=== PATIENT | female | born 1990 | race Caucasian/White ===

== ENCOUNTER → 2020-08-29 15:30 | Outpatient (BNVA) | payer OTHER, SELFPAY | PROVIDERS: Visit Provider Advanced Practice Midwife | DX: Z30.42 Encounter for surveillance of injectable contraceptive (principal) | CPT/HCPCS: 99211 ==

== ENCOUNTER → 2020-11-15 15:06 | Outpatient (BNVA) | payer OTHER, SELFPAY | PROVIDERS: Visit Provider Advanced Practice Midwife | DX: Z30.42 Encounter for surveillance of injectable contraceptive (principal) | CPT/HCPCS: 96372; 99211; J1050 ==

== ENCOUNTER → 2021-01-31 15:11 | Outpatient (BNVA) | payer OTHER, SELFPAY | PROVIDERS: Visit Provider Advanced Practice Midwife | DX: Z30.42 Encounter for surveillance of injectable contraceptive (principal) | CPT/HCPCS: 96372; 99211; J1050 ==

== ENCOUNTER 2021-06-01 13:53 | Outpatient (REF) | payer OTHER, SELFPAY ==
[2021-06-02 09:53] LABS: CT PCR NOT DETECTED (Not Detect.); NG PCR NOT DETECTED (Not Detect.)
[2021-06-02 10:08] LABS: BV Int Neg Control Negative (Negative); BV Int Pos Control Positive (Positive)
== END 2021-06-01 13:54 | disposition home or self-care (01) ==
LOC: HO.LAB 13:53
PROVIDERS: Visit Provider Advanced Practice Midwife
DX: Z01.411 Encounter for gynecological examination (general) (routine) with abnormal findings (principal); R10.2 Pelvic and perineal pain; Z20.2 Contact with and (suspected) exposure to infections with a predominantly sexual mode of transmission
CPT/HCPCS: 81003; 81025; 87086; 87480; 87491; 87510; 87591; 87660; 88142; 96372

== ENCOUNTER 2021-07-24 10:49 | Outpatient (REF) | payer OTHER, SELFPAY ==
[2021-07-24 13:02] LABS: Appearance Urine CLEAR; Color Urine YELLOW; Glucose Urine UA NEG (NEG); Leukocyte Esterase Urine NEG (NEG); Nitrite Urine NEG (NEG); UACC Culture Trigger NO; Urine Blood TRACE (NEG); Urine Ketones 5 MG/DL (NEG); Urine Protein NEG (NEG-TRACE)
[2021-07-24 13:14] LABS: WBC Urine 0-2 /HPF (0-4)
[2021-07-24 13:15] LABS: Squamous Epithelial Cell Urine 1+ /LPF
== END 2021-07-24 10:50 | disposition home or self-care (01) ==
LOC: HO.LAB 10:49
PROVIDERS: Visit Provider Advanced Practice Midwife
DX: R30.0 Dysuria (principal)
CPT/HCPCS: 81001; 81003

== ENCOUNTER 2021-10-23 13:52 | Emergency (ER) | payer OTHER, SELFPAY ==
[2021-10-23 15:07] VITALS: BP 144/95; PULSE 105; RESP 18; TEMP 37.1; O2SAT 100
[2021-10-23 15:45] VITALS: BP 120/68; PULSE 63; RESP 18; TEMP 36.8; O2SAT 100; BMI 29.0
== END 2021-10-23 16:55 | disposition left against medical advice (07) ==
PROVIDERS: Emergency Provider Emergency Medicine
DX: R31.9 Hematuria, unspecified (principal)
CPT/HCPCS: 99283

== ENCOUNTER 2021-10-30 15:22 | Outpatient (REF) | payer OTHER, SELFPAY ==
--- NOTE | ~2021-10-30 | XR_ITS ---
EXAMINATION: XR LUMBAR SPINE XR SACRUM COCCYX CLINICAL INFORMATION: Nausea COMPARISON: None TECHNIQUE: 4 views of the lumbar spine and 3 views of the sacrum and coccyx FINDINGS: 5 nonrib-bearing lumbar-type vertebral bodies. No acute visible fracture or dislocation. Mild levocurvature at the thoracolumbar junction. Vertebral body heights and disc spaces are maintained. Posterior elements are intact. Paraspinal soft tissues are unremarkable. Mild degenerative changes of the left sacroiliac joint. Joint spaces and alignment are otherwise maintained. Pelvic loops are noted. Visualized bowel gas is unremarkable. XR/XR sacrum coccyx min 2V IMPRESSION: 1. No acute visible fracture or dislocation. 2. Mild levocurvature at the thoracolumbar junction. 3. Mild degenerative changes of the left sacroiliac joint.
--- NOTE | ~2021-10-30 | XR_ITS ---
EXAMINATION: XR LUMBAR SPINE XR SACRUM COCCYX CLINICAL INFORMATION: Nausea COMPARISON: None TECHNIQUE: 4 views of the lumbar spine and 3 views of the sacrum and coccyx FINDINGS: 5 nonrib-bearing lumbar-type vertebral bodies. No acute visible fracture or dislocation. Mild levocurvature at the thoracolumbar junction. Vertebral body heights and disc spaces are maintained. Posterior elements are intact. Paraspinal soft tissues are unremarkable. Mild degenerative changes of the left sacroiliac joint. Joint spaces and alignment are otherwise maintained. Pelvic loops are noted. Visualized bowel gas is unremarkable. XR/XR lumbar spine 2-3V IMPRESSION: 1. No acute visible fracture or dislocation. 2. Mild levocurvature at the thoracolumbar junction. 3. Mild degenerative changes of the left sacroiliac joint.
== END 2021-10-30 15:23 | disposition home or self-care (01) ==
LOC: HO.XRAY 15:22
PROVIDERS: Visit Provider Nurse Practitioner
DX: Z01.818 Encounter for other preprocedural examination (principal); R11.0 Nausea; K59.04 Chronic idiopathic constipation; M53.3 Sacrococcygeal disorders, not elsewhere classified
CPT/HCPCS: 72100; 72220; 99202

== ENCOUNTER 2021-11-03 12:43 | Outpatient (REF) | payer OTHER, SELFPAY ==
[2021-11-03 13:04] LABS: MANUAL DIFF FLAG NO
[2021-11-03 13:18] LABS: Basophils Percent Auto 0.5 % (0-2); Eosinophils Absolute Auto 0.1 X10*3/uL (0.0-0.4); Eosinophils Percent Auto 2.6 % (0-4); Hematocrit 42.1 % (37.0-47.0); Hemoglobin 13.9 g/dl (12.0-16.0); Lymphocytes Absolute Auto 2.1 X10*3/uL (1.2-4.9); Mean Corpuscular Hemoglobin 28.5 pg (27.0-33.0); Mean Corpuscular Volume 86.3 fL (80.0-98.0); Mean Platelet Volume 8.6 fL (9.4-12.3); Monocytes Absolute Auto 0.4 X10*3/uL (0.1-1.2); Monocytes Percent Auto 6.6 % (2-11); Neutrophils Absolute Auto 2.8 x10*3/uL (2.0-8.3); Neutrophils Percent Auto 51.3 % (45-73); Platelet Count 335 X10*3/uL (160-400); Red Blood Count 4.88 X10*6/uL (4.20-5.50); Red Cell Distribution Width 13.2 % (11.0-16.0); White Blood Count 5.5 X10*3/uL (4.8-10.8)
[2021-11-03 13:39] LABS: Alanine Aminotransferase 13 U/L (0-31); Albumin Level 4.5 g/dL (3.5-5.0); Alkaline Phosphatase 57 U/L (39-117); Anion Gap 10 (12-20); Aspartate Amino Transferase 14 U/L (5-31); Bilirubin Total 0.5 mg/dL (0.0-1.0); Blood Urea Nitrogen 14 mg/dL (9-16); Calcium 9.9 mg/dL (8.4-10.2); Carbon Dioxide 26 mmol/L (22-29); Chloride 108 mmol/L (96-108); Estimated Glomerular Filt Rate > 60; Glucose Random 90 mg/dL (60-115); Potassium 4.4 mmol/L (3.3-5.1); Sodium 140 mmol/L (135-145); Total Protein 8.2 g/dL (6.5-8.0)
[2021-11-03 13:58] LABS: TSH reflex Free T4 0.56 uIU/mL (0.32-4.0)
== END 2021-11-03 12:44 | disposition home or self-care (01) ==
LOC: HO.LAB 12:43
PROVIDERS: Visit Provider Nurse Practitioner
DX: K59.04 Chronic idiopathic constipation (principal); M53.3 Sacrococcygeal disorders, not elsewhere classified; R11.0 Nausea
CPT/HCPCS: 36415; 80053; 84443; 85025

== ENCOUNTER 2021-11-17 11:09 | Outpatient (REF) | payer OTHER, SELFPAY | END 2021-11-17 11:10 | disposition home or self-care (01) | LOC: HO.LAB 11:09 | DX: R31.9 Hematuria, unspecified (principal) | CPT/HCPCS: 99202 ==

== ENCOUNTER → 2021-11-28 15:28 | Outpatient (BNVA) | payer OTHER, SELFPAY | PROVIDERS: Visit Provider Nurse Practitioner | DX: M53.3 Sacrococcygeal disorders, not elsewhere classified (principal) | CPT/HCPCS: 99212 ==

== ENCOUNTER 2021-12-07 15:57 | Outpatient (REF) | payer OTHER, SELFPAY ==
--- NOTE | ~2021-12-07 | US_ITS ---
EXAMINATION: US RETROPERITONEAL LIMITED (RENAL ONLY) CLINICAL INFORMATION: Hematuria, unspecified. COMPARISON: CT abdomen and pelvis 05/03/2019. TECHNIQUE: Real-time imaging of the kidneys. FINDINGS: RIGHT KIDNEY: 11.0 x 4.7 x 5.7 cm (SAG x AP x TRV). The kidney is normal in size, contour, and echogenicity. Renal cortical thickness is normal. There is a 3.2 x 2.3 x 3.4 cm area in the central mid pole isoechoic with the renal cortex. This probably represents a hypertrophied or prominent column of David. No mass is evident on noncontrast enhanced CT April 2019 in this region. No renal calculi or hydronephrosis. LEFT KIDNEY: 10.9 x 5.0 x 5.6 cm (SAG x AP x TRV). The kidney is normal in size, contour, and echogenicity. Renal cortical thickness is normal. No calculi or focal parenchymal lesions. No hydronephrosis. US/US renal BI IMPRESSION: Probable hypertrophied or prominent column of David in the right kidney. Otherwise unremarkable exam.
== END 2021-12-07 15:58 | disposition home or self-care (01) ==
LOC: HO.US 15:57
DX: R31.9 Hematuria, unspecified (principal)
CPT/HCPCS: 76775

== ENCOUNTER 2022-02-22 14:00 | Outpatient (RCR) | payer OTHER, SELFPAY ==
--- NOTE | 2022-01-19 16:30 | MHC.PT.EP ---
[facility] [place] Office [place] Office [place] Office [address] Lobo Lerner [address] [phone] F: [phone] F: [phone] F: [phone] F: [phone] Physical Therapy Plan of Care Date of Evaluation: Date of Surgery: NA Diagnosis: Pelvic and perineal pain Assessment: Fransisca is a a 31 year old female who is referred to PT for pelvic and perineal pain . Pt reports of having low back pain which travels down to her perineum with sit to stand, and bending over. Her symptoms started 6 months after giving . She also reported of having SAUD. On PT examination she presented with low tone of PFM, lower perineal body, decreased pelvic floor muscle strength, possible grade 2 cystocole and grade 1 rectocele and TTP over several spots in the superficial and deep layers of pelvic floor. Due to these impairments she has difficulty performing ADLS which require her to bend over, and perform sit to stand. She would benefit from skilled PT to address the aforementioned impairments and improve tolerance to functional activities. Frequency and Duration: The patient will be seen 1/week for 12 weeks Short Term Goals: 1. Pt will have 50% decrease in pain in sitting and demonstrate good use of lumbar roll while sitting in 2 weeks 2. Pt will demonstrate WNL pelvic floor excursion and ability to contract, relax and bear down in 4 weeks. 3. Pt will demonstrate an increase in pelvic floor muscle strength by 1 grade which will prevent leakage with coughing and sneezing in 6 weeks. Husker Operator Goals: 1. Pt will be able to perform sit to stand and bend over to picker operator objects without pain in 8 weeks. 2. Pt will demonstrate ability to activate PFM in various functional positions like squatting, kneeling, sit to housing quality standard inspector 10 weeks. 3. Pt will be independent with HEP for symptom management and maintenance following d/c in 12 weeks. Treatment Plan: Modalities to reduce pain, spasms and effusion. Manual therapy to restore motion and function. Therapeutic exercise to improve strength and flexibility. Neuromuscular re-education for posture and balance. Therapeutic activities to return to functional activities of daily living. Electronically signed by: Please sign and return to therapist. Thank you for your referral.
--- NOTE | 2022-03-01 11:36 | MHC.PT.DC ---
[facility] [place] Office [place] Office [place] Office [address] Lobo Lerner 140 [facility] [phone] F: [phone] F: [phone] F: [phone] F: [phone] Physical Therapy Discharge Report Diagnosis: Pelvic and perineal pain Date of Surgery: NA Date of Evaluation: 01/19/22 Date of Discharge: 03/01/22 Treatments to Date: 3 Cancellations to Date: 3 No Shows to Date: 0 Discharge Status: Patient Elected to Stop Discharge Summary: Fransisca d/c herself from PT as she had personal issues which was making it difficult for her to attend PT. She stated she will return to therapy when she has the ability to attend the session. Electronically signed by: Kimberlyn Baxter PT DPT Please sign and return to therapist. Thank you for your referral.
== END 2022-03-01 11:37 | disposition home or self-care (01) ==
LOC: HO.PT 14:00
DX: R10.2 Pelvic and perineal pain (principal)
CPT/HCPCS: 97110; 97112; 97140; 97161

== ENCOUNTER 2023-01-28 12:51 | Emergency (ER) | payer BC, SELFPAY ==
--- NOTE | ~2023-01-28 | US_ITS ---
EXAMINATION: US OBSTETRICAL ULTRASOUND CLINICAL INFORMATION: 8 weeks . Bleeding. COMPARISON: None available.. LMP: 11/02/2022. Gestational age by maternal dates is 12 weeks 3 days. Estimated date of delivery by maternal dates is 08/09/2023. TECHNIQUE: Ultrasound of the maternal pelvis is performed using transabdominal transducer. M-mode Doppler is also performed. FINDINGS: There is a single intrauterine gestational sac with visible yolk sac, embryo/fetus, and cardiac activity. A subchorionic hemorrhage is identified. This measures 5.9 x 3.9 x 5.3 cm.. HR: 161 beats per minute. CRL (crown rump length): 4.44 cm (11 weeks 2 days +/- 4 days). BEATRIZ (estimated date of delivery): 08/17/2023 +/- 4 days. MATERNAL ADNEXA: The right maternal ovary measures 2.3 x 1.2 and 1.9 cm. The left maternal ovary measures 2.2 x 2.2 x 2.3 cm. 2 cm corpus luteum. There is no significant maternal adnexal mass. No maternal pelvic ascites. US/US OB <= 14 weeks fetus IMPRESSION: 1. Single intrauterine gestation with ultrasound gestational age of 11 weeks 2 days +/- 4 days. 2. Estimated date of delivery is 08/17/2023 +/- 4 days. 3. Subchorionic hemorrhage present.
[2023-01-28 13:07] VITALS: BP 143/77; PULSE 95; RESP 19; TEMP 36.6; O2SAT 98; BMI 25.0
--- NOTE | 2023-01-28 13:08 | ED.PREGNANCY ---
HPI - General Chief complaint: General Medical <JIMENA Narvaez - Last Filed: 01/28/23 13:10> Stated complaint: quest of miscarriage <JIMENA Narvaez - Last Filed: 01/28/23 13:10> Time Seen by Provider: 01/28/23 16:31 <JIMENA Narvaez - Last Filed: 01/28/23 13:10> Source: patient <Darell Simmons MD - Last Filed: 01/28/23 17:29> Mode of arrival: ambulatory <Darell Simmons MD - Last Filed: 01/28/23 17:29> Limitations: no limitations <Darell Simmons MD - Last Filed: 01/28/23 17:29> History of Present Illness HPI Narrative: 32 yo female currently 13 weeks , LMP 11/02/22 who presents to the ER for evaluation of brown vaginal discharge/wiping bright-red blood after urination that started 2 hours ago. She reports mild sprits of cramping but no severe pain. Scheduled to see her OBGYN for this and 3 days. 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 <Darell Simmons MD - Last Filed: 01/28/23 17:29> Related Data Home medications: Previous Rx's Medication Instructions Recorded medroxyprogesterone 150 mg/mL 150 mg IM [id number] #1 mL 05/09/22 intramuscular suspension (Depo-Provera) doxylamine succinate 25 mg tablet 25 mg PO BEDTIME may take 1/2 tab 01/28/23 (Unisom (doxylamine)) at bedtime 30 days #30 tabs pyridoxine (vitamin B6) 25 mg 25 mg PO TID 30 days #90 tabs 01/28/23 tablet <JIMENA Narvaez - Last Filed: 01/28/23 13:10> Allergies/Adverse reactions: Allergies Allergy/AdvReac Type Severity Reaction Status Date / Time No Known Allergies Allergy Verified 01/28/23 13:06 [No Known Allergies*] <JIMENA Narvaez - Last Filed: 01/28/23 13:10> Review of Systems Review of Systems: All other systems are reviewed and are negative Constitutional: Reports as per HPI and Reports no additional constitutional complaints Eyes: Reports as per HPI and Reports no additional eye complaints Reports system reviewed and no additional complaints, except as documented Cardiovascular: Reports as per HPI and Reports no additional cardiovascular complaints Respiratory: Reports as per HPI and Reports no additional respiratory complaints Gastrointestinal: Reports as per HPI and Reports no additional gastrointestinal complaints Genitourinary: Reports no additional female genitourinary complaints Musculoskeletal: Reports no additional musculoskeletal complaints Skin/Breast: Reports system reviewed and no additional complaints, except as docu Psychiatric: Reports no additional psychiatric complaints Endocrine: Reports no additional endocrine complaints Hematologic/Lymphatic: Reports no additional hematologic/lymphatic complaints Allergic/Immunologic: Reports no additional allergic/immunologic complaints Reports system reviewed and no additional complaints, except as documented and Reports Abnormal speech present <Darell Simmons MD - Last Filed: 01/28/23 17:29> [facility] Past Medical History Medical History: Medical History Coccygeal pain Hematuria <JIMENA Narvaez - Last Filed: 01/28/23 13:10> Social History Social History: Social History Alcohol intake: never Patient Tobacco Use Status: Never used Tobacco Advance Directives: No Advance Directives Information Provided: No Sexual orientation: Straight/Heterosexual Gender identity: Female <JIMENA Narvaez - Last Filed: 01/28/23 13:10> Physical Exam Vital Signs: Vital Signs: Last Vital Signs Temp 98 F 01/28/23 13:07 Pulse 95 01/28/23 13:07 Resp 01/28/23 13:07 BP 143/77 H 01/28/23 13:07 Pulse Ox 98 01/28/23 13:07 BMI result Body Mass Index 25.0 <JIMENA Narvaez - Last Filed: 01/28/23 13:10> Vital Signs: Last Vital Signs Temp 98 F 01/28/23 13:07 Pulse 95 01/28/23 13:07 Resp 19 01/28/23 13:07 BP 143/77 H 01/28/23 13:07 Pulse Ox 98 01/28/23 13:07 BMI result Body Mass Index 25.0 Vital signs have been reviewed as appeared to be correct. Blood pressure normal. Heart rate normal. Respiration rate normal. Temperature normal. Oxygen saturation normal. <Darell Simmons MD - Last Filed: 01/28/23 17:29> Appearance: Alert. Oriented X3. No acute distress. Head: Normal external exam. Normocephalic. Atraumatic. No Sorensen signs noted. No raccoon eyes noted Eyes: PERRLA. EOMI. Conjunctiva and sclera normal. Eyelids normal. ENT: TM's Normal. Pharynx normal. Uvula midline. Moist mucous membranes. No trismus noted. No drooling noted. No muffled voice noted. Neck: Normal inspection. Neck supple. FROM. No adenopathy. Thyroid Normal. No meningeal signs. No neck mass noted. CVS: Normal heart rate and rhythm. Heart sound normal. No murmurs noted. Pulses normal throughout. Respiratory: No respiratory distress. Painless inspiration. Breath sounds normal. No wheezes/rales/rhonchi noted. Chest nontender. No accessory muscle usage noted or decreased air movement noted. Abdomen: Soft and nontender. Bowel sounds normal in all 4 quadrants. No distention noted. No organomegaly noted. No visible injury noted. Pelvic exam: No acute active bleeding, no blood clots, os is closed, scant blood in the cervical vault. Back: No CVA tenderness. Full range of motion noted. Skin: Skin warm and dry. Normal skin color. Normal skin turgor. No rashes/lesions/lacerations noted. Extremities: No lower extremity edema. Extremities exhibit normal range of motion. Extremities nontender. Neuro: Oriented X 3. Cranial nerve exam: II-XII are grossly intact No motor deficit. No sensory deficit. Reflexes normal. <Darell Simmons MD - Last Filed: 01/28/23 17:29> Course Course Course Narrative: RME - 32 yo female currently 13 weeks , LMP 11/02/22 who presents to the ER for evaluation of brown vaginal discharge that started 2 hours ago. She reports mild sprits of cramping but no severe pain. Has not seen her OB yet for this . Not taking a due to persistent nausea and vomiting. Plan: labs and pelvic U/S. <JIMENA Narvaez - Last Filed: 01/28/23 13:10> Threatened : Bedrest, refrain from strenuous activity and sexual intercourse, patient otherwise was instructed to follow up with her scheduled 1st appointment for this in 2 days with Ob. Otherwise stable H&H, vital signs. Patient is B Rh positive <Darell Simmons MD - Last Filed: 01/28/23 17:29> Medical Decision Making Differential Diagnosis Differential Diagnoses: The differential diagnosis associated with the presentation includes (Threatened , complete , hemodynamic instability, severe anemia, ABO Rh type) <Darell Simmons MD - Last Filed: 01/28/23 17:29> Lab Data MDM Lab Attestation statement: I reviewed the patient's lab results. <Darell Simmons MD - Last Filed: 01/28/23 17:29> Result Diagrams: 01/28/23 15:30 01/28/23 15:30 <JIMENA Narvaez - Last Filed: 01/28/23 13:10> Labs: Lab Results 01/28/23 01/28/23 01/28/23 Range/Units 15:30 15:30 15:30 WBC 6.6 (4.8-10.8) X10*3/uL RBC 4.54 (4.20-5.50) X10*6/uL Hgb 12.9 (12.0-16.0) g/dl Hct 38.7 (37.0-47.0) % MCV 85.2 (80.0-98.0) fL MCH 28.4 (27.0-33.0) pg MCHC 33.3 (31.0-35.0) g/dl RDW 13.1 (11.0-16.0) % Plt Count 312 (160-400) X10*3/uL MPV 8.5 L (9.4-12.3) fL Immature Gran % (Auto) 0.3 (0.0-0.4) % Neut % (Auto) 60.2 (45-73) % Lymph % (Auto) 31.2 (20-40) % [place] % (Auto) 6.6 (2-11) % Eos % (Auto) 1.2 (0-4) % Baso % (Auto) 0.5 (0-2) % Lymph # (Auto) 2.1 (1.2-4.9) X10*3/uL [place] # (Auto) 0.4 (0.1-1.2) X10*3/uL Eos # (Auto) 0.1 (0.0-0.4) X10*3/uL Baso # (Auto) 0.0 (0.0-0.2) X10*3/uL Abs Immat Gran (auto) 0.02 (0.00-0.03) X10*3/uL Absolute Neuts (auto) 4.0 (2.0-8.3) x10*3/uL Absolute Nucleated RBC 0.000 (0.0-0.012) X10*3/uL Nucleated RBC % (auto) 0.0 (0.0-0.2) /100WBC Sodium 137 (135-145) mmol/L Potassium 3.7 (3.3-5.1) mmol/L Chloride 105 (96-108) mmol/L Carbon Dioxide 25 (22-29) mmol/L Anion Gap 11 L (12-20) BUN 8 L (9-16) mg/dL Creatinine 0.63 (0.5-1.4) mg/dL Estim Creat Clear Calc 122.2 Estimated GFR > 60 Random Glucose 84 (60-115) mg/dL Calcium 9.5 (8.4-10.2) mg/dL Magnesium 2.0 (1.6-2.6) mg/dL Total Bilirubin 0.5 (0.0-1.0) mg/dL Direct Bilirubin 0.2 (0.0-0.5) mg/dL AST 11 (5-31) U/L ALT 7 (0-31) U/L Alkaline Phosphatase 42 (39-117) U/L Total Protein 7.4 (6.5-8.0) g/dL Albumin 4.2 (3.5-5.0) g/dL Beta HCG, Quant 41133 mIU/mL Urine Color Urine Appearance Urine pH (5.0-9.0) Ur Specific [place] (1.005-1.025) Urine Protein (Neg-Trace) mg/dL Urine Glucose (UA) (Negative) mg/dL Urine Ketones (Negative) mg/dL Urine Blood (Negative) Urine Nitrite (Negative) Ur Leukocyte Esterase (Negative) Urine RBC (0-2) /HPF Urine WBC (0-5) /HPF Ur Squamous Epith Cells (0-2) /HPF Urine Bacteria (None Seen) Hyaline Casts (0-2) /LPF Blood Type B Positive 01/28/23 Range/Units 15:30 WBC (4.8-10.8) X10*3/uL RBC (4.20-5.50) X10*6/uL Hgb (12.0-16.0) g/dl Hct (37.0-47.0) % MCV (80.0-98.0) fL MCH (27.0-33.0) pg MCHC (31.0-35.0) g/dl RDW (11.0-16.0) % Plt Count (160-400) X10*3/uL MPV (9.4-12.3) fL Immature Gran % (Auto) (0.0-0.4) % Neut % (Auto) (45-73) % Lymph % (Auto) (20-40) % [place] % (Auto) (2-11) % Eos % (Auto) (0-4) % Baso % (Auto) (0-2) % Lymph # (Auto) (1.2-4.9) X10*3/uL [place] # (Auto) (0.1-1.2) X10*3/uL Eos # (Auto) (0.0-0.4) X10*3/uL Baso # (Auto) (0.0-0.2) X10*3/uL Abs Immat Gran (auto) (0.00-0.03) X10*3/uL Absolute Neuts (auto) (2.0-8.3) x10*3/uL Absolute Nucleated RBC (0.0-0.012) X10*3/uL Nucleated RBC % (auto) (0.0-0.2) /100WBC Sodium (135-145) mmol/L Potassium (3.3-5.1) mmol/L Chloride (96-108) mmol/L Carbon Dioxide (22-29) mmol/L Anion Gap (12-20) BUN (9-16) mg/dL Creatinine (0.5-1.4) mg/dL Estim Creat Clear Calc Estimated GFR Random Glucose (60-115) mg/dL Calcium (8.4-10.2) mg/dL Magnesium (1.6-2.6) mg/dL Total Bilirubin (0.0-1.0) mg/dL Direct Bilirubin (0.0-0.5) mg/dL AST (5-31) U/L ALT (0-31) U/L Alkaline Phosphatase (39-117) U/L Total Protein (6.5-8.0) g/dL Albumin (3.5-5.0) g/dL Beta HCG, Quant mIU/mL Urine Color Yellow Urine Appearance Clear Urine pH 8.0 (5.0-9.0) Ur Specific [place] 1.010 (1.005-1.025) Urine Protein Negative (Neg-Trace) mg/dL Urine Glucose (UA) Negative (Negative) mg/dL Urine Ketones Negative (Negative) mg/dL Urine Blood Small (1+) H (Negative) Urine Nitrite Negative (Negative) Ur Leukocyte Esterase Negative (Negative) Urine RBC 6-10 H (0-2) /HPF Urine WBC 0-5 (0-5) /HPF Ur Squamous Epith Cells 0-2 (0-2) /HPF Urine Bacteria None Seen (None Seen) Hyaline Casts 0-2 (0-2) /LPF Blood Type <JIMENA Narvaez - Last Filed: 01/28/23 13:10> Lab Results 01/28/23 01/28/23 01/28/23 Range/Units 15:30 15:30 15:30 WBC 6.6 (4.8-10.8) X10*3/uL RBC 4.54 (4.20-5.50) X10*6/uL Hgb 12.9 (12.0-16.0) g/dl Hct 38.7 (37.0-47.0) % MCV 85.2 (80.0-98.0) fL MCH 28.4 (27.0-33.0) pg MCHC 33.3 (31.0-35.0) g/dl RDW 13.1 (11.0-16.0) % Plt Count 312 (160-400) X10*3/uL MPV 8.5 L (9.4-12.3) fL Immature Gran % (Auto) 0.3 (0.0-0.4) % Neut % (Auto) 60.2 (45-73) % Lymph % (Auto) 31.2 (20-40) % [place] % (Auto) 6.6 (2-11) % Eos % (Auto) 1.2 (0-4) % Baso % (Auto) 0.5 (0-2) % Lymph # (Auto) 2.1 (1.2-4.9) X10*3/uL [place] # (Auto) 0.4 (0.1-1.2) X10*3/uL Eos # (Auto) 0.1 (0.0-0.4) X10*3/uL Baso # (Auto) 0.0 (0.0-0.2) X10*3/uL Abs Immat Gran (auto) 0.02 (0.00-0.03) X10*3/uL Absolute Neuts (auto) 4.0 (2.0-8.3) x10*3/uL Absolute Nucleated RBC 0.000 (0.0-0.012) X10*3/uL Nucleated RBC % (auto) 0.0 (0.0-0.2) /100WBC Sodium 137 (135-145) mmol/L Potassium 3.7 (3.3-5.1) mmol/L Chloride 105 (96-108) mmol/L Carbon Dioxide 25 (22-29) mmol/L Anion Gap 11 L (12-20) BUN 8 L (9-16) mg/dL Creatinine 0.63 (0.5-1.4) mg/dL Estim Creat Clear Calc 122.2 Estimated GFR > 60 Random Glucose 84 (60-115) mg/dL Calcium 9.5 (8.4-10.2) mg/dL Magnesium 2.0 (1.6-2.6) mg/dL Total Bilirubin 0.5 (0.0-1.0) mg/dL Direct Bilirubin 0.2 (0.0-0.5) mg/dL AST 11 (5-31) U/L ALT 7 (0-31) U/L Alkaline Phosphatase 42 (39-117) U/L Total Protein 7.4 (6.5-8.0) g/dL Albumin 4.2 (3.5-5.0) g/dL Beta HCG, Quant 47716 mIU/mL Urine Color Urine Appearance Urine pH (5.0-9.0) Ur Specific [place] (1.005-1.025) Urine Protein (Neg-Trace) mg/dL Urine Glucose (UA) (Negative) mg/dL Urine Ketones (Negative) mg/dL Urine Blood (Negative) Urine Nitrite (Negative) Ur Leukocyte Esterase (Negative) Urine RBC (0-2) /HPF Urine WBC (0-5) /HPF Ur Squamous Epith Cells (0-2) /HPF Urine Bacteria (None Seen) Hyaline Casts (0-2) /LPF Blood Type B Positive 01/28/23 Range/Units 15:30 WBC (4.8-10.8) X10*3/uL RBC (4.20-5.50) X10*6/uL Hgb (12.0-16.0) g/dl Hct (37.0-47.0) % MCV (80.0-98.0) fL MCH (27.0-33.0) pg MCHC (31.0-35.0) g/dl RDW (11.0-16.0) % Plt Count (160-400) X10*3/uL MPV (9.4-12.3) fL Immature Gran % (Auto) (0.0-0.4) % Neut % (Auto) (45-73) % Lymph % (Auto) (20-40) % [place] % (Auto) (2-11) % Eos % (Auto) (0-4) % Baso % (Auto) (0-2) % Lymph # (Auto) (1.2-4.9) X10*3/uL [place] # (Auto) (0.1-1.2) X10*3/uL Eos # (Auto) (0.0-0.4) X10*3/uL Baso # (Auto) (0.0-0.2) X10*3/uL Abs Immat Gran (auto) (0.00-0.03) X10*3/uL Absolute Neuts (auto) (2.0-8.3) x10*3/uL Absolute Nucleated RBC (0.0-0.012) X10*3/uL Nucleated RBC % (auto) (0.0-0.2) /100WBC Sodium (135-145) mmol/L Potassium (3.3-5.1) mmol/L Chloride (96-108) mmol/L Carbon Dioxide (22-29) mmol/L Anion Gap (12-20) BUN (9-16) mg/dL Creatinine (0.5-1.4) mg/dL Estim Creat Clear Calc Estimated GFR Random Glucose (60-115) mg/dL Calcium (8.4-10.2) mg/dL Magnesium (1.6-2.6) mg/dL Total Bilirubin (0.0-1.0) mg/dL Direct Bilirubin (0.0-0.5) mg/dL AST (5-31) U/L ALT (0-31) U/L Alkaline Phosphatase (39-117) U/L Total Protein (6.5-8.0) g/dL Albumin (3.5-5.0) g/dL Beta HCG, Quant mIU/mL Urine Color Yellow Urine Appearance Clear Urine pH 8.0 (5.0-9.0) Ur Specific [place] 1.010 (1.005-1.025) Urine Protein Negative (Neg-Trace) mg/dL Urine Glucose (UA) Negative (Negative) mg/dL Urine Ketones Negative (Negative) mg/dL Urine Blood Small (1+) H (Negative) Urine Nitrite Negative (Negative) Ur Leukocyte Esterase Negative (Negative) Urine RBC 6-10 H (0-2) /HPF Urine WBC 0-5 (0-5) /HPF Ur Squamous Epith Cells 0-2 (0-2) /HPF Urine Bacteria None Seen (None Seen) Hyaline Casts 0-2 (0-2) /LPF Blood Type <Darell Simmons MD - Last Filed: 01/28/23 17:29> Independent Interpretation I performed an independent interpretation of an: Ultrasound (1. Single intrauterine gestation with ultrasound gestational age of 11 weeks 2 days +/- 4 days. 2. Estimated date of delivery is 08/17/2023 +/- 4 days. 3. Subchorionic hemorrhage present.) <Darell Simmons MD - Last Filed: 01/28/23 17:29> Radiology Impression Discussion of test interpretation with radiology: I have reviewed the radiologist's reading. <Darell Simmons MD - Last Filed: 01/28/23 17:29> Discharge Plan Discharge Clinical Impression: , threatened <JIMENA Narvaez - Last Filed: 01/28/23 13:10> Patient Disposition: Home, Self-Care <JIMENA Narvaez - Last Filed: 01/28/23 13:10> Instructions: Threatened Miscarriage (ED) <JIMENA Narvaez - Last Filed: 01/28/23 13:10> Additional Instructions: Bedrest, refrain from standing for long time, lifting, bending, pushing, or sexual intercourse. Seek medical attention for severe cramps/pain or significant vaginal bleeding. Keep your appointment with med and 2 days as scheduled. <JIMENA Narvaez - Last Filed: 01/28/23 13:10> Prescriptions: No Action pyridoxine (vitamin B6) 25 mg tablet 25 mg PO TID 30 Days Qty: 90 1RF Unisom (doxylamine) 25 mg tablet 25 mg PO BEDTIME 30 Days Qty: 30 0RF medroxyprogesterone [Depo-Provera] 150 mg/mL suspension 150 mg IM [id number] Qty: 1 3RF <JIMENA Narvaez - Last Filed: 01/28/23 13:10>
[2023-01-28 15:39] LABS: MANUAL DIFF FLAG NO
[2023-01-28 15:41] LABS: Basophils Percent Auto 0.5 % (0-2); Eosinophils Absolute Auto 0.1 X10*3/uL (0.0-0.4); Eosinophils Percent Auto 1.2 % (0-4); Hematocrit 38.7 % (37.0-47.0); Hemoglobin 12.9 g/dl (12.0-16.0); Imm Gran Abs Auto 0.02 X10*3/uL (0.00-0.03); Imm Gran Pct Auto 0.3 % (0.0-0.4); Lymphocytes Absolute Auto 2.1 X10*3/uL (1.2-4.9); Lymphocytes Percent Auto 31.2 % (20-40); Mean Corpuscular HGB Conc 33.3 g/dl (31.0-35.0); Mean Corpuscular Hemoglobin 28.4 pg (27.0-33.0); Mean Corpuscular Volume 85.2 fL (80.0-98.0); Mean Platelet Volume 8.5 fL (9.4-12.3); Monocytes Absolute Auto 0.4 X10*3/uL (0.1-1.2); Monocytes Percent Auto 6.6 % (2-11); Neutrophils Percent Auto 60.2 % (45-73); Platelet Count 312 X10*3/uL (160-400); Red Blood Count 4.54 X10*6/uL (4.20-5.50); Red Cell Distribution Width 13.1 % (11.0-16.0); White Blood Count 6.6 X10*3/uL (4.8-10.8)
[2023-01-28 15:46] LABS: Appearance Urine Clear; Color Urine Yellow; Glucose Urine UA Negative (Negative); Leukocyte Esterase Urine Negative (Negative); Nitrite Urine Negative (Negative); UMIC TRIGGER UACC YES; Urine Blood Small (1+) (Negative); Urine Ketones Negative (Negative); Urine Protein Negative (Neg-Trace)
[2023-01-28 15:51] LABS: Bacteria Urine None Seen (None Seen); Hyaline Casts Urine 0-2 /LPF (0-2); Squamous Epithelial Cell Urine 0-2 /HPF (0-2); WBC Urine 0-5 /HPF (0-5)
[2023-01-28 16:01] LABS: Alanine Aminotransferase 7 U/L (0-31); Albumin Level 4.2 g/dL (3.5-5.0); Alkaline Phosphatase 42 U/L (39-117); Anion Gap 11 (12-20); Aspartate Amino Transferase 11 U/L (5-31); Bilirubin Direct 0.2 mg/dL (0.0-0.5); Bilirubin Total 0.5 mg/dL (0.0-1.0); Blood Urea Nitrogen 8 mg/dL (9-16); Calcium 9.5 mg/dL (8.4-10.2); Carbon Dioxide 25 mmol/L (22-29); Chloride 105 mmol/L (96-108); Creatinine Clr Calc Pharmacy 122.2; Estimated Glomerular Filt Rate > 60; Glucose Random 84 mg/dL (60-115); HCG Quantitative 14189 mIU/mL; Potassium 3.7 mmol/L (3.3-5.1); Sodium 137 mmol/L (135-145); Total Protein 7.4 g/dL (6.5-8.0)
[2023-01-28 17:38] VITALS: BP 104/66; PULSE 74; RESP 16; TEMP 37.2; O2SAT 98
== END 2023-01-28 17:56 | disposition home or self-care (01) ==
PROVIDERS: Physician Assistant; Emergency Provider Emergency Medicine
DX: O20.0 Threatened abortion (principal); Z79.899 Other long term (current) drug therapy; Z3A.13 13 weeks gestation of pregnancy
CPT/HCPCS: 36415; 76801; 80048; 80076; 81001; 83735; 84702; 85025; 86900; 86901; 99284

== ENCOUNTER 2023-01-30 09:08 | Outpatient (REF) | payer BC, SELFPAY ==
[2023-01-30 14:03] LABS: CT PCR NOT DETECTED (Not Detect.); NG PCR NOT DETECTED (Not Detect.)
[2023-01-31 10:03] LABS: BV Int Neg Control Negative (Negative); BV Int Pos Control Positive (Positive)
== END 2023-01-30 09:09 | disposition home or self-care (01) ==
LOC: HO.LNP 09:08
PROVIDERS: Visit Provider Advanced Practice Midwife
DX: O20.0 Threatened abortion (principal); Z20.2 Contact with and (suspected) exposure to infections with a predominantly sexual mode of transmission; R31.9 Hematuria, unspecified
CPT/HCPCS: 0353U; 87086; 87480; 87510; 87660

== ENCOUNTER 2023-02-15 12:34 | Outpatient (REF) | payer BC, SELFPAY ==
[2023-02-15 16:24] LABS: Amphetamine Screen Urine Not Detected (Not Detect); Barbiturates, Urine Not Detected (Not Detect); Benzodiazepines Screen Urine Not Detected (Not Detect); Cannabinoid Screen Urine POSITIVE (Not Detect); Cocaine Screen Urine Not Detected (Not Detect); Fentanyl, urine Not Detected (Not Detect); Opiate Screen Urine Not Detected (Not Detect); Phencyclidine Screen Urine Not Detected (Not Detect)
[2023-02-15 16:26] LABS: Hemoglobin 12.2 g/dl (12.0-16.0); Mean Corpuscular Hemoglobin 28.7 pg (27.0-33.0); Mean Corpuscular Volume 87.1 fL (80.0-98.0); Mean Platelet Volume 8.8 fL (9.4-12.3); Platelet Count 319 X10*3/uL (160-400); Red Blood Count 4.25 X10*6/uL (4.20-5.50); Red Cell Distribution Width 13.3 % (11.0-16.0); White Blood Count 6.4 X10*3/uL (4.8-10.8)
[2023-02-18 04:04] LABS: Syphilis Screen Nonreactive (Nonreactive)
[2023-02-18 04:10] LABS: HBsAGNum1 0.35 S/CO (0.00-0.99); HIV AB/AG Nonreactive (Nonreactive); HIV Num 1 0.07 S/CO (0.00-0.99); Hepatitis B Surface Antigen Negative (Negative); ~HepC Num1 0.22 S/CO (0.00-0.79); ~Hepatitis C Antibody Nonreactive (Nonreactive)
[2023-02-19 18:18] LABS: Rubella IgG Antibody 3.98 Index
[2023-02-27 11:39] LABS: CF Ethnicity NG; Cystic Fibrosis POSITIVE (NEGATIVE)
== END 2023-02-15 12:35 | disposition home or self-care (01) ==
LOC: HO.LAB 12:34
PROVIDERS: PCP Advanced Practice Midwife; Visit Provider Advanced Practice Midwife
DX: Z34.82 Encounter for supervision of other normal pregnancy, second trimester (principal)
CPT/HCPCS: 80307; 81220; 85027; 86762; 86780; 86787; 86803; 86850; 86900; 87086; 87340; 87389

== ENCOUNTER 2023-02-15 13:13 | Outpatient (REF) | payer BC, SELFPAY ==
--- NOTE | ~2023-02-15 | US_ITS ---
EXAMINATION: Limited OB ultrasound CLINICAL INFORMATION: Previous exam 01/28/2023 COMPARISON: None. TECHNIQUE: Transabdominal OB ultrasound FINDINGS: There is a single viable intrauterine . heart rate is 156 bpm. Yolk sac not seen. There is a subchorionic fluid collection suggestive of subchorionic hemorrhage measuring 6 x 0.9 x 4.4 cm. This measured 5.9 x 3.9 x 5.3 cm on previous exam and is slightly decreased in size. The maternal ovaries are normal. The right maternal ovary measures 2.8 x 1.3 x 2.8 cm. The left maternal ovary measures 2.3 x 1.7 x 2.3 cm. There is a 1.8 x 1.4 x 1.7 cm left corpus luteum. There is no fluid in the pelvis. US/US OB limited IMPRESSION: Single viable intrauterine . Interval decrease in subchorionic hemorrhage from 01/28/2023.
== END 2023-02-15 13:14 | disposition home or self-care (01) ==
LOC: HO.US 13:13
PROVIDERS: Visit Provider Advanced Practice Midwife
DX: O46.8X1 Other antepartum hemorrhage, first trimester (principal); O41.8X10 Other specified disorders of amniotic fluid and membranes, first trimester, not applicable or unspecified; Z3A.13 13 weeks gestation of pregnancy
CPT/HCPCS: 76815; 99212

== ENCOUNTER 2024-04-02 13:52 | Outpatient (AMB) | payer BC, SELFPAY ==
--- NOTE | 2024-04-02 14:42 | MHC.OFFVIS ---
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 She had to be induced for that delivery. She has been nursing and more recently pumping milk but she has not been giving it to her baby since it has been hurting her because she is afraid she could have breast cancer or something and does not want to if baby anything so she is pumping and dumping. The pain feels deep and feels to her like when she changes position that changes kind of where it is but it is at 11:00 o'clock left breast and it is deep on palpation I can not feel any mass or swelling or warmth or tenderness the patient is able to direct acne to exactly the spot there maybe settle change in tissue there but not that I can describe. No discrete mass. Patient also has a Nexplanon in place in her left arm, and was wondering if maybe the baby needing against her arm could have something to do with more chemicals being released, She also had a weird reaction when her partner came inside her twice and she is wondering if she has suddenly become allergic to is ejaculate. 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 Left breast essentially nontender no masses palpated either. Patient able to point my fingers in the direction at 11:00 o'clock where she feels tenderness and it is a very discrete location but I was not able to feel any discrete mass with any certainty there. There has no warmth no erythema. Assessment & Plan Assessment & Plan (1) mastalgia: Comment: x 2 months ,still pumping milk ( discarding 2' fear), breast pain 11 oo on left breast . Code(s): O92.29 - Other disorders of breast associated with and the puerperium Category: Medical (2) Nexplanon in place: Comment: States it was inserted 8 months ago immediately at [facility].. Code(s): Z97.5 - Presence of (intrauterine) contraceptive device Category: Medical Plan This note is constructed using voice recognition software. While every effort has been made to ensure accuracy, engine turner errors may have been included. I can not palpate any discrete mass there has no warmth or erythema or anything leaving me to suspect that she has mastitis. If there was any sign about I would have given her antibiotics at this point I am ordering breast ultrasound and diagnostic mammogram for the left breast and a breast surgery referral for follow-up. Discussed that if there were any thing that I can not palpate such as an abscess that it is possible there may be some intervention necessary and then she would be in the right hands for that. In the meantime I recommend she continue to do what she is doing she is expressing milk and I think she should continue to do that if she chose to give to the baby currently that would probably be be fine we have she ends up with a mammogram I would ask that she ask them how long she should pump and dump from after the mammogram. Her follow-up will be her breast surgery. I encouraged her to consider other issues that might have contributed to her unusual reactions during intercourse and discussed their so many processes in play at that event and it is very difficult to say what she experienced. Given that she has not had this reaction before now and this pain is new I would not think it would be related to the Nexplanon. Orders: Orders US breast LT complete Today O92.29 - Other disorders of breast associated with and the puerperium MM tomosynthesis diagnostic LT Today O92.29 - Other disorders of breast associated with and the puerperium Referrals Breast Surgery Referral O92.29 - Other disorders of breast associated with and the puerperium Coding Level of Care Code Est Pt Level 3 (14058) Diagnoses mastalgia O92.[address] Z97.5
[2024-04-02 14:43] VITALS: BMI 31.6
--- OUTSIDE RECORDS SUMMARY | 2024-04-03 11:19 | XMS_ITS | Continuity of Care Document ---
Author Organization [facility] Address [address] [place] [address], [address] [place] [address]- Care Team Providers Care Site Safety Coordinator Name Role Phone Not on Staff, PCP Primary Care Physician Unavail able [place] [facility] [place]s): 07/29/23 - 08/05/23 [facility] [address] [facility], [address]th [place] [address]- Attending Physician: Luciano Lechuga MD Admitting Physician: Namrata Wang MD Referring Physician: Namrata Wang MD Allergies, Adverse Reactions, Alerts No Known Allergies Immunizations Given and Recorded Vaccine Date Status Refusal Reason influenza virus vaccine, inactivated 1 07/29/23 Gi lilliam tetanus/diphtheria/pertussis, acel(Tdap) 05/20/23 Given 1Result Comment: [07/29/2023] [id number] Medications Albuterol (Eqv-ProAir HFA) 90 mcg/inh inhalation aerosol 2 puffs, Inhalation, Every 6 hours, # 8.5 Gm, 1 Refills, Maintenance, 04/17/23 11:11:00 EDT, [facility]/pharmacy #[id number], Partial fill upon patient request if the prescription is for a schedule II opioid drug., 2 puffs Inhalation Every 6 hours, 167.6, cm, 02/26... Start Date: 04/17/23 Status: Ordered MiraLax oral powder for reconstitution = 17 Gm, By Mouth, Daily, dissolve in water before taking, # 527 Gm, 1 Refills, Maintenance, 05/06/23 16:56:00 EDT, REC Powder, [id number], Partial fill upon patient request if the prescription is for a schedule II opioid drug., 17 Gm By Mouth... Start Date: 05/06/23 Status: Ordered PNV Plus By Mouth, Daily, 0 Refills, Maintenance, 03/11/23 11:31:00 EDT, Partial fill upon patient request if the prescription is for a schedule II opioid drug. Start Date: 03/11/23 Status: Ordered Unisom = 25 mg, By Mouth, Daily, 0 Refills, Maintenance, 07/31/23 17:41:00 EDT, Partial fill upon patient request if the prescription is for a schedule II opioid drug. Start Date: 07/31/23 Status: Ordered Vitamin B6 Daily, 0 Refills, Maintenance, 07/31/23 17:41:00 EDT, Partial fill upon patient request if the prescription is for a schedule II opioid drug. Start Date: 07/31/23 Status: Ordered Problem List Condition Confirmation Course Effective Dates Status Health St atus Informant Grief reaction Confirmed Active History of prior with IUGR Confirmed Active Mild intermittent asthma Confirmed Active Obese class I Confirmed Active Vital Signs Most recent to oldest [Reference Range]: 1 Height 167.6 cm (07/29/23 4:15 PM) Weight 95.45 kg (07/29/23 4:15 PM) Body Mass Index [18.5-24.99 kg/m2] 33.98 kg/m2 *>HHI* (07/29/23 4:15 PM) Blood Pressure [90-138/55-84 mm Hg] 108/ 60mm Hg (07/29/23 4:15 PM) Blood pressure sites Arm, right (07/29/23 4:15 PM) Weight Obtained Via Standing scale (07/29/23 4:15 PM) Social History Social History Type Response Smoking Status Never (less than 100 in lifetime) entered on: 03/11/23 Sex Patient Care team information Care Team Personnel Name: Not on Staff, PCP Position: S Physician (General Medicine) Member Role: PCP Care Team Related Persons Name: PRADIP CARLIN Address: home [address] [place] [id number]
--- OUTSIDE RECORDS SUMMARY | 2024-04-03 11:19 | XMS_ITS | Continuity of Care Document ---
Author Organization [facility] Address [address] [place] [address], [address] [place] [address]- Care Team Providers Care Employment Instructional Associate Name Role Phone Not on Staff, PCP Primary Care Physician Unavail able [place] [facility] [place] [id number] Date(s): 03/22/23 - 05/08/23 [facility] [address] [facility], [address] [place] [address]- Attending Physician: Not on Staff, Attending MD Referring Physician: Kumar LEVI, Anna Mera Allergies, Adverse Reactions, Alerts No Known Allergies Medications Albuterol (Eqv-ProAir HFA) 90 mcg/inh inhalation aerosol 2 puffs, Inhalation, Every 6 hours, # 8.5 Gm, 1 Refills, Maintenance, 04/17/23 11:11:00 EDT, [id number], Partial fill upon patient request if the prescription is for a schedule II opioid drug., 2 puffs Inhalation Every 6 hours, 167.6, cm, 2... Start Date: 04/17/23 Status: Ordered MiraLax oral [...] drug. Start Date: 03/11/23 Status: Ordered Unisom 25 mg oral tablet 1 tablet = 25 mg, By Mouth, Daily, 0 Refills, Maintenance, 03/11/23 11:33:00 EDT, Partial fill uponpatient request if the prescription is for a schedule II opioid drug. Start Date: 03/11/23 Status: Ordered Vitamin B6 25 mg oral tablet 1 tablet = 25 mg, By Mouth, Daily, 0 Refills, Maintenance, 03/11/23 11:33:00 EDT, Partial fill uponpatient request if the prescription is for a schedule II opioid drug. Start Date: 03/11/23 Status: Ordered Problem List Condition Confirmation Course Effective Dates Status H ealth Status Informant History of prior with IUGR Confirmed Active Mild intermittent asthma Confirmed Active Obese class I Confirmed Active Sterilization consult Confirmed Active Social History Social History Type Response Smoking Status Never (less than 100 in lifetime) entered on: 03/11/23 Sex Patient Care team information Care Team Personnel Name: Not on Staff, PCP Position: S Physician (General Medicine) Member Role: PCP Care Team Related Persons Name: RAEGANPRADIP Address: home [address] [place] [id number]
--- OUTSIDE RECORDS SUMMARY | 2024-04-03 11:19 | XMS_ITS | Continuity of Care Document ---
Author Organization [facility] Address [address] [place] [id number]- Care Team Providers Care Applications Packager Name Role Phone Not on Staff, PCP Primary Care Physician Unavail able Encounter [facility] Date(s): 02/05/23 - 03/07/[facility] [address] [place] [id number] Patient Care team information Care Team Personnel Name: Not on Staff, PCP Position: [facility] Physician (General Medicine) Member Role: PCP Care Team Related Persons Name: RAEGAN PRADIP Address: home [address] [place] [id number]
--- OUTSIDE RECORDS SUMMARY | 2024-04-03 11:19 | XMS_ITS | Continuity of Care Document ---
Author Organization [facility] Address [address] [place] [address], [address] [place] [address]- Care Team Providers Care Chemical Processing Equipment Repairer Name Role Phone Not on Staff, PCP Primary Care Physician Unavail able Encounter [facility] Date(s): 05/28/23 - 09/25[facility] [address] [facility], [address]th [place] [address]- Attending Physician: aJred LEVI [OB], Sasha Reyes Allergies, Adverse Reactions, Alerts No Known Allergies Immunizations Given and Recorded Vaccine Date Status Refusal Reason influenza virus vaccine, inactivated 1 07/29/23 Gi lilliam tetanus/diphtheria/pertussis, acel(Tdap) 05/20/23 Given 1Result Comment: [07/29/2023] [id number] Medications Albuterol (Eqv-ProAir HFA) 90 mcg/inh inhalation aerosol 2 puffs, Inhalation, Every 6 hours, # 8.5 Gm, 1 Refills, Maintenance, 04/17/23 11:11:00 EDT, [facility]/pharmacy #[id number], Partial fill upon patient request if the prescription is for a schedule II opioid drug., 2 puffs Inhalation Every 6 hours, 167.6, cm, 02/26... Start Date: 04/17/23 Status: Ordered Colace sodium 100 mg oral capsule 100 mg, 1, capsule, By Mouth, 2 times a day, PRN, # 28 capsule, Refills 1, Tot. Refills 1, Maintenance, for constipation, 08/10/23 15:32:00 EDT, Route to Pharmacy Electronically, [facility]/pharmacy #[id number], Partial fill upon patient request if the prescriptio... Start Date: 08/10/23 Status: Ordered etonogestrel 68 mg subcutaneous implant 1 each = 68 mg, Intradermal, call center operator to Procedure, 0 Refills, Maintenance, 08/10/23 15:37:00 EDT, Implant, Partial fill upon patient request if the prescription is for a schedule II opioid drug. Start Date: 08/10/23 Status: Ordered ferrous sulfate 325 mg oral tablet 1 tablet = 325 mg, By Mouth, 2 times a day, # 60 tablet, 1 Refills, Maintenance, 08/10/23 15:32:00 EDT, Tablet, [facility]/pharmacy #[id number], Partial fill upon patient request if the prescription is for a schedule II opioid drug., 168, cm, 08/10/23 9:26:00 EDT,... Start Date: 08/10/23 Status: Ordered PNV Plus By Mouth, Daily, [...] Confirmed Active Obese class I Confirmed Active Nexplanon in place - inserted 08/10/23 Confirmed Active Social History Social History Type Response Smoking Status Never (less than 100 in lifetime) entered on: 03/11/23 Sex Patient Care team information Care Team Personnel Name: Not on Staff, PCP Position: S Physician (General Medicine) Member Role: PCP Care Team Related Persons Name: PRADIP BARROW Address: [place] Address: home [address] [place] [phone] [place] Name: PRADIP CARLIN Address: home [address] [place] [phone]
--- OUTSIDE RECORDS SUMMARY | 2024-04-03 11:19 | XMS_ITS | Continuity of Care Document ---
Author Organization [facility] ter Address [address] [place] [id number]- Care Team Providers Care Clerk Operator Name Role Phone Not on Staff, PCP Primary Care Physician Unavail able Encounter [facility] [place] Date(s): 08/08/23 - 08/10/[address] [address]- Discharge Disposition: A-D/C Home Attending Physician: Shannan Bishop MD Admitting Physician: Shannan Bishop MD Referring Physician: Shannan Bishop MD Allergies, Adverse Reactions, Alerts No Known Allergies Immunizations Given and Recorded Vaccine Date Status Refusal Reason influenza virus vaccine, inactivated 1 07/29/23 Gi lilliam tetanus/diphtheria/pertussis, acel(Tdap) 05/20/23 Given 1Result Comment: [07/29/2023] [id number] Medications acetaminophen 500 mg oral capsule 2 capsule = 1,000 mg, By Mouth, 4 times a day, PRN for pain, not to exceed 4000 mg/day of acetaminophen from all sources, # 40 capsule, 1 Refills, Acute 08/11/23 15:32:00 EDT, 08/10/23 15:32:00 EDT, Capsule, [id number], Partial fill upon patie... Start Date: 08/10/23 Stop Date: 08/11/23 Status: Ordered Acetaminophen Tablet 650 mg, Tablet, By Mouth, Every 4 hours, PRN for Pain , Mild, (1-3), may give 325mg per patient preference and re-dose with 325mg within 4 hours, if needed. Patient should only receive a total of 650mg of Acetaminophen every 4 hours., Routine, 08/09... Start Date: 08/09/23 Stop Date: 08/11/23 Status: Discontinued Albuterol (Eqv-ProAir HFA) 90 mcg/inh inhalation aerosol 2 puffs, Inhalation, Every 6 hours, # 8.5 Gm, 1 Refills, Maintenance, 04/17/23 11:11:00 EDT, [facility]/pharmacy #[id number], Partial fill upon patient request if the prescription is for a schedule II opioid drug., 2 puffs Inhalation Every 6 hours, 167.6, cm, 05/2... Start Date: 04/17/23 Status: Ordered Colace sodium 100 mg oral capsule 100 mg, 1, capsule, By Mouth, 2 times a day, PRN, # 28 capsule, Refills 1, Tot. Refills 1, Maintenance, for constipation, 08/10/23 15:32:00 EDT, Route to Pharmacy Electronically, [facility]/pharmacy #[id number], Partial fill upon patient request if the prescriptio... Start Date: 08/10/23 Status: Ordered etonogestrel 68 mg subcutaneous implant 1 each = 68 mg, Intradermal, on call pharmacy technician to Procedure, 0 Refills, Maintenance, 08/10/23 15:37:00 EDT, Implant, Partial fill upon patient request if the prescription is for a schedule II opioid drug. Start Date: 08/10/23 Status: Ordered ferrous sulfate 325 mg oral tablet 1 tablet = 325 mg, By Mouth, 2 times a day, # 60 tablet, 1 Refills, Maintenance, 08/10/23 15:32:00 EDT, Tablet, [id number], Partial fill upon patient request if the prescription is for a schedule II opioid drug., 168, cm, 08/10/23 9:26:00 EDT,... Start Date: 08/10/23 Status: Ordered ibuprofen 600 mg oral tablet 600 mg, 1, tablet, By Mouth, 4 times a day, # 56 tablet, Refills 1, Tot. Refills 1, Acute 08/11/23 15:33:00 EDT, 08/10/23 15:32:00 EDT, Route to Pharmacy Electronically, [id number], Partial fill upon patient request if the prescription is for... Start Date: 08/10/23 Stop Date: 08/11/23 Status: Ordered PNV Plus By Mouth, Daily, 0 Refills, Maintenance, 05/15/23 11:31:00 EDT, Partial fill upon patient request if the prescription is for a schedule II opioid drug. Start Date: 03/11/23 Status: Ordered Problem List Condition Confirmation Course Effective Dates Status Health St atus Informant Grief reaction Confirmed Active History of prior with IUGR Confirmed Active Mild intermittent asthma Confirmed Active Obese class I Confirmed Active Nexplanon in place - inserted 08/10/23 Confirmed Active Vital Signs Most recent to oldest [Reference Range]: 1 2 3 Height 168 cm (08/10/23 4:21 PM) 168 cm (08/10/23 8:26 AM) 168 cm (08/10/23 12:00 AM) Weight 96.5 kg (08/08/23 9:54 PM) Oxygen Saturation [94-100 %] 98 % (08/10/23 4:21 PM) 98 % (08/10/23 8:26 AM) 98 % (08/10/23 12:00 AM) Pulse Rate [55-90 bpm] 85 bpm (08/10/23 4:21 PM) 85 bpm (08/10/23 8:26 AM) 65 bpm (08/10/23 12:00 AM) Body Mass Index [18.5-24.99 kg/m2] 34.19 kg/m2 *>HHI* (08/08/23 9:54 PM) Blood Pressure [90-138/55-84 mm Hg] 107/68mm Hg (08/10/23 4:21 PM) 107/70mm Hg (08/10/23 8:26 AM) 96/50mm Hg (08/10/23 12:00 AM) Respiratory Rate [16-30 br/min] 19 br/min (08/10/23 4:21 PM) 19 br/min (08/10/23 8:26 AM) 20 br/min (08/10/23 1:35 AM) Temperature [96.8-100.4 DegF] 98.4 DegF (08/10/23 4:21 PM) 98.3 DegF (08/10/23 8:26 AM) 97.7 DegF (08/10/23 12:00 AM) Mode of Delivery (Oxygen) Room air (08/10/23 4:21 PM) Room air (08/10/23 8:26 AM) Room air (08/10/23 12:00 AM) Blood pressure sites Arm, left (08/10/23 4:21 PM) Arm, right (08/10/23 8:26 AM) Arm, right (08/10/23 12:00 AM) Temperature Route Oral (08/10/23 4:21 PM) Oral (08/10/23 8:26 AM) Oral (08/10/23 12:00 AM) Dry Weight 96.5 kg (08/08/23 9:54 PM) Social History Social History Type Response Smoking Status Never (less than 100 in lifetime) entered on: 03/11/23 Sex History and physical note * Jocelyn Nam MD: PERFORM Event Display: History and Physical Hospital Authored Date: Patient: ??CLAUDIO GAINES ? Age:??32 Years?Sex:??Female?:??1990?? OB Reason for Admission OB Reason for Admission Reason for admission: Induction of labor Reason for Induction: Oligohydramnios LMP/EGA/BEATRIZ Gestational Age (EGA) and BEATRIZ? * Note: EGA calculated as of 08/08/2023 ?? BEATRIZ:??08/17/2023?EGA*:??38 weeks 5 days ? History?(2,0,0,2)?Method:??Ultrasound??(01/28/2023) History of Present Illness Fransisca Gaines is a 32 yo @ 38 weeks + 5 days, GBS(-), Rh(+), rubella immune, admittedfor IOL for oligohydramnios diagnosed on ultrasound today 08/08. has been complicated by a history of two prior pregnancies with FGR and mild intermittent asthma, well-controlled. Most recent EFW for this in 33rd %tile. ?? OB Hx: G1: @ term, FGR G2: @ term, FGR G3: current ?? PMH: Asthma (mild intermittent), last used her inhaler 6 mos ago Surg Hx: none Meds: Albuterol, PNV, Unisom Allergies: NKDA Review of Systems Denies contractions, leakage of fluid, vaginal bleeding. Endorses good movement. Denies headache, changes in vision, chest pain, shortness of breath, nausea, vomiting, RUQ pain, dysuria, edema.?? Physical Exam Vitals & Measurements T:??98.3?F?? HR:??104??(Peripheral)?? RR:??19?? BP:??108/75?? HT:??168??cm?? WT:??96.5??kg?? BMI:??34.19?? Constitutional:??Patient is laying supine in no acute distress. Pulmonary:??No signs of respiratory distress. Cardiovascular:??No signs of fluid overload. Abdominal:??Soft, gravid, non-tender. Gynecologic:??Normal vulva without lesions. Extremities:??No peripheral edema. No calf asymmetry or tenderness. Skin:??No rash or jaundice. Normal for ethnicity. Neurological/Psychiatric:??Appearance appropriate, mood and affect stable. ?? Sterile Vaginal Exam:??60/-2 ?? Presentation: VTX by bedside U/S EFW: 3100 g Membrane Status:??intact FHT: Baseline 130 / moderate variability / +acels ??/ no decelerations OB Assessment Cervical Cervical Dilatation3 cm Cervical Emgprrxdqy26% Station-2 Assessment/Plan Assessment:??Fransisca Gaines is a 32 yo @ 38 weeks + 5 days, GBS(-), Rh(+), rubella immune, admitted for IOL for new diagnosis of oligohydramnios today 08/08. SVE 60/-2 on admission. VTX by bedside ultrasound. FHT Cat I. Plan for IOL with pitocin, and AROM when appropriate. Patient desires epidural eventually. Patient discussed with Dr. Bishop, attending physician. LDRP team aware. ?? Encounter for induction of labor (Z34.90):? - FHT reactive - PPH Risk Assessment: Low - U/S confirms VTX - GBS neg - Plan for: Induction: Pitocin - Continuous EFM and toco - Labor coping: epidural eventually - Regular maternal diet - Re-eval in 2 hrs or PRN ?? plans: - Expected sex: male ( ) Desires circumcision ( ) ( ) PPBC: Nexplanon ?? Mild intermittent asthma (J45.20):? -Avoid hemabate -albuterol inhaler ordered ?? History of prior with IUGR (Z87.59):? -Both children <2500 grams at 40 and 41 weeks -Growth scan 07/29 with EFW of 6 lb 7 oz?(33 %tile) ?? Grief reaction (F43.21):? Her father 06/05/23 after being hit by a car. Has support from ?? Jocelyn Nam MD PGY1 OB History History?(2,0,0,2)? # 1 ?Baby 1 ?Outcome Date:??06/30/2018?Outcome or Result:??Vaginal ?Gest Age:??Fullterm ? Outcome:??Live ? Sex:??Female ?? # 2 ?Baby 1 ?Outcome Date:??04/09/2020?Outcome or Result:??Vaginal ?Gest Age:??Fullterm ? Outcome:??Live ? Sex:??Female Labs Labs Labs & Tests ABO: B (03/20/23) Antibody Screen: Negative (03/20/23) Down Syndrome Age Risk FTS: Age Risk: (02/05/23) Down Syndrome Scrn Risk FTS: Screening Risk: (02/05/23) Glucose 50 Gm, +60 Minutes: 123 mg/dL (05/20/23) Hct:??34.4 %??Low (05/20/23) Hepatitis B Surface Antigen: NEGATIVE (03/20/23) Hepatitis C Ab: NEGATIVE (03/20/23) Hgb:??11.1 Gm/dL??Low (05/20/23) HIV 4th Generation Ab-Ag Result: NEGATIVE (03/20/23) RH Test Only: Positive (03/20/23) RPR Titer Result: NOT INDICATED (05/20/23) Rubella IgG Ab: POSITIVE (03/20/23) Syphilis Screen by LEONEL: NEGATIVE (05/20/23) Trisomy 18 Scrn Risk FTS: Screening Risk: (02/05/23) Urine Culture: Urine Culture (07/03/23) Problem List Active Active Problem List Grief reaction: (Medical) History of prior with IUGR : (Medical) Mild intermittent asthma: (Medical) Obese class I: (Medical) : (Obstetric) (11/02/22) Procedure/Surgical History Carmichaels tooth: 2019 Home Medications Albuterol: 2 puffs, Inhalation, Every 6 hours Doxylamine: 25 mg, By Mouth, Daily Multivitamin, : By Mouth, Daily Polyethylene Glycol 3350: 17 Gm, By Mouth, Daily, dissolve in water before taking Pyridoxine: Daily Allergies NKA Social History Alcohol Use: Never. Electronic Cigarette/Vaping Electronic Cigarette Use: Never. 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 Exercise Self assessment: Fair condition. Home/Environment Living situation: Home/Independent. Lives with: Children, Spouse. Other: DOG. Nutrition/Health Diet: Regular. Sexual Sexually involved in last 6 months: Yes. Gender identity: Identifies as female. Self described orientation: Choose not to disclose. Preferred pronoun: She/her. Substance Abuse Use: Past. Type: Marijuana. Tobacco Use: Never (less than 100 in lifetime). Family History Pat. Grandmother: Liver disease Plan No Data Found Hospital Progress note * Jackelyn Ramirez RN: PERFORM, SIGN, VERIFY Event Display: Progress Note Hospital Authored Date: [id number] Patient: CLAUDIO GAINES Age: 32 years Sex: Female : 1990 Associated Diagnoses: None Author: Jackelyn Ramirez RN Findings Problem Related to Alteration in Comfort 08/10/2023 16:00 EDT Alteration in Comfort Related to Other: vag delivery Goals & Outcomes: Comfort Pt will report acceptable level of comfort & pain control, Pt will state importance of adhering to pain strategy regime, Pt will demonstrate necessary skills to manage pain Interventions Implemented: Comfort Assess pain using appropriate pain scale/tools Goals/Interventions, Comfort Yes Comfort, Problem Start 08/09/2023 20:55 Reviewed plan with, Comfort Patient Patient Progression, Comfort Resolved problem Comfort, Problem Ongoing Yes Comfort, Problem Resolved 08/10/2023 16:32 . Evaluation Pt is alert and oriented times three. Pleasant and co-operative. Lung sounds are clear. Abd is soft, fundus is firm, down, and mild flow. Positive pedal pulses and cms. Traced edema bilateral lower extremties. Reviewed discharge paperwork with the pt and she verbalized understanding. Hug tag and bads verified and removed per unit protocol. Pt discharged home with in car seat.. * Susana Mcdowell RN: PERFORM, SIGN, VERIFY Event Display: Progress Note Hospital Authored Date: Patient: CLAUDIO GAINES Age: 32 years Sex: Female : 1990 Associated Diagnoses: None Author: Susana Mcdowell RN Pt A&Ox3, VSS, tolerating diet with no reported N/V. She denies any SOB, dizziness, chest pain - c/o cramping/perineal discomfort, Tylenol and Motrin have been effective. Fundus is down and firm,mild rubra lochia. Pt is ambulating independently, voiding and passing flatus without difficulty. is rooming in with pt, there is no support person at the bedside, pt has been encouraged to use her call snyder for any needs and placed within reach. Findings Problem Related to Alteration in Comfort : Alteration in Comfort/new 08/09/2023 20:00 EDT Alteration in Comfort Related to Other: vag delivery Goals & Outcomes: Comfort Pt will report acceptable level of comfort & pain control, Pt will state importance of adhering to pain strategy regime, Pt will demonstrate necessary skills to manage pain Interventions Implemented: Comfort Assess pain using appropriate pain scale/tools, Assess aggravating factors & prevent them accordingly, Assess alleviating factors & promote them accordingly BH Goals/Interventions, Comfort Yes Comfort, Problem Start 08/09/2023 20:55 Reviewed plan with, Comfort Patient Patient Progression, Comfort Plan Initiation Comfort, Problem Ongoing Yes . * Jocelyn Nam MD: PERFORM Event Display: Progress Note Hospital Authored Date: Patient: ??ESTEBAN, CLAUDIO ? Age:??32 Years?Sex:??Female?:??1990?? LMP/EGA/BEATRIZ Gestational Age (EGA) and BEATRIZ? * Note: EGA calculated as of 08/09/2023 ?? BEATRIZ:??08/17/2023?EGA*:??38 weeks 6 days ? History?(2,0,0,2)?Method:??Ultrasound??(01/28/2023) Subjective In to recheck patient. Patient found to be 7/90/0. Patient stating that she is involuntarily bearing down. Patient counseled to try to not push, continue breathing through contractions. OB Assessment Baby A Baseline:130 Baseline Description:Normal, 110-160 bpm Baseline Variability:Moderate variability Accelerations:Present Deceleration:None Activity:Present Uterine Number of Contractions per 10 minutes3 Monitor Mode, UterineExternal Cervical Cervical Dilatation7 cm Cervical Exvfxumlfj42% Station-2 Physical Exam Vitals & Measurements T:??98.3?F?? HR:??88??(Monitored)?? RR:??19?? BP:??125/65?? SpO2:??99%?? HT:??168??cm?? WT:??96.5??kg?? BMI:??34.19?? Assessment/Plan Assessment:??Fransisca Gaines is a 32 yo @ 38 weeks +??6 days admitted for IOL oligo. Now 7cm, in active stage of labor. Continue Pitocin per protocol. Evaluate q1hr or PRN. ?? Encounter for induction of labor (Z34.90):? - PPH Risk Assessment: Low - Plan for: Induction: Pitocin - Continuous EFM and toco - Labor coping: epidural ?? plans: - Expected sex: male ( ) Desires circumcision ( ) ( ) PPBC: Nexplanon ?? Mild intermittent asthma (J45.20):? -Avoid hemabate -albuterol inhaler ordered ?? History of prior with IUGR (Z87.59):? -Both children <2500 grams at 40 and 41 weeks -Growth scan 07/29 with EFW of 6 lb 7 oz?(33 %tile) ?? Grief reaction (F43.21):? Her father 06/05/23 after being hit by a car. Has support from ?? OB History History?(2,0,0,2)? # 1 ?Baby 1 ?Outcome Date:??06/30/2018?Outcome or Result:??Vaginal ?Gest Age:??Fullterm ? Outcome:??Live ? Sex:??Female ?? # 2 ?Baby 1 ?Outcome Date:??04/09/2020?Outcome or Result:??Vaginal ?Gest Age:??Fullterm ? Outcome:??Live ? Sex:??Female Active Problem List Active Problem List Grief reaction: (Medical) History of prior with IUGR : (Medical) Mild intermittent asthma: (Medical) Obese class I: (Medical) : (Obstetric) (11/02/22) Medications Medications (6) Active SCHEDULED: (0) CONTINUOUS: (2) Lactated Ringers (1000 mL) Cont IV 1,000 mL (Lactated Ringers 1,000 mL) ??1,000 mL, IV Infusion, 125 mL/hr Oxytocin 30 units / 500 mL IV Premix 30 units (Oxytocin 30 units in 500 mL Premix IV 30 units) ??30units 500 mL, IV Infusion, 2 mL/hr PRN: (4) Albuterol 90mcg/Inhalation Inhaler HFA (albuterol CFC free 90 mcg/inh inhalation aerosol) ??180 mcg2 puffs, Inhalation, Every 4 hours Calcium Carbonate 500 mg (Calcium 200 mg) Chewable Tablet (Tums 500 mg Tablet) ??1,000 mg 2 tablet,Chew, 3 times a day Famotidine 10 mg/mL Inj (Famotidine Inj) ??20 mg 2 mL, IV Push Slowly, Once Ondansetron 2mg/mL Inj (2mL Vial) (Ondansetron Inj) ??4 mg, IV Push, Every 8 hours Note * Jackelyn Ramirez RN: PERFORM Event Display: Discharge/Transfer Note Hospital Authored Date: [id number] Nursing Discharge Note Entered On: 08/10/2023 16:35 EDT Performed On: 08/10/2023 16:35 EDT by Jackelyn Ramirez RN Nursing Discharge Note 2 Discharge Time : 08/10/2023 16:30 EDT Discharge Level of Care at Discharge : Home/[facility] Patient Left Unit Via : Ambulatory Patient Accompanied Off Unit with : Significant other DC Instructions Provided & Signed by Pt : Yes Patient Understands D/C Instructions : Yes Patient Instructions Discharge Signed : Yes Did Pt have Specialty Bed or Wound Vac : No Jackelyn Ramirez RN - 08/10/2023 16:35 EDT * Fili Mensah MD: PERFORM, MODIFY Event Display: Discharge/Transfer Note Hospital Authored Date: [id number] Patient: ??GAINES, HELENGEORGINA ? Age:??32 Years?Sex:??Female?:??1990?? Admit Date Admission Date: 08/08/2023 Discharge Date 08/10/2023 OB Reason for Admission OB Reason for Admission Reason for admission: Induction of labor Reason for Induction: Oligohydramnios Hospital Course Vaginal delivery 08/09/2023. Uneventful recovery. Nexplanon inserted 08/10/2023. ?? PROBLEM LIST: Grief reaction History of prior with IUGR Mild intermittent asthma Obese class I ?? SUBJECTIVE: Tolerating PO.?? Ambulating.?? Lochia < menses. Pain adequately controlled No nausea or vomiting.?? Voiding without difficulty She requests discharge home today ?? Breast-feeding exclusively? control plan is: Nexplanon (etonogestrel subdermal implant). ?? Baby boy - circumcision is??planned.??The patient was counseled regarding circumcision for her son.She was informed that this is to be considered as an elective procedure with no significant benefits for the . She was counseled that there are risks including but not limited to: bleeding, infe ction, injury to the penis, poor cosmetic outcome, possible need for revision. Circumcision consentform reviewed and signed after all questions answered. Circumcision was subsequently done for her son. ?? Objective/Physical Exam on Day of Discharge Vitals & Measurements T:??98.3?F?? HR:??85??(Peripheral)?? RR:??19?? BP:??107/70?? SpO2:??98%?? HT:??168??cm?? WT:??96.5??kg?? BMI:??34.19?? OBJECTIVE: Rh positive ?? Rubella immune ? General impression: No acute distress ?? Abdomen: Soft, appropriately tender, nondistended. Fundus firm < umbilicus Assessment/Plan/Discharge Diagnosis day #??1 from a vaginal delivery. Doing well.? Continue current care.? Meeting all necessary discharge milestones. Plan for discharge home today. Discharge instructions and return precautions discussed. ?? [x] Discharge prescriptions written [x] Discharge medication reconciliation done [x] Discharge order entered [x] Patient instructed to call to arrange follow up in the office Future Appointments Saturday 4:00 PM EDT ?? With: Jared LEVI [OB]Sasha Where: [facility] [place] RN [address] [place] [id number]- Status: Pending Saturday 4:20 PM EDT ?? With: Felipe LEVI, Namrata Mera Where: [facility] PER DIEM RN [address] [place] [address]- Status: Pending Saturday 4:20 PM EDT ?? With: Jared LEVI [OB]Sasha Where: [facility] PER DIEM RN [address] [place] [id number]- Status: Pending Delivery Summary Delivery Summary Maternal Information ??Labor Information ?Baby A ?Labor Onset Methods: ??Induced ?Induction Methods: ??Pitocin ??Delivery Information ?Gestational Age at Delivery: ??38W 6D ?Anesthesia OB: ??Epidural ??08/09/23 08:13:25, Epidural ??08/09/23 04:39:37 ?Obstetrical Laceration: ??Periurethral laceration ?Periurethral Laceration: ??Right ?Periurethral Laceration Repair: ??Not repaired ?Anesthesia for Repair: ??None ?Delivery Complications: ??None ?Blood Loss(ml): ??200 mL ? Baby A ??Delivery Information ?Delivery Type: ??Vaginal ?Date, Time of : ??08/09/23 06:07:00 ? Position: ??Supine ?Foot of bed removed: ??Yes ?Delayed Cord Clamping: ??Yes ?Placenta Delivery Date/Time: ??08/09/23 06:18:00 ?Placenta Delivery Method: ??Manual ?Placenta Appearance: ??Calcified ?Placenta to Pathology: ??Yes ??Care Team ?Attending Provider: ??Serjio Horne DO ?Delivery Physician: ??Viv LEVI, Jocelyn ?psychiatric nursing assistant #1: ??Morena MUÑOZ, Melissa ?psychiatric nursing assistant #2: ??Fili MUÑOZ, Shelby ?Product Development Intern: ??Jillian Downing DO ?Anesthesiology Attending: ??Shanna LEVI, Gabriel Bond ??Labor Information ?2nd Stage, Length of Labor: ??20 min ? monitoring: ??External monitor ?? Information ? Outcome: ??Live ? Position: ??Left occiput anterior ? Weight: ??3.184 kg ? Score 1 minute: ??8 ? Score 5 minute: ??9 ? Score 10 minute: ??9 ?Transferred To: ?? Care area with Family ?Umbilical Cord Description: ??3 vessel cord ? Complications: ??None ?Gender: ??Male ? Procedures Performed Vaginal delivery ? Discharge Medications ???Acetaminophen (acetaminophen 500 mg oral capsule)???Albuterol (Albuterol (Eqv-ProAir HFA) 90 mcg/inh inhalation aerosol)???Docusate (Colace sodium 100 mg oral capsule)???Etonogestrel ([id number] mg subcutaneous implant)???Ferrous Sulfate (ferrous sulfate 325 mg oral tablet)???Ibuprofen (ibuprofen 600 mg oral tablet)???Multivitamin, (PNV Plus) Stop taking these medications ???Doxylamine (Unisom)???Polyethylene Glycol 3350 (MiraLax oral powder for reconstitution)???Pyridoxine (Vitamin B6) Immunizations during Hospitalization Vaccine Date Status influenza virus vaccine, inactivated 07/29/2023 Given Comments : [07/29/2023] [id number] tetanus/diphtheria/pertussis, acel(Tdap) 05/20/2023 Given Contraception Nexplanon ? Feeding Method No Results Patient Education Titles OB PP [facility]- Discharge Instructions?? Follow-Up Appointments Added Follow Up ?Time Frame ?Comments [facility] [phone]?4 to 5 weeks * Jackelyn Ramirez RN: PERFORM Event Display: Patient Education/Instruction Authored Date: [id number] Inpatient Adult Discharge Instructions [address] [address] Name: CLAUDIO GAINES : 1990 Visit: 08/08/2023 21:28:00 Current Date: 08/10/2023 15:51 Account: [id number] Inpatient Adult Discharge Instructions We would like to thank you for allowing us to assist you with your healthcare needs. The following includes patient education materials and information regarding your injury/illness. Our entire staffstrives to provide an excellent experience for our patients and their families. PLEASE ENSURE YOU FOLLOW-UP PER THE INSTRUCTIONS BELOW! ?? YOUR OPINION IS IMPORTANT TO US! Please complete the survey you may receive by mail or email. Your feedback will be used to make improvements to the healthcare experiences of our patients and their families. Surveys are administered by [employer] ?? If further treatment with your primary care physician or another doctor is recommended, it is important for you to keep the appointment. Call your primary care physician or return to the Emergency Department immediately if your condition worsens, fails to improve, or new symptoms develop. If you need to find a doctor, you can call [facility] for a referral at [phone] or toll free at [phone]) or log in to [email or web address].. ?? [facility], in keeping with [facility] guidance, no longer requires face masks for staff, patientsor visitors in most situations. Similiar to time spent indoors at other locations, there is the chance that you were exposed to repiratory viruses during your time with us (such as flu or COVID-19). If you develop symptoms concerning for a viral respiratory infection, please seek testing (and treatment if indicated) from your medical provider or home test kit. ?? You can view and manage your care through the patient portal or by using a health care gabriela of your choosing. [employer] is a website that allows you to securely view your medical information including your hospital discharge summary, office visit summaries, medications and follow-up visits. You can also request appointments, renew medications, and request access to your medical information using a health care gabriela of your choosing, or just ask a question. You can enroll at [email or web address] or register during your next office visit. You have been discharged from [facility], Patient Care Unit: WIN2. If you have any questions regarding these instructions after you leave, please call us and we will be happy to assist you. [facility] Your Care Team Attending Physician Dario LEVI, Shannan Consulting Providers Viv LEVI, Jocelyn Discharging Providers Rodrick LEVI, Fili Mcclellan Reason for Admission Induction of labor Your Diagnosis Mild intermittent asthma History of prior with IUGR Grief reaction Encounter for induction of labor Tests Performed Below is a partial list of the tests performed during your hospitalization. You may have had other tests and procedures not included in this list. Please discuss all test results with your provider. CBC Primary Care Provider Not on Staff, PCP Advance Directive Health Care Proxy on File No Discharge Vitals Temperature: 98.3 DegF Height: 168 cm Pulse Rate: 85 bpm Weight: 96.5 kg Respiratory Rate: 19 br/min Body Mass Index:??34.19 kg/m2??Critical Systolic Blood Pressure: 107 mm Hg Body surface area: 2.12 Diastolic Blood Pressure: 70 mm Hg ?? Oxygen Saturation: 98 % ?? Studies Pending All tests and labs ordered during this hospital stay have been completed unless listed below. Please discuss all pending results with your provider listed above in these instructions. ?? Hold Lavender Tube (BB) Pathology Tissue Request () What to do next Instructions From Your Doctor Discharge Orders Scheduled Follow-Up Appointments Saturday 4:00 PM EDT ?? With: Jared LEVI [OB]Sasha Where: [facility] [place] [address] [place] [phone]- Status: Pending Saturday 4:20 PM EDT ?? With: Namrata Wang MD Where: [facility] [place] RN [address] [place] [phone]- Status: Pending Saturday 4:20 PM EDT ?? With: Jared LEVI [OB]Sasha Where: [facility] PER DIEM RN [address] [place] [phone]- Status: Pending You Need to Schedule the Following Appointments Follow Up with??[facility] [phone] When:??Within 4 to 5 weeks Discharge Medications CLAUDIO GAINES :1990 Visit Date:08/08/2023 Medications: Please continue your medications until treatment is completed or stopped by your provider. Medications not listed below should be discontinued. Discuss any questions related to medications with your provider. What How Much When Why Instructions Next Dose New Acetaminophen (acetaminophen 500 mg oral capsule) 2 capsule Oral 4 times a day as needed for for pain Refills: 1 not to exceed 4000 mg/ day of acetaminophen from all sources ?? Pickup at [facility]/pharmacy #2070 530pm New Docusate (Colace sodium 100 mg oral capsule) 1 capsule Oral Twice a day as needed for for constipation Refills: 1 Pickup at [facility]/pharmacy #2070 tonight New Etonogestrel (etonogestrel 68 mg subcutaneous implant) 1 Each Intradermal on call pharmacy technician to Procedure put in 08/10/2023 New Ferrous Sulfate (ferrous sulfate 325 mg oral tablet) 1 tab(s) Oral Twice a day Refills: 1 Pickup at [facility]/pharmacy #2070 tonight New Ibuprofen (ibuprofen 600 mg oral tablet) 1 tab(s) Oral 4 times a day Refills: 1 Pickup at [facility]/pharmacy #2070 anytime Unchanged Albuterol (Albuterol (Eqv-ProAir HFA) 90 mcg/ inh inhalation aerosol) 2 puff(s) Inhalation Every 6 hours Mild intermittent asthma Unchanged Multivitamin, (PNV Plus) Oral Daily Pharmacy Information [facility]/pharmacy #2070: [address] [place], [place] [phone] ?? What How Much When Comments Stop Taking Doxylamine (Unisom) 25 Milligram Oral Daily Stop Taking Polyethylene Glycol 3350 (MiraLax oral powder for reconstitution) 17 gram Oral Daily dissolve in water before taking ?? Stop Taking Pyridoxine (Vitamin B6) Daily Test Results Below is a partial list of the most recent Laboratory test results done prior to this discharge. You may have had other tests and procedures not included in this list. Please discuss all test resultswith your provider. CBC (08/08/2023) ???WBC - 7.8 k/mm3???RBC - 4.09 m/mm3???Hgb - 11.4 Gm/dL???Hct - 35.1 %???MCV - 85.8 femtoliters???MCH - 27.9 pg???MCHC - 32.5 g/dL???Platelet Count - 267 k/mm3???RDW-SD - 47.9 femtoliters???MPV - 10.1 femtoliters???Nucleated RBC (Automated) - 0.0 #/100 WBC'S???Abs. NRBC - 0.0 k/mm3 Allergies (NKA means No Known Allergies) NKA Problems Active Problems??(5) Grief reaction?? History of prior with IUGR ?? Mild intermittent asthma?? Obese class I? Education Materials Below is the list of Educational Leaflet Providered with your Discharge Instructions. [facility]- Discharge Instructions?? Valuables and Belongings I fully understand and agree that [facility] accepts no responsibility for all my personal property including clothing, toilet articles, radios, jewelry, dentures, hearing aids, rings, money, or any other property that is in my possession or is brought to me after admission. I understand certain valuables may be placed in a hospital safe for a short period of time. I understand that the hospital is not liable for loss or damage due to accident, fire, or other natural occurrence while said property is in the safe. I accept full responsibility for any personal property that I keep with me, and will not hold the hospital responsible in case of loss or disappearance. I acknowledge that i have been encouraged to send valuables and belongings home. ?? Review of Valuable and Belonging List: With patient Date for Pt to Sign Valuables/Belongings: 08/09/23 07:49:00 ?? Other Discharge Information ? Pulmonary Rehab Status?? Pulmonary Rehab Discharge Status?? Respiratory Rate: 19 br/min ? Common Emergency Awareness Tips IS IT A STROKE? Act FAST and Check for these signs: FACE Does the face look uneven? ARM Does one arm drift down? SPEECH Does their speech sound strange? TIME Call at any sign of stroke ?? Heart Attack Signs Chest discomfort: Most heart attacks involve discomfort in the center of the chest and lasts more than a few minutes, or goes away and comes back. It can feel like uncomfortable pressure, squeezing, fullness or pain. Discomfort in upper body: Symptoms can include pain or discomfort in one or both arms, back, neck, jaw or stomach. Shortness of breath: With or without discomfort. Other signs: Breaking out in a cold sweat, nausea, or lightheaded. Remember, MINUTES DO MATTER. If you experience any of these heart attack warning signs, call to get immediate medical attention! ?? Smoking can increase your chances of developing chronic health problems and can cause harmful effects to other family members in your house. If you smoke, you are strongly encouraged to quit. Please call [facility] BrightTALK Link at [phone] or [phone] or log in to [email or web address] for referrals to smoking cessation programs. ?? 606 Suicide & Crisis Lifeline is available 20/05 if you or someone you know needs to find a reason to keep living. By calling 057 you'll be connected to a skilled, trained counselor at a crisis center in your area. INPATIENT DISCHARGE INSTRUCTIONS SIGNATURE PAGE JOSE C GAINESLEOPOLDOLeonela Location:[facility] Registration Date and Time:08/08/2023 21:28 EDT Primary Care Physician: Not on Staff, PCP Attending Physician: Shannan Bishop MD, I GAINES, HELJEWELL, have received the above patient education materials/instructions and haveverbalized understanding. If ambulance or transport services are being used I further acknowledge being given a choice of service. ?? If you need to contact me, please call me at this number: . Patient/Software Programmer Name: Patient/Software Programmer Signature: Relationship to Patient: Witness Name/Signature: Date: * Jackelyn Ramirez RN: PERFORM Event Display: Patient Education/Instruction Authored Date: [id number] Inpatient Adult Discharge Instructions [address] [address] Name: CLAUDIO GAINES : 1990 Visit: 08/08/2023 21:28:00 Current Date: 08/10/2023 15:50 Account: [id number] Inpatient Adult Discharge Instructions We would like to thank you for allowing us to assist you with your healthcare needs. The following includes patient education materials and information regarding your injury/illness. Our entire staffstrives to provide an excellent experience for our patients and their families. PLEASE ENSURE YOU FOLLOW-UP PER THE INSTRUCTIONS BELOW! ?? YOUR OPINION IS IMPORTANT TO US! Please complete the survey you may receive by mail or email. Your feedback will be used to make improvements to the healthcare experiences of our patients and their families. Surveys are administered by [employer] ?? If further treatment with your primary care physician or another doctor is recommended, it is important for you to keep the appointment. Call your primary care physician or return to the Emergency Department immediately if your condition worsens, fails to improve, or new symptoms develop. If you need to find a doctor, you can call [facility] BrightTALK Link for a referral at [phone] or toll free at [phone] or log in to [email or web address].. ?? [facility], in keeping with [facility] guidance, no longer requires face masks for staff, patientsor visitors in most situations. Similiar to time spent indoors at other locations, there is the chance that you were exposed to repiratory viruses during your time with us (such as flu or COVID-19). If you develop symptoms concerning for a viral respiratory infection, please seek testing (and treatment if indicated) from your medical provider or home test kit. ?? You can view and manage your care through the patient portal or by using a health care gabriela of your choosing. [employer] is a website that allows you to securely view your medical information including your hospital discharge summary, office visit summaries, medications and follow-up visits. You can also request appointments, renew medications, and request access to your medical information using a health care gabriela of your choosing, or just ask a question. You can enroll at [email or web address] or register during your next office visit. You have been discharged from [facility], Patient Care Unit: WIN2. If you have any questions regarding these instructions after you leave, please call us and we will be happy to assist you. [facility] Your Care Team Attending Physician Dario LEVI, Shannan Consulting Providers Viv LEVI, Jocelyn Discharging Providers Rodrick LEVI, Fili Mcclellan Reason for Admission Induction of labor Your Diagnosis Mild intermittent asthma History of prior with IUGR Grief reaction Encounter for induction of labor Tests Performed Below is a partial list of the tests performed during your hospitalization. You may have had other tests and procedures not included in this list. Please discuss all test results with your provider. CBC Primary Care Provider Not on Staff, PCP Advance Directive Health Care Proxy on File No Discharge Vitals Temperature: 98.3 DegF Height: 168 cm Pulse Rate: 85 bpm Weight: 96.5 kg Respiratory Rate: 19 br/min Body Mass Index:??34.19 kg/m2??Critical Systolic Blood Pressure: 107 mm Hg Body surface area: 2.12 Diastolic Blood Pressure: 70 mm Hg ?? Oxygen Saturation: 98 % ?? Studies Pending All tests and labs ordered during this hospital stay have been completed unless listed below. Please discuss all pending results with your provider listed above in these instructions. ?? Hold Lavender Tube (BB) Pathology Tissue Request () What to do next Instructions From Your Doctor Discharge Orders Scheduled Follow-Up Appointments Saturday 4:00 PM EDT ?? With: Jared LEVI [OB]Sasha Where: [facility] PER DIEM RN [address] [place] [phone]- Status: Pending Saturday 4:20 PM EDT ?? With: Namrata Wang MD Where: [facility] PER DIEM RN [address] [place] [address]- Status: Pending Saturday 4:20 PM EDT ?? With: Jared LEVI [OB]Sasha Where: [facility] PER DIEM RN [address] [place] [address]- Status: Pending You Need to Schedule the Following Appointments Follow Up with??[facility] [phone] When:??Within 4 to 5 weeks Discharge Medications CLAUDIO GAINES :1990 Visit Date:08/08/2023 Medications: Please continue your medications until treatment is completed or stopped by your provider. Medications not listed below should be discontinued. Discuss any questions related to medications with your provider. What How Much When Why Instructions Next Dose New Acetaminophen (acetaminophen 500 mg oral capsule) 2 capsule Oral 4 times a day as needed for for pain Refills: 1 not to exceed 4000 mg/ day of acetaminophen from all sources ?? Pickup at [facility]/pharmacy #2071 New Docusate (Colace sodium 100 mg oral capsule) 1 capsule Oral Twice a day as needed for for constipation Refills: 1 Pickup at [facility]/pharmacy #2070 New Etonogestrel (etonogestrel 68 mg subcutaneous implant) 1 Each Intradermal on call pharmacy technician to Procedure New Ferrous Sulfate (ferrous sulfate 325 mg oral tablet) 1 tab(s) Oral Twice a day Refills: 1 Pickup at [facility]/pharmacy #2070 New Ibuprofen (ibuprofen 600 mg oral tablet) 1 tab(s) Oral 4 times a day Refills: 1 Pickup at [facility]/pharmacy #2070 Unchanged Albuterol (Albuterol (Eqv-ProAir HFA) 90 mcg/ inh inhalation aerosol) 2 puff(s) Inhalation Every 6 hours Mild intermittent asthma Unchanged Multivitamin, (PNV Plus) Oral Daily Pharmacy Information [facility]/pharmacy #2070: [address] [place], [place] [phone] ?? What How Much When Comments Stop Taking Doxylamine (Unisom) 25 Milligram Oral Daily Stop Taking Polyethylene Glycol 3350 (MiraLax oral powder for reconstitution) 17 gram Oral Daily dissolve in water before taking ?? Stop Taking Pyridoxine (Vitamin B6) Daily Test Results Below is a partial list of the most recent Laboratory test results done prior to this discharge. You may have had other tests and procedures not included in this list. Please discuss all test resultswith your provider. CBC (08/08/2023) ???WBC - 7.8 k/mm3???RBC - 4.09 m/mm3???Hgb - 11.4 Gm/dL???Hct - 35.1 %???MCV - 85.8 femtoliters???MCH - 27.9 pg???MCHC - 32.5 g/dL???Platelet Count - 267 k/mm3???RDW-SD - 47.9 femtoliters???MPV - 10.1 femtoliters???Nucleated RBC (Automated) - 0.0 #/100 WBC'S???Abs. NRBC - 0.0 k/mm3 Allergies (NKA means No Known Allergies) NKA Problems Active Problems??(5) Grief reaction?? History of prior with IUGR ?? Mild intermittent asthma?? Obese class I? Education Materials Below is the list of Educational Leaflet Providered with your Discharge Instructions. [facility]- Discharge Instructions?? Valuables and Belongings I fully understand and agree that [facility] accepts no responsibility for all my personal property including clothing, toilet articles, radios, jewelry, dentures, hearing aids, rings, money, or any other property that is in my possession or is brought to me after admission. I understand certain valuables may be placed in a hospital safe for a short period of time. I understand that the hospital is not liable for loss or damage due to accident, fire, or other natural occurrence while said property is in the safe. I accept full responsibility for any personal property that I keep with me, and will not hold the hospital responsible in case of loss or disappearance. I acknowledge that i have been encouraged to send valuables and belongings home. ?? Review of Valuable and Belonging List: With patient Date for Pt to Sign Valuables/Belongings: 08/09/23 07:49:00 ?? Other Discharge Information ? Pulmonary Rehab Status?? Pulmonary Rehab Discharge Status?? Respiratory Rate: 19 br/min ? Common Emergency Awareness Tips IS IT A STROKE? Act FAST and Check for these signs: FACE Does the face look uneven? ARM Does one arm drift down? SPEECH Does their speech sound strange? TIME Call at any sign of stroke ?? Heart Attack Signs Chest discomfort: Most heart attacks involve discomfort in the center of the chest and lasts more than a few minutes, or goes away and comes back. It can feel like uncomfortable pressure, squeezing, fullness or pain. Discomfort in upper body: Symptoms can include pain or discomfort in one or both arms, back, neck, jaw or stomach. Shortness of breath: With or without discomfort. Other signs: Breaking out in a cold sweat, nausea, or lightheaded. Remember, MINUTES DO MATTER. If you experience any of these heart attack warning signs, call to get immediate medical attention! ?? Smoking can increase your chances of developing chronic health problems and can cause harmful effects to other family members in your house. If you smoke, you are strongly encouraged to quit. Please call [facility] BrightTALK Link at [phone] or [phone] [place] [address] ([phone]) or log in to [email or web address] for referrals to smoking cessation programs. ?? 154 Suicide & Crisis Lifeline is available 20/05 if you or someone you know needs to find a reason to keep living. By calling 221 you'll be connected to a skilled, trained counselor at a crisis center in your area. INPATIENT DISCHARGE INSTRUCTIONS SIGNATURE PAGE CLAUDIO GAINES Location:[facility] Registration Date and Time:08/08/2023 21:28 EDT Primary Care Physician: Not on Staff, PCP Attending Physician: Dario LEVI, [facility], I CLAUDIO GAINES, have received the above patient education materials/instructions and haveverbalized understanding. If ambulance or transport services are being used I further acknowledge being given a choice of service. ?? If you need to contact me, please call me at this number: . Patient/Software Programmer Name: Patient/Software Programmer Signature: Relationship to Patient: Witness Name/Signature: Date: * Jackelyn Ramirez RN: PERFORM, SIGN, VERIFY Event Display: Patient Education Handout Authored Date: * Jackelyn Ramirez RN: PERFORM Event Display: Patient Education Leaflets Authored Date: OB [facility]- Discharge Instructions ?? 209 Discharge Care Instructions for the New Mom and Baby Please take a few moments to read through these helpful instructions before you leave the hospital.?? Your nurse will be glad to answer any questions you may have.?? You can also find this and more information throughout the purple Becoming a Family booklet, [facility]???s New Beginnings Guide and the Consultation Services Guide given to you after the of your baby.?? You may also phone our nurses stations if you have further questions.?? [facility]:?? First Floor ([phone]), Second Floor ([phone]).?? Please call your provider if you have any questions or concerns?? before your next appointment. For ongoing support please ???Like?? us on our Facebook page ???[facility]???s New Beginnings?? andsign up for our email newsletter at [email or web address].?? News and information will besent to you until your baby???s third birthday. Instructions for the New Mother Activity: For the next 2 weeks at home ??? no heavy lifting, avoid unnecessary stair climbing, and no driving(especially if you are taking medicine that may make you sleepy or feel that you are sleep deprived).?? For the next 4-6 weeks - no tampons, no douches, no sexual intercourse. Use your leon bottle to rinse your perineum until your vaginal flow stops.?? If you have stitches in your bottom, they generally dissolve within 7-10 days.?? Apply Tucks/witch leidy pads until your soreness subsides.?? Use your bathroom at home every 3 to 4 hours, rinse, and change your pads. Warm showers feel great on achy muscles, sore backs and sore bottoms. Exercise: Walking is the best form of exercise.?? Wait until your follow up appointment with your provider in4-6 weeks before engaging in more strenuous activity. Diet: Drink plenty of fluids to avoid constipation and to help support your recovery. Eat plenty of iron rich foods such as red meat, iron fortified cereals like Total and Cream of Wheat, raisins, prunes, greens and spinach.?? These will help to build your blood count back up as all women lose some blood after delivery.?? Also add foods rich in Vitamin C such as strawberries, oranges, papayas, kale and snyder peppers. Continue to take your vitamins if you are .?? If you are not follow the instructions of your provider.?? If you were prescribed iron supplements such as ferrous sulfate, it is important to continue these until your doctor or seafood and service meat manager tells you to stop. Breast Care for Nursing Mothers: Wear a comfortable fitting, supportive nursing bra.?? An underwire bra is not recommended. Express drops of breast milk and rub over your nipples and areola (brown area) before and after each feeding to protect and heal sensitive skin and then air dry your nipples.?? If you are experiencing any soreness, you may purchase nipple cream such as TenderCare or Lansinoh.?? Use it in the following manner:?? finish your feeding or pumping session, self-express colostrum onto your nipple and air dry, apply the nipple cream to the nipple and areola.?? Use only small amounts for best results. If you are having difficulty getting the baby to latch onto the breast due to swelling of the areola, try applying pressure with your fingers for a couple of minutes above and below your nipple and walk your fingers outward softening the area and pushing the swelling away.?? This technique is knownas reverse pressure softening.?? For demonstrations of this and other techniques such as the [place] Hand Expression technique, please refer to the resources section of the Consultation Services Guide that you received from services. When your milk first comes in, usually within 3 to 5 days after delivery, you may experience engorgement.?? Your breasts may become swollen and very tender.?? Cold compresses work great to help with discomfort and reduce swelling. It will get better in a couple of days.?? Continue to nurse your baby frequently.?? Call [facility]???s Consultation Service at [phone], press 1 to schedule an outpatient appointment or press 3 and a it architecture consultant will return your call that day or the next if you call after 3pm. Breast Care for Bottle Feeding Mothers: Engorgement may occur within the first week after delivery.?? Your breasts may become hard and verytender.?? A cool compress of cleaned raw green cabbage leaves applied to the breast and changed as leaves wilt has been proven helpful for many women.?? Ice packs or frozen bags of peas also work nicely to ease the discomfort.?? The soreness will only last a couple of days. Keep your back turned to the water while showering to decrease breast stimulation. Wear a snug fitting bra such as a sports bra. Incision Care Following Tubal or Section: You may shower as directed by your doctor or seafood and service meat manager.?? Pat your incision dry with a clean towel.??You will not need a bandage after the first day. Call your doctor or seafood and service meat manager with any signs of infection such as a hard, hot swollen tender incision, especially if the skin around the incision looks pink or red.?? Yellow drainage with an odor may also be a sign of infection to report. Call your doctor or seafood and service meat manager if the incision begins to separate. If you have steri-strips on the incision, they will likely fall off in the first week.?? If they have not fallen off by 10 days after delivery, you may remove them. Control: Your doctor or seafood and service meat manager will discuss control methods with you when you are discharged from thespital or at your checkup.?? Be sure to let your provider know if you are . You had a Paragard IUD placed on .?? This control method is effective for 10 years. You had a Liletta placed on .?? This control method is effective for up to 5 years. You had a Nexplanon placed on .?? This control method is effective for up to 3 years. You received a Depo Provera injection on .?? This control method is effective as longas you repeat it every 3 months.?? Schedule your next dose before . You have a prescription for control pills .?? It is important to take a pill everyday at around the same time of day for effective control protection.?? Pain Management: Cramping after is common and increases in strength with each baby you have.?? If you experience painful cramps, and have no allergies to acetaminophen (Tylenol) or ibuprofen (Motrin), you may continue to take these medications as you did in the hospital.?? Ibuprofen is also helpful with back aches following epidurals, perineal pain following a vaginal delivery, and moderate incisional pain after a section or a tubal ligation.?? If you experience gas distention, especially after surgery, you may take an over the counter medication called simethicone.?? Take these chewable tablets 4 times a day as needed and directed on the package.?? Keep moving.?? Walking or rocking in a chair, will help to move the gas along.?? Prachi tea made with heated prachi hector (instead of water) and a tea bag, stirred to dissolve carbonation (bubbles) is a helpful drink to soothe a gassy stomach. Warning Signs of a Problem to Notify Your Doctor or Power Superintendent of: Heavy vaginal bleeding ??? which is soaking a pad every hour with bright red blood. Passing blood clots the size of an egg or larger. An incision that is not healing. A temperature greater than or equal to 100.4 especially if accompanied by any of the following symptoms ??? painful, frequent urination; extreme back or flank pain; lower belly pain with a foul smellto your vaginal flow; a red hard hot area on your breast.?? Severe headache that does not go away after taking acetaminophen or ibuprofen.?? A headache that changes your vision, including seeing spots or blurring. Right sided upper abdominal pain along the rib cage area. Pain in your legs that is warm and tender to the touch. depression signs may include ??? loss of interest in your baby, weepiness, difficulty focusing, weight loss with no appetite, exhaustion, feeling overwhelmed or anxious, feelings of despair, or thoughts of harming yourself or your baby.?? These symptoms are important and should be discussed with your doctor or seafood and service meat manager. depression may develop over a period of time and needs prompt medical attention.?? Do not suffer in silence.?? In both the Becoming a Family booklet and the[facility] Guide there is a screening tool used to identify women at risk, called the Sorento Scale which you have taken in the office prior to delivery and again during your hospital s shayla.?? Three to four weeks after your delivery, and before your check with your provider, take this test and share your results with your provider.?? Be sure to mention any score of 10 or more.?? Many women, and even some partners, may experience the ???baby blues?? .?? This is a state of feeling overwhelmed and weepy.?? Discomfort from childbirth, hormonal changes, exhaustion, changes to your body and lifestyle are a few of the things that contribute to the highs and lows new parents go through.?? Don???t be afraid to ask your partner or family and friends for some help at home so you can get some rest and a few minutes to yourself.?? The blues will quickly pass. Personal Safety: Every person has the right to feel safe at home and live free from physical or emotional harm.?? Ifyou have suffered mental or physical abuse at home, you are not alone.?? There is help.?? Please call HOTLINE or the [facility] Program at 911-617-1529. CARE Bathing: Give your baby a sponge bath until the cord falls off in about 1-3 weeks.?? It is not necessary to bathe your baby every day, usually every few days is sufficient. ??Keep the cord area dry.?? Some baby girls will have a small bloody vaginal discharge. No need to worry as this is normal. It is not necessary to use lotions on the baby???s skin.?? Powders and oils are not recommended.?? Babies often get rash on their skin which comes and goes quickly and does not require any special care.?? Diaper rash can be treated with a zinc oxide preparation such as Desitin or Balmex diaper cream. Circumcision Care: Your nurse will teach you how to care for your baby???s circumcision depending on the type of circumcision your doctor or seafood and service meat manager performed.?? Most circumcisions require A&D ointment for about 4-5 days.?? Be generous with the amount of A&D used as this will prevent the diaper from sticking when you go to change it. If a plastibell circumcision was done, the plastic ring around the penis will fall off in a week orso. Diapers: After the 1st??few days, the baby will start wetting more often.?? A breast fed baby will wet about6-8 times a day once mom???s milk comes in ??? usually day 4 or 5.?? This is a good sign that the baby is getting plenty to eat.?? You may notice an orangey-pink stain in the diaper which is normal for the first few days. The baby???s first bowel movements are sticky, black and tarry.?? As the baby starts to feed more often over the next couple of days, the stool will change to a seedy yellowish green color and eventually a loose mustard like stool for a breast fed baby and a more formed yellow stool for a bottle fed baby. your Baby: ??Congratulations on deciding to breastfeed your baby! You are providing your baby with the most nourishing food source on the planet, your breast milk.?? Cues such as rooting, suckling, licking and fussing may be telling you that your baby is ready to eat ??? and it is time to offer your breasts. The first weeks following the are a time for you and your baby to learn.?? The baby may be sleepy the first day after with 8 to 12 attempts ??? including 2 to 4 good feedings.?? Over the next couple of days the baby will become more wakeful, feed 8 to 12 times a day and have more wet and poopy diapers.?? Cluster feeding, especially during the evening/night time, is normal. ?? Listen for swallowing sounds and watch the baby as they become more relaxed at the breast ??? both good signs that the baby is getting a good amount of milk.?? Refrain from smoking or eating edible marijuana while you are . Even though marijuana is legal in the state of [place],??it is harmful for your baby.??It stays in breast milk for along period of time and THC can be found in the baby's urine for up to 3 weeks. Second hand smoke can also increase the risk??of Sudden Infant Syndrome / SIDS. ?? Nursing is wonderful but many moms and babies have some degree of difficulty with at first. Don???t give up!?? There are many resources available to help you overcome these temporary problems. Your emt p wants to hear from you if you are having difficulties and can offermany helpful suggestions.?? Some offices have consultants on staff. [facility]???s Consultation Service is available 7 days a week, 8am to 3pm at [phone].?? Press 1 to schedule an outpatient appointment.?? Press 3 to leave a message for the client consultant, a it architecture consultant will return your call that day or the next if you call after 3pm. Support Groups ??? [facility] offers free gatherings for moms and babies weekly.?? All groups meet at the [facility] Women???s 2nd??floor, typically in the [facility] Conference Room, Saturday???s 1 to 2 pm.?? [employer] is a worldwide organization with local community support, mother to mother support.?? Information can be found at https://www.lllusa.org Formula Feeding your Baby: Formula fed babies should eat every 3 to 4 hours.?? Look for cues that your baby is ready ??? such as rooting and sucking, licking and fussing.?? At the baby???s stomach is small and may take 10-15ml of formula.?? Over the next few days the baby will become more wakeful and feed more frequently, gradually increasing the amounts of formula taken at a feeding.?? Your emt p will provideinstructions on how to increase the amount.?? Refer to packaging for formula preparation directions, depending on the type of formula you purchase ??? powder, concentrate or ready to feed. Infant Safety: ALWAYS REMEMBER - BACK TO SLEEP! Babies sleep safest on their backs.?? Every sleep.?? Every time.?? Every nap. Babies need a firm sleep surface with a tight fitting bottom sheet.?? NO loose bedding.?? NO pillows.?? NO bumper pads or rolls.?? NO heavy or fluffy blankets. NO stuffed toys. It is not safe for your baby to sleep in your bed, in a chair, or on a sofa.?? Your baby should notsleep with you or anyone else. Car Seat: Always place your baby in a rear facing car seat in the backseat of the car. Car seat inserts that come with the car seat can be used as they are crash tested with the seat.?? You should not buy additional inserts.?? Dress the baby in a weather appropriate outfit.?? Avoid bulky clothing such as snowsuits or jackets as the baby may squirm in the seat, loosening the shoulder straps and come out of the top of the harness if you need to brake hard or are in an accident.?? Once the baby issecured in the seat you can cover your little one with a blanket if needed.?? If your baby was bornprematurely, follow the directions given to you.?? If you have not already done so, check to make sure your car seat is installed correctly. Check with your local Fire and Police Department to see if they offer car seat inspections at a location close to you. Babies Can Move: ?? Never leave your baby unattended on any surface, raised or flat, or while bathing.?? They can squirm, fall or hurt themselves.?? Always fasten the safety belt when using an infantseat or swing ??? as they may lean forward and fall. Good Handwashing is the number one way you can protect the baby from too?? many germs and prevent infection.?? When family and friends visit ask that they wash their hands before holding your baby.??Also avoid crowds the first month of your baby???s life to protect from colds and flus. Shaking a baby out of frustration can cause severe and lasting damage, even to a baby.?? If you feel you are becoming angry or overwhelmed, place the baby in a safe place and walk away.?? Call a friend or family member.?? If they are not able to offer immediate help call the Parental Stress Hotline at?? , an anonymous 20/05 source of help. Warning Signs to notify your emt p of: Most babies develop a small amount of jaundice (a yellowish skin color) in the face and upper chest, by about 3 days of age.?? If the yellow color extends below the baby???s belly or if the baby is very sleepy and not feeding well, call your emt p. A rectal temperature of 100.4F as it could be a sign of infection. Projectile vomiting that continues with each feeding could indicate reflux or a problem with the formula. Extreme sleepiness or very fussy. Cold symptoms with nasal stuffiness, especially if the baby is having difficulty feeding. Constipation with hard stools. Blue or dusky color, call [phone]. If Your Baby Needs to Remain in the Hospital: Please leave your baby???s ID bracelets on if your baby needs to remain in the hospital after you are discharged home. The phone number to NICU is [phone]. The phone number to [facility] is [phone]. The phone number to [facility] is [phone]. moms should pump every 2-3 hours or 8-12 times in 24 hours.?? If unable to place the baby to breast, if you are having difficulty getting the baby to latch on, or if the baby remains inthe hospital after you are discharged ??? bring the pumped milk to the hospital, labeled with name,date and time.?? Carry it in a small cooler or diaper bag with an ice pack and bring it the next time you visit your baby.?? Consultation Services is available if you need to rent or purchase a pump or products.?? Call and leave a message at [phone] ??? press 3 and a it architecture consultant will return your call that day or the next if you call after 3pm. ? * Mehreen Velasco RN: PERFORM Event Display: Care Team Progress Note Authored Date: [id number] Patient: ??CLAUIDO GAINES ? Age:??32 Years?Sex:??Female?:??1990?? Subjective Claudio breastfed her 2 children for 4 yrs and 2 yrs, and hopes to only breastfeed this baby for 2yrs. So far he's latching well, but she's not going to wake him up if he's sleeping. He needs his sleep. She breastfeeds him when he shows her he's hungry. She has a breast pump but not from insurance this . Assessment/Plan Claudio is a 32yo, mother of baby dorys Zuniga Jr., born at 38w6d via vaginal delivery. She was assessed for by IBCLC on delivery day. Baby 13hrs old. At time of LC visit, baby asleep in bassinet. Last documented feed at 2PM, now 7:45PM. Encouraged mother feed baby but mother declined, saying she doesn't want to wake baby if he's sleeping. Educatedon baby's feeding and sleep expectations and on the importance of waking to feed every 3hrs if babydoesn't wake on his own.??Told her that when baby is older she may be able to let him sleep but that frequent feeds are necessary in the early days and weeks of his life. Mother struggling to latch baby. Showed her asymmetric latch, mother needed reminders and encouragement but eventually latched baby. Discussed the possibility of using spoons to feed colostrum when baby doesn't latch but mother declined. Basic education given. Mother declines support tomorrow. ?? Basic education discussed with??motherincluding:? Positioning infant for optimal feeding Asymmetric latch technique Frequent breast stimulation for initiation and maintenance of milk supply Coming to full milk volume in first 14 days Hand expression Consultation reference guide given to mother with contact information for services and ongoing support as needed.? Gave info re: how to obtain pump through insurance. OB Summary : 3 Parity: 2 . Baby A - Weight: 3.184 kg Baby A - Date, Time of : 08/09/23 06:07:00 Baby A - Gender: Male Baby A - Complications: None EGA at Documented Date, Time: 38W 6D Weight at Delivery Baby A - Delivery Type: Vaginal Delivery Complications: None OB History History?(2,0,0,2)? # 1 ?Baby 1 ?Outcome Date:??06/30/2018?Outcome or Result:??Vaginal ?Gest Age:??Fullterm ? Outcome:??Live ? Sex:??Female ?? # 2 ?Baby 1 ?Outcome Date:??04/09/2020?Outcome or Result:??Vaginal ?Gest Age:??Fullterm ? Outcome:??Live ? Sex:??Female Active Problem List Active Problem List Grief reaction: (Medical) History of prior with IUGR : (Medical) Mild intermittent asthma: (Medical) Obese class I: (Medical) : (Obstetric) (11/02/22) Home Medications Albuterol: 2 puffs, Inhalation, Every 6 hours Doxylamine: 25 mg, By Mouth, Daily Multivitamin, : By Mouth, Daily Polyethylene Glycol 3350: 17 Gm, By Mouth, Daily, dissolve in water before taking Pyridoxine: Daily Medications Medications (7) Active SCHEDULED: (0) CONTINUOUS: (0) PRN: (7) Acetaminophen 325 mg Tablet (Acetaminophen Tablet) ??650 mg, By Mouth, Every 4 hours Albuterol 90mcg/Inhalation Inhaler HFA (albuterol CFC free 90 mcg/inh inhalation aerosol) ??180 mcg2 puffs, Inhalation, Every 4 hours Calcium Carbonate 500 mg (Calcium 200 mg) Chewable Tablet (Tums 500 mg Tablet) ??1,000 mg 2 tablet,Chew, 3 times a day Docusate Sodium 100 mg Capsule (Docusate Sodium Capsule) ??100 mg 1 capsule, By Mouth, 2 times a day Famotidine 10 mg/mL Inj (Famotidine Inj) ??20 mg 2 mL, IV Push Slowly, Once Ibuprofen 800 mg Tablet (Ibuprofen Tablet) ??800 mg, By Mouth, Every 8 hours Ondansetron 2mg/mL Inj (2mL Vial) (Ondansetron Inj) ??4 mg, IV Push, Every 8 hours Patient Care team information Care Team Personnel Name: Not on Staff, PCP Position: [facility] Physician (General Medicine) Member Role: PCP Name: Carley Holland RN Position: [facility] OB RN Member Role: OB RN Care Team Related Persons Name: CLAUDIO GAINES [facility] Address: home [address] [place] [id number] Name: PRADIP CARLIN Address: home [address] [place] [id number]
--- OUTSIDE RECORDS SUMMARY | 2024-04-03 11:19 | XMS_ITS | Continuity of Care Document ---
Author Organization [facility] [place] [employer] [facility] Address [address] [place] [address], [address] [place] [address]- Care Team Providers Care Typewriter Assembler Name Role Phone Not on Staff, PCP Primary Care Physician Unavail able Encounter [facility] Date(s): 08/08/23 - 08/15/23 [facility] [employer] [facility] [address] [facility] [facility] [place] [address]- Attending Physician: Esthela Gerber MD Referring Physician: Namrata Wang MD Allergies, Adverse Reactions, Alerts No Known Allergies Immunizations Given and Recorded Vaccine Date Status Refusal Reason influenza virus vaccine, inactivated 1 07/29/23 Gi lilliam tetanus/diphtheria/pertussis, acel(Tdap) 05/20/23 Given 1Result Comment: [07/29/2023] [id number] Medications Albuterol (Eqv-ProAir HFA) 90 mcg/inh inhalation aerosol 2 puffs, Inhalation, Every 6 hours, # 8.5 Gm, 1 Refills, Maintenance, 04/17/23 11:11:00 EDT, [facility]/pharmacy #[id number], Partial fill upon patient request [...] 08/10/23 15:32:00 EDT, Route to Pharmacy Electronically, [facility]/pharmacy #[id number], Partial fill upon patient request if the prescriptio... Start Date: 08/10/23 Status: Ordered etonogestrel 68 mg subcutaneous implant 1 each = 68 mg, Intradermal, housecalls nurse to Procedure, 0 Refills, Maintenance, 08/10/23 15:37:00 [...] 100 in lifetime) entered on: 03/11/23 Sex Radiology * Event Display: PDC Biophysical Profile * Event Display: PDC Biophysical Profile Authored Date: [id number] OBSTETRICS REPORT PATIENT INFO: CMRN: [id number] BMRN: [id number] : [birth year] (32 yrs)(F) Name: MARILYN Visit Date: 08/08/2023 12:59 pm ORELLANA PERFORMED BY: Performed By: Nataly Romero RDMS Attending: Sandeep Riojas MD Referred By: Namrata Wang MD Location: [address] INDICATIONS: Mild intermittent asthma J45.20 Grief reaction F43.21 History of prior with IUGR Z87.59 Oligohydramnios O41.0__0 EVALUATION: Num Of Fetuses: 1 Heart Rate(bpm): 153 Cardiac Activity: Present Presentation: Cephalic Placenta: Anterior Amniotic Fluid DENIS FV: Subjective oligohydramnios DENIS Sum(cm) Largest Pocket(cm) 4.72 3.02 RUQ(cm) RLQ(cm) 1.7 3.02 BIOPHYSICAL EVALUATION: Amniotic F.V: Within normal limits F. Tone: Observed F. Movement: Observed Score: 8/8 F. Breathing: Observed BIOMETRY: LV: 5.5 mm GESTATIONAL AGE: LMP: 39w 6d Date: 11/02/22 BEATRIZ: 08/09/23 Best: 38w 5d Det. By: Alberto Mejia BEATRIZ: 08/17/23 (02/05/23) CERVIX UTERUS ADNEXA: Cervix Appears closed COMMENTS: BPP 8/8 Oligohydramnios is present by DENIS criteria but an MVP of 3 cm is present. Consider EGA, delivery is advised. If declined, recommend NST and clinical evaluation for possible ROM. Sandeep Riojas MD Electronically Signed Final Report 08/08/2023 01:12 pm * Event Display: PDC Biophysical Profile Authored Date: Please click on pdf link to open report Patient Care team information Care Team Personnel Name: Not on Staff, PCP Position: [facility] Physician (General Medicine) Member Role: PCP Care Team Related Persons Name: PRADIP BARROW Address: [employer] Address: home [address] [place] [address] Name: PRADIP CARLIN Address: home [address] [place], [place] [id number]
--- OUTSIDE RECORDS SUMMARY | 2024-04-03 11:19 | XMS_ITS | Continuity of Care Document ---
Author Organization [facility] [employer] Blanco meloFunky Movess [employer] Address [address] [place] [address], [address] [place] [address]- Care Team Providers Care Punch Operator Name Role Phone Not on Staff, PCP Primary Care Physician Unavail able Encounter [facility] Date(s): 04/17/23 - 04/24/23 [facility] [employer] Mov[facility] [address] [facility], [address] [place] [address]- Attending Physician: Anna Heath MD Referring Physician: Alyson Moseley CNM Allergies, Adverse Reactions, Alerts No Known Allergies Medications Albuterol (Eqv-ProAir HFA) 90 mcg/inh inhalation aerosol 2 puffs, Inhalation, Every 6 hours, # 8.5 Gm, 1 Refills, Maintenance, 04/17/23 11:11:00 EDT, [facility]/pharmacy #[id number], Partial fill upon patient request if the prescription is for a schedule II opioid drug., 2 puffs Inhalation Every 6 hours, 167.6, cm, 05/2... Start Date: 04/17/23 Status: Ordered PNV Plus By Mouth, Daily, [...] Confirmed Active Mild intermittent asthma Confirmed Active Sterilization consult Confirmed Active Vital Signs Most recent to oldest [Reference Range]: 1 Height 167.6 cm (04/17/23 11:12 AM) Weight 84.09 kg (04/17/23 11:12 AM) Body Mass Index [18.5-24.99 kg/m2] 29.94 kg/m2 *H* (04/17/23 11:12 AM) Blood Pressure [90-138/55-84 mm Hg] 98/6 0mm Hg (04/17/23 11:12 AM) Blood pressure sites Arm, left (04/17/23 11:12 AM) Weight Obtained Via Standing scale (04/17/23 11:12 AM) Social History Social History Type Response Smoking Status Never (less than 100 in lifetime) entered on: 03/11/23 Sex Note * Anai Romero: PERFORM, SIGN, VERIFY Event Display: Patient Education/Instruction Authored Date: [id number] [facility] *Artem WWG DIESEL DINKEY OPERATOR Clinical Summary Name MARILYN ORELLANA Age 32 Years 1990 PCP Not on Staff, PCP PCP Phone Visit Date 04/17/2023 11:00:00 Additional Instructions: Scheduled Appointments?? Future Appointments ?*[facility]??DIESEL DINKEY OPERATOR ?[address]??[place],??[place],??[address] ?Phone:??--?Fax:??-- ?Appt. Date:??05/06/2023?4:40 PM ?Scheduled Provider:??Felipe LEVI, Namrata Mera ?*[facility]WWG??DIESEL DINKEY OPERATOR ?[address]??[place],??[place],??[address] ?Phone:??--?Fax:??-- ?Appt. Date:??05/20/2023?2:00 PM ?Scheduled Provider:??Jared LEVI, Sasha Reyes ?*[facility]??DIESEL DINKEY OPERATOR ?[address]??[place],??[place],??[address] ?Phone:??--?Fax:??-- ?Appt. Date:??06/04/2023?4:40 PM ?Scheduled Provider:??Gene Cormier MD ?*[facility]WW[facility]??DIESEL DINKEY OPERATOR ?[address]??[place],??[place],??[address] ?Phone:??--?Fax:??-- ?Appt. Date:??06/19/2023?3:20 PM ?Scheduled Provider:??Chasity Guerra Follow-Up Instructions ?? Diagnosis state, incidental; Personal history of other complications of , childbirth and the puerperium; Mild intermittent asthma, uncomplicated; Encounter for other general counseling and advice on contraception Medications: Please continue your medications until treatment is completed or stopped by your provider. Discuss any questions related to medications with your provider. Medications to Continue Taking That Have Changed [id number], [address], [place] [id number], [phone] - Albuterol (Albuterol (Eqv-ProAir HFA) 90 mcg/inh inhalation aerosol) 2 puff(s) Inhalation every 6hours. Refills: 1. Next Dose: Medications to Continue with No Changes These medications were not printed or sent to your pharmacy Doxylamine (Unisom 25 mg oral tablet) 1 tab(s) Oral Daily. Next Dose: Multivitamin, (PNV Plus) Oral Daily. Next Dose: Pyridoxine (Vitamin B6 25 mg oral tablet) 1 tab(s) Oral Daily. Next Dose: Allergy Info:?? NKA Medications Given This Visit Future Orders ?CBC? Order Date:04/17/23?- Complete on or after?04/17/23 ?Syphilis Testing formerly ordered as RPR? Order Date:04/17/23?- Complete on or after?04/17/23 ?Glucose Tolerance 1 Hr? Order Date:04/17/23?- Complete on or after?04/17/23 Vital Signs Height 167.6 cm Weight 84.09 kg BMI 29.94 kg/m2 Blood Pressure 98 mm Hg/60 mm Hg Temperature Pulse Rate Respiratory Rate 02 Sat Mode of Delivery / You can now view a summary of your hospital visit from the comfort of your home through a free online portal called [employer]. [employer] is a website that allows you to securely view your medical information including discharge summary, medications and follow-up visits. ??You can alsosend a secure electronic message to your doctor???s office to request appointments, renew medications or just ask a question. You can enroll at [email or web address] or register during your next office visit. Disclaimer:?? The information provided is of a general nature and is intended to be used in conjunction with the recommendations and advice of your health care practitioner. ??Every effort has been made to ensure that the information provided is accurate and complete at the time it is provided to you however, as your needs change, or, as new ??information becomes available, different or additional instructions may be required. If you have questions, please consult with your primary care provider or pharmacist, as appropriate. ??This information is not intended to serve as substitution for assessment and evaluation by a qualified health care provider. If you do not have a primary care provider, you may find a [facility] provider by calling [facility] [employer] at [phone]. For information about the plan of care including goals and instructions for your diagnosis, please see the patient education orders section of this document. Patient Education Materials?? The content of this educational material or handout may have been modified, supplemented, or adapted from its original content and format to support your individualized medical care. Please follow instructions discussed with your provider during this visit as well as any education documents you were given today. Patient Care team information Care Team Personnel Name: Not on Staff, PCP Position: S Physician (General Medicine) Member Role: PCP Care Team Related Persons Name: PRADIP CARLIN Address: home [address] [place] [address]
--- OUTSIDE RECORDS SUMMARY | 2024-04-03 11:20 | XMS_ITS | Continuity of Care Document ---
Author Organization [facility] Blanco meloTagoos [facility] Address [address] [place] [address], 4t [place] [address]- Care Team Providers Care Hot Dipper Name Role Phone Not on Staff, PCP Primary Care Physician Unavail able [facility]counter [facility] Date(s): 07/29/23 - 08/05/23 [facility] Ver[employer] [facility] [address] [facility], 4th [place] [address]- Attending Physician: Jared LEVI [OB], Sasha Reyes Allergies, Adverse Reactions, Alerts No Known Allergies Immunizations Given and Recorded Vaccine Date Status Refusal Reason influenza virus vaccine, inactivated 1 07/29/23 Gi lilliam tetanus/diphtheria/pertussis, acel(Tdap) 05/20/23 Given 1Result Comment: [07/29/2023] [id number] Medications Albuterol (Eqv-ProAir HFA) 90 mcg/inh inhalation [...] Confirmed Active Obese class I Confirmed Active Social History Social History Type Response Smoking Status Never (less than 100 in lifetime) entered on: 03/11/23 Sex Radiology * Event Display: PDC Follow up Growth * Event Display: PDC Follow up Growth Authored Date: [id number] OBSTETRICS REPORT PATIENT INFO: CMRN: [id number] BMRN: [id number] : [birth year] (32 yrs)(F) Name: MARILYN Visit Date: 07/29/2023 03:10 pm ORELLANA PERFORMED BY: Performed By: Mehreen Bray [facility] Attending: Sandeep Riojas MD Referred By: Sasha Coleman MD Location: [facility] - [address] [place] [address] INDICATIONS: History of prior with IUGR Z87.59 M - BMI O99.21_ E66.01 EVALUATION: Num Of Fetuses: 1 Heart Rate(bpm): 153 Cardiac Activity: Present Presentation: Cephalic Placenta: Anterior Amniotic Fluid DENIS FV: Within normal limits DENIS Sum(cm) Largest Pocket(cm) 8.8 2.7 RUQ(cm) RLQ(cm) LUQ(cm) LLQ(cm) 2.5 2 1.6 2.7 BIOPHYSICAL EVALUATION: Amniotic F.V: Within normal limits F. Tone: Observed F. Movement: Observed Score: 06/04 F. Breathing: Observed BIOMETRY: BPD: 90.9 mm G.Age: 36w 6d 56 % HC: 326.1 mm G.Age: 37w 0d 19 % AC: 322.4 mm G.Age: 36w 1d 32 % FL: 70.9 mm G.Age: 36w 2d 26 % HUM: 63.8 mm G.Age: 37w 0d 67 % CI: 77.82 % 70 - 86 FL/HC: 21.7 % 20.8 - 22.6 HC/AC: 1.01 0.92 - 1.05 FL/BPD: 78.0 % 71 - 87 FL/AC: 22.0 % 20 - 24 Est. FW: 2920 gm 6 lb 7 oz 33 % GESTATIONAL AGE: LMP: 38w 3d Date: 11/02/22 BEATRIZ: 08/09/23 U/S Today: 36w 4d BEATRIZ: 08/22/23 Best: 37w 2d Det. By: U/S Zaki Mejia BEATRIZ: 08/17/23 (02/05/23) CERVIX UTERUS ADNEXA: Cervix Not well seen COMMENTS: The estimated weight is within normal limits. DENIS subjectively decreased but technically normal. [facility] 06/04 Message sent in [facility]IS regarding the above finding. RECOMMENDATIONS: Repeat fluid check in 1 week. Sandeep Riojas MD Electronically Signed Final Report 07/29/2023 04:20 pm * Event Display: PDC Follow up Growth Authored Date: Please click on pdf link to open report Patient Care team information Care Team Personnel Name: Not on Staff, PCP Position: [facility] Physician (General Medicine) Member Role: PCP Care Team Related Persons Name: PRADIP CARLIN Address: home [address] [place] [address]
--- OUTSIDE RECORDS SUMMARY | 2024-04-03 11:20 | XMS_ITS | Continuity of Care Document ---
Author Organization [facility] [employer] Blanco [employer] Address [address] [place] [address], [address] [place] [address]- Care Team Providers Care Pet Training Instructor Name Role Phone Not on Staff, PCP Primary Care Physician Unavail able Encounter [facility] Date(s): 03/22/23 - 03/29/23 [facility] [place] [employer] [facility] [address] [facility], [address] [place] [address]- Attending Physician: Anna Heath MD Referring Physician: Not on Staff, Referring MD Allergies, Adverse Reactions, Alerts No Known Allergies Medications Albuterol (Eqv-ProAir HFA) 90 mcg/inh inhalation aerosol 2 puffs, Inhalation, Every 6 hours, # 8.5 Gm, 1 Refills, Maintenance, 03/22/23 13:31:00 EDT, [facility]/pharmacy #[id number], Partial fill upon patient request if the prescription is for a schedule II opioid drug., 2 puffs Inhalation Every 6 hours, 167.6, cm, 02/26... Start Date: 03/22/23 Status: Ordered PNV Plus By Mouth, Daily, [...] Effective Dates Status Health St atus Informant Mild intermittent asthma Confirmed Active Vital Signs Most recent to oldest [Reference Range]: 1 Height 167.6 cm (03/22/23 1:17 PM) Weight 79.5 kg (03/22/23 1:17 PM) Body Mass Index [18.5-24.99 kg/m2] 28.3 kg/m2 *H* (03/22/23 1:17 PM) Blood Pressure [90-138/55-84 mm Hg] 109/ 85mm Hg (03/22/23 1:17 PM) Blood pressure sites Arm, right (03/22/23 1:17 PM) Weight Obtained Via Standing scale (03/22/23 1:17 PM) Social History Social History Type Response Smoking Status Never (less than 100 in lifetime) entered on: 03/11/23 Sex Patient Care team information Care Team Personnel Name: Not on Staff, PCP Position: S Physician (General Medicine) Member Role: PCP Care Team Related Persons Name: RAEGAN PRADIP Address: home [address] [place] [address]
--- OUTSIDE RECORDS SUMMARY | 2024-04-03 11:20 | XMS_ITS | Continuity of Care Document ---
Author Organization [facility] Address [address] [facility], 4t [place] [address]- Care Team Providers Care Control Clerk Auditing Name Role Phone Not on Staff, PCP Primary Care Physician Unavail able [facility] Date[facility]s): 07/31[facility]23 - [facility] [address] [facility], 4th [place] [address]- Allergies, Adverse Reactions, Alerts No Known Allergies Immunizations Given and Recorded Vaccine Date Status Refusal Reason influenza virus vaccine, inactivated 1 07/29/23 Gi lilliam tetanus/diphtheria/pertussis, acel(Tdap) 05/20/23 Given 1Result Comment: [07/29/2023] [id number] Medications Albuterol (Eqv-ProAir HFA) 90 mcg/inh inhalation aerosol 2 puffs, Inhalation, Every 6 hours, # 8.5 Gm, 1 Refills, Maintenance, 04/17/23 11:11:00 EDT, [facility]/pharmacy #[id number], Partial fill upon patient request if [...] 08/10/23 15:32:00 EDT, Route to Pharmacy Electronically, [facility]/pharmacy #[id number], Partial fill upon patient request if the prescriptio... Start Date: 08/10/23 Status: Ordered etonogestrel 68 mg subcutaneous implant 1 each = 68 mg, Intradermal, order caller to Procedure, 0 Refills, Maintenance, 08/10/23 15:37:00 [...] Name: PRADIP BARROW Address: [employer] Address: home [address] [place] [address] [place] Name: PRADIP CARLIN Address: home [address] [place] [address]
--- OUTSIDE RECORDS SUMMARY | 2024-04-03 11:20 | XMS_ITS | Continuity of Care Document ---
Author Organization [facility] Ramuava meloATOMOO [facility] Address [address] [place] [address], [address]t [place] [address]- Care Team Providers Care Case Preparer And Liner Name Role Phone Not on Staff, PCP Primary Care Physician Unavail able Encounter [facility] Date(s): 07/03/23 - 07/10/23 [facility] [address] [place] [address], 4th [address] [place], [place] [address] Attending Physician: Jared LEVI [OB], Sasha Reyes Allergies, Adverse Reactions, Alerts No Known Allergies Immunizations Given and Recorded Vaccine Date Status Refusal Reason tetanus/diphtheria/pertussis, acel(Tdap) 05/20/23 Given Medications Albuterol (Eqv-ProAir HFA) 90 mcg/inh inhalation [...] Display: PDC Follow up Growth Authored Date: [id number] OBSTETRICS REPORT PATIENT INFO: CMRN: [id number] BMRN: [id number] : [birth year] (32 yrs)(F) Name: MARILYN Visit Date: 07/03/2023 03:05 pm ESTEBAN PERFORMED BY: Performed By: Edna Cali RDMS Attending: Sasha Paula MD Referred By: Sasha Coleman MD Location: [address] INDICATIONS: History of prior with IUGR Z87.59 EVALUATION: Num Of Fetuses: 1 Heart Rate(bpm): 144 Cardiac Activity: Present Presentation: Cephalic Placenta: Anterior Amniotic Fluid DENIS FV: Within normal limits DENIS Sum(cm) Largest Pocket(cm) 10.5 3.9 RUQ(cm) RLQ(cm) LUQ(cm) LLQ(cm) 3.9 2.6 2.3 1.7 BIOMETRY: BPD: 86.6 mm G.Age: 35w 0d 83 % HC: 318 mm G.Age: 35w 5d 71 % AC: 312.7 mm G.Age: 35w 1d 91 % FL: 64.7 mm G.Age: 33w 3d 34 % LV: 5.4 mm CI: 74.69 % 70 - 86 FL/HC: 20.3 % 19.4 - 21.8 HC/AC: 1.02 0.96 - 1.11 FL/BPD: 74.7 % 71 - 87 FL/AC: 20.7 % 20 - 24 Est. FW: 2506 gm 5 lb 8 oz 78 % GESTATIONAL AGE: LMP: 34w 5d Date: 11/02/22 BEATRIZ: 08/09/23 U/S Today: 34w 6d BEATRIZ: 08/08/23 Best: 33w 4d Det. By: U/S Zaki Mejia BEATRIZ: 08/17/23 (02/05/23) CERVIX UTERUS ADNEXA: Cervix Not well seen COMMENTS: The estimated weight is within normal limits. Sasha Paula MD Electronically Signed Final Report 07/03/2023 05:33 pm * Event Display: PDC Follow up Growth Authored Date: [id number] Please click on pdf link to open report Patient Care team information Care Team Personnel Name: Not on Staff, PCP Position: [facility] Physician (General Medicine) Member Role: PCP Care Team Related Persons Name: PRADIP CARLIN Address: home [facility] [place] [address]
--- OUTSIDE RECORDS SUMMARY | 2024-04-03 11:20 | XMS_ITS | Continuity of Care Document ---
Author Organization [facility] Denver[employer] mel[employer]tar Address [address] [place] [address], [address] [place] [address]- Care Team Providers Care Flight Surgeon Name Role Phone Not on Staff, PCP Primary Care Physician Unavail able Encounter [facility] Date(s): 04/08/23 - 04/15/23 [facility] [employer] [facility] [address] [facility], [address] [place] [address]- Attending Physician: Esthela Gerber MD Referring Physician: Kumar LEVI, Anna Mera Allergies, Adverse Reactions, Alerts No Known Allergies Medications Albuterol (Eqv-ProAir HFA) 90 mcg/inh inhalation aerosol 2 puffs, Inhalation, Every 6 hours, # 8.5 Gm, 1 Refills, Maintenance, 03/22/23 13:31:00 EDT, [facility]/pharmacy #[id number], Partial fill upon patient request if the prescription is for a schedule II opioid drug., 2 puffs Inhalation Every 6 hours, 167.6, cm, 2... Start Date: 03/22/23 Status: Ordered PNV Plus [...] atus Informant Mild intermittent asthma Confirmed Active Social History Social History Type Response Smoking Status Never (less than 100 in lifetime) entered on: 03/11/23 Sex Radiology * Event Display: [facility] Detailed Anatomy Survey, Lvl 2 * Event Display: [facility] Detailed Anatomy Survey, Lvl 2 Authored Date: [id number] OBSTETRICS REPORT PATIENT INFO: CMRN: [id number] BMRN: [id number] : [birth year] (32 yrs)(F) Name: MARILYN Visit Date: 04/08/2023 01:59 pm ORELLANA PERFORMED BY: Performed By: Mehreen Bray RDMS Attending: Esthela Gerber MD Referred By: Anna Heath MD Location: [address] INDICATIONS: Intrauterine growth restriction, O36.5990 EVALUATION: Num Of Fetuses: 1 Heart Rate(bpm): 152 Cardiac Activity: Present Presentation: Breech Placenta: Anterior P. Cord Insertion: Not well seen Amniotic Fluid DENIS FV: Within normal limits BIOMETRY: BPD: 51.1 mm G.Age: 21w 3d HC: 192.1 mm G.Age: 21w 3d AC: 167.6 mm G.Age: 21w 5d FL: 34.1 mm G.Age: 20w 5d HUM: 32.3 mm G.Age: 20w 6d CER: 22.8 mm G.Age: 21w 3d NFT: 4.6 mm LV: 4.8 mm CM: 4.9 mm CI: 71.71 % 70 - 86 FL/HC: 17.8 % 15.9 - 20.3 HC/AC: 1.15 1.06 - 1.25 FL/BPD: 66.7 % FL/AC: 20.3 % 20 - 24 Est. FW: 415 gm 0 lb 15 oz GESTATIONAL AGE: LMP: 22w 3d Date: 11/02/22 BEATRIZ: 08/09/23 U/S Today: 21w 2d BEATRIZ: 08/17/23 Best: 21w 2d Det. By: U/Mimi Mejia BEATRIZ: 08/17/23 (02/05/23) TARGETED ANATOMY: Central Nervous System Calvarium/Cranial V.: No anomalies seen Intracranial Radha: No anomalies seen Cavum: No anomalies seen Lateral Ventricles: No anomalies seen Choroid Plexus: No anomalies seen Cereb./Vermis: No anomalies seen Cisterna Magna: No anomalies seen Midline Falx: No anomalies seen Spine Cervical: No anomalies seen Thoracic: No anomalies seen Lumbar: No anomalies seen Sacral: No anomalies seen Head/Neck Lips: Intact upper lip Neck: No anomalies seen Nuchal Fold: No anomalies seen Palate: No anomalies seen Profile: No anomalies seen Orbits/Eyes: Both lenses seen Thorax Lungs: No anomalies seen 4 Chamber View: No anomalies seen Cardiac Rhythm: No anomalies seen Rt Outflow Tract: No anomalies seen Lt Outflow Tract: No anomalies seen Aortic Arch: No anomalies seen Ductal Arch: No anomalies seen SVC: No anomalies seen Cardiac [place]: No anomalies seen Diaphragm: No anomalies seen 3 Vessel View: No anomalies seen IVC: No anomalies seen Abdomen Ventral Wall: No anomalies seen Cord Insertion: No anomalies seen (into placenta) Stomach: No anomalies seen Liver: No anomalies seen Lt Kidney: No anomalies seen Rt Kidney: No anomalies seen Bladder: No anomalies seen Bowel: No anomalies seen Extremities Lt Humerus: No anomalies seen Rt Humerus: No anomalies seen Lt Forearm: No anomalies seen Rt Forearm: No anomalies seen Lt Hand: No anomalies seen Rt Hand: No anomalies seen Lt Femur: No anomalies seen Rt Femur: No anomalies seen Lt Lower Leg: No anomalies seen Rt Lower Leg: No anomalies seen Lt Foot: No anomalies seen Rt Foot: No anomalies seen Other Umbilical Cord: 3-vessel CERVIX UTERUS ADNEXA: Cervix Length: 5 cm. Appears closed Adnexa No anomalies noted COMMENTS: The detailed anatomy survey was unremarkable. Esthela Gerber MD Electronically Signed Final Report 04/08/2023 02:59 pm * Event Display: PDC Detailed Anatomy Survey, Lvl 2 Authored Date: [id number] Please click on pdf link to open report Patient Care team information Care Team Personnel Name: Not on Staff, PCP Position: S Physician (General Medicine) Member Role: PCP Care Team Related Persons Name: PRADIP CARLIN Address: home [address] [place] [address]
--- OUTSIDE RECORDS SUMMARY | 2024-04-03 11:20 | XMS_ITS | Continuity of Care Document ---
Author Organization [facility] Dumontava mel[employer]Cle[employer] Cloud Address [address] [place] [address], [address]t [place] [address]- Care Team Providers Care Forestry Aid Technician Name Role Phone Not on Staff, PCP Primary Care Physician Unavail able Encounter [facility] Date(s): 05/20/23 - 05/27/23 [facility] [employer] [place] [address] [facility], [address]th [place] [address]- Attending Physician: Jared LEVI [OB], Sasha Reyes Referring Physician: Kumar LEVI, Anna Mera Allergies, [...] I Confirmed Active Sterilization consult Confirmed Active Vital Signs Most recent to oldest [Reference Range]: 1 Height 167.6 cm (05/20/23 2:01 PM) Weight 91.63 kg (05/20/23 2:01 PM) Body Mass Index [18.5-24.99 kg/m2] 32.62 kg/m2 *>HHI* (05/20/23 2:01 PM) Blood Pressure [90-138/55-84 mm Hg] 113/ 72mm Hg (05/20/23 2:01 PM) Blood pressure sites Arm, right (05/20/23 2:01 PM) Weight Obtained Via Standing scale (05/20/23 2:01 PM) Social History Social History Type Response Smoking Status Never (less than 100 in lifetime) entered on: 03/11/23 Sex Note * Anai Romero: PERFORM, SIGN, VERIFY Event Display: Patient Education/Instruction Authored Date: [id number] [facility] *Artem WWG ASBESTOS SHINGLE INSPECTOR Clinical Summary Name MARILYN ORELLANA Age 32 Years 1990 PCP Not on Staff, PCP PCP Phone Visit Date 05/20/2023 13:38:00 Additional Instructions: Scheduled Appointments?? Future Appointments ?*[facility]??ASBESTOS SHINGLE INSPECTOR ?[address]??[place],??[place],??[address] ?Phone:??--?Fax:??-- ?Appt. Date:??06/04/2023?4:40 PM ?Scheduled Provider:??Gene Cormier MD ?*[facility]??[facility]BESTOS SHINGLE INSPECTOR ?[address]??[place],??[place],??[address] ?Phone:??--?Fax:??-- ?Appt. Date:??06/19/2023?3:20 PM ?Scheduled Provider:??Chasity Guerra ?*[facility]WWG??ASBESTOS SHINGLE INSPECTOR ?Phone:??--?Fax:??-- ?Appt. Date:??07/03/2023?3:00 PM ?Scheduled Provider:??[facility] [address] [facility] ?*[facility]WWG??ASBESTOS SHINGLE INSPECTOR ?[address]??[place],??[place],??[address] ?Phone:??--?Fax:??-- ?Appt. Date:??07/03/2023?4:20 PM ?Scheduled Provider:??Lorenzo HESS, Chasity Hope ?*[facility]??ASBESTOS SHINGLE INSPECTOR ?[address]??[place],??[place],??[address] ?Phone:??--?Fax:??-- ?Appt. Date:??07/16/2023?4:20 PM ?Scheduled Provider:??Evie Momin MD ?*[facility]??ASBESTOS SHINGLE INSPECTOR ?[address]??[place],??[place],??[address] ?Phone:??--?Fax:??-- ?Appt. Date:??07/24/2023?4:40 PM ?Scheduled Provider:??Chasity Guerra Hope ?*[facility]??ASBESTOS SHINGLE INSPECTOR ?Phone:??--?Fax:??-- ?Appt. Date:??07/29/2023?3:00 PM ?Scheduled Provider:??[facility] [address] [facility] ?*[facility]G??ASBESTOS SHINGLE INSPECTOR ?[address]??[place],??[place],??[address] ?Phone:??--?Fax:??-- ?Appt. Date:??07/29/2023?4:20 PM ?Scheduled Provider:??Felipe LEVI, Namrata Mera ?*[facility]??ASBESTOS SHINGLE INSPECTOR ?[address]??[place],??[place],??[address] ?Phone:??--?Fax:??-- ?Appt. Date:??08/05/2023?4:00 PM ?Scheduled Provider:??Sasha Coleman MD ?*[facility]??ASBESTOS SHINGLE INSPECTOR ?[address],??[place],??[address] ?Phone:??--?Fax:??-- ?Appt. Date:??08/12/2023?4:00 PM ?Scheduled Provider:??Sasha Coleman MD Follow-Up Instructions ?? Diagnosis state, incidental; Mild intermittent asthma, uncomplicated; Personal history of other complications of , childbirth and the puerperium; Encounter for other general counseling and advice on contraception Medications: Please continue your medications until treatment is completed or stopped by your provider. Discuss any questions related to medications with your provider. Medications to Continue with No Changes These medications were not printed or sent to your pharmacy Albuterol (Albuterol (Eqv-ProAir HFA) 90 mcg/inh inhalation aerosol) 2 puff(s) Inhalation every 6 hours. Refills: 1. Next Dose: Doxylamine (Unisom 25 mg oral tablet) 1 tab(s) Oral Daily. Next Dose: Multivitamin, (PNV Plus) Oral Daily. Next Dose: Polyethylene Glycol 3350 (MiraLax oral powder for reconstitution) 17 gram Oral Daily. dissolve in water before taking. Refills: 1. Next Dose: Pyridoxine (Vitamin B6 25 mg oral tablet) 1 tab(s) Oral Daily. Next Dose: Allergy Info:?? NKA Medications Given This Visit Medication Dose Route tetanus/diphtheria/pertussis, acel(Tdap) ((Tdap) diphtheria/pertussis, acel/tetanus vacc) 0.5 mL Intramuscular Future Orders ?PDC Follow up Growth? Order Date:05/20/23?- Complete by?05/24/23 ?PDC Follow up Growth? Order Date:06/17/23?- Complete by?06/21/23 ?PDC Follow up Growth? Order Date:07/15/23?- Complete by?07/19/23 ?PDC Follow up Growth? Order Date:08/12/23?- Complete by?08/16/23 Vital Signs Height 167.6 cm Weight 91.63 kg BMI 32.62 kg/m2 Blood Pressure 113 mm Hg/72 mm Hg Temperature Pulse Rate Respiratory Rate 02 Sat Mode of Delivery / You can now view a summary of your hospital visit from the comfort of your home through a free online portal called [employer]. [employer] is a website that allows you to securely view your medical information including discharge summary, medications and follow-up visits. ??You can alsosend a secure electronic message to your doctor???s office to request appointments, renew medications or just ask a question. You can enroll at [email or web address] or register during your next office visit. [...] primary care provider, you may find a [facility] provider by calling [facility] Link at [phone]. For information about the plan of care [...] Related Persons Name: PRADIP CARLIN Address: home [address] [place] [address]
--- OUTSIDE RECORDS SUMMARY | 2024-04-03 11:20 | XMS_ITS | Continuity of Care Document ---
Author Organization [facility] Blanco [facility] Address [address] [place] [address], [address] [place] [address]- Care Team Providers Care Buffet Waiter/Waitress Name Role Phone Not on Staff, PCP Primary Care Physician Unavail able Encounter [facility] Date(s): 05/21/23 - 09/18/23 [facility] [address] [facility], 4th [place] [address]- Attending Physician: Felipe LEVI, Namrata Mera Allergies, Adverse Reactions, Alerts No Known Allergies Immunizations Given and Recorded Vaccine Date Status Refusal Reason influenza virus vaccine, inactivated 1 07/29/23 Gi lilliam tetanus/diphtheria/pertussis, acel(Tdap) 05/20/23 Given 1Result Comment: [07/29/2023] [id number] Medications Albuterol (Eqv-ProAir HFA) 90 mcg/inh inhalation aerosol 2 puffs, Inhalation, Every 6 hours, # 8.5 Gm, 1 Refills, Maintenance, 04/17/23 11:11:00 EDT, [facility]/pharmacy #[id number], Partial fill upon patient request if the prescription is for a schedule II opioid drug., 2 puffs Inhalation Every 6 hours, 167.6, cm, 2... Start Date: 04/17/23 Status: Ordered Colace sodium 100 mg oral capsule 100 mg, 1, capsule, By Mouth, 2 times a day, PRN, # 28 capsule, Refills 1, Tot. Refills 1, Maintenance, for constipation, 08/10/23 15:32:00 EDT, Route to Pharmacy Electronically, [facility]/pharmacy #[id number], Partial fill upon patient request if the prescriptio... Start Date: 08/10/23 Status: Ordered etonogestrel 68 mg subcutaneous implant 1 each = 68 mg, Intradermal, call center representative to Procedure, 0 Refills, Maintenance, 08/10/23 15:37:00 [...] Name: PRADIP BARROW Address: [employer] Address: home [address] [place] [address] [place] Name: PRADIP CARLIN Address: home [address] [place] [address]
--- OUTSIDE RECORDS SUMMARY | 2024-04-03 11:20 | XMS_ITS | Continuity of Care Document ---
Author Organization [facility] Ramu Blanco [employer] [facility] Address [address] [place] [address], [address] [place] [address]- Care Team Providers Care Industrial Diamond Polisher Name Role Phone Not on Staff, PCP Primary Care Physician Unavail able Encounter [facility] Date(s): 02/18/23 - 03/20/23 [facility] Ramu Skinny[employer] [facility] [address] [facility], [address]th [place] [address]- Medications PNV Plus By Mouth, Daily, 0 Refills, [...] opioid drug. Start Date: 03/11/23 Status: Ordered Social History Social History Type Response Smoking Status Never (less than 100 in lifetime) entered on: 03/11/23 Sex Patient Care team information Care Team Personnel Name: Not on Staff, PCP Position: S Physician (General Medicine) Member Role: PCP Care Team Related Persons Name: DARAPRADIP Holland Address: home [address] [place] [address]
--- OUTSIDE RECORDS SUMMARY | 2024-04-03 11:20 | XMS_ITS | Continuity of Care Document ---
Author Organization [facility] Ramuava [employer] [facility] Address [address] [place] [address], [address]t [place] [address]- Care Team Providers Care Long Term Acute Care Registered Nurse Name Role Phone Not on Staff, PCP Primary Care Physician Unavail able [place] [facility] Date(s): 07/03/23 - 07/10/23 [facility] [place] [employer] [facility] [address] [facility], 4th [place] [address]- Attending Physician: Luciano Lechuga MD Referring Physician: Chasity Guerra Allergies, Adverse Reactions, Alerts No Known Allergies Immunizations Given and Recorded Vaccine Date Status Refusal Reason tetanus/diphtheria/pertussis, acel(Tdap) 05/20/23 Given Medications Albuterol (Eqv-ProAir HFA) 90 mcg/inh inhalation aerosol 2 puffs, Inhalation, Every 6 hours, # 8.5 Gm, 1 Refills, Maintenance, 04/17/23 11:11:00 EDT, [facility]/pharmacy #[id number], Partial fill upon patient request if [...] oldest [Reference Range]: 1 Height 167.6 cm (07/03/23 3:31 PM) Weight 95.00 kg (07/03/23 3:31 PM) Body Mass Index [18.5-24.99 kg/m2] 33.82 kg/m2 *>HHI* (07/03/23 3:31 PM) Blood Pressure [90-138/55-84 mm Hg] 98/6 8mm Hg (07/03/23 3:31 PM) Blood pressure sites Arm, left (07/03/23 3:31 PM) Weight Obtained Via Standing scale (07/03/23 3:31 PM) Social History Social History Type Response Smoking Status Never (less than 100 in lifetime) entered on: 03/11/23 Sex Patient Care team information Care Team Personnel Name: Not on Staff, PCP Position: S Physician (General Medicine) Member Role: PCP Care Team Related Persons Name: PRADIP CARLIN Address: home [address] [place] [address]
--- OUTSIDE RECORDS SUMMARY | 2024-04-03 11:20 | XMS_ITS | Continuity of Care Document ---
Author Organization [facility] Address [address] [place] [address]- Care Team Providers Care Store Receiving Specialist Name Role Phone Not on Staff, PCP Primary Care Physician Unavail able Encounter [facility] Date(s): 03/22/23 - 04/21/23 [facility] [address] [place] [address] Attending Physician: Debi Lopez Admitting Physician: Debi Lopez Referring Physician: AdmtrDebi Allergies, Adverse Reactions, Alerts No Known Allergies Medications Albuterol (Eqv-ProAir HFA) 90 mcg/inh inhalation aerosol 2 puffs, Inhalation, Every 6 hours, # 8.5 Gm, 1 Refills, Maintenance, 04/17/23 11:11:00 EDT, [id number], Partial fill upon patient request if the prescription is for a schedule II opioid drug., 2 puffs Inhalation Every 6 hours, 167.6, cm, 02/26... Start Date: 04/17/23 Status: Ordered PNV Plus [...] asthma Confirmed Active Sterilization consult Confirmed Active Social History Social History Type Response Smoking Status Never (less than 100 in lifetime) entered on: 03/11/23 Sex Patient Care team information Care Team Personnel Name: Not on Staff, PCP Position: S Physician (General Medicine) Member Role: PCP Care Team Related Persons Name: RPADIP CARLIN Address: home [address] [place] [address]
--- OUTSIDE RECORDS SUMMARY | 2024-04-03 11:20 | XMS_ITS | Continuity of Care Document ---
Author Organization [facility] Blanco [employer] [facility] Address [address] [place] [address], [address] [place] [address]- Care Team Providers Care Guest Services Officer Name Role Phone Not on Staff, PCP Primary Care Physician Unavail able Encounter [facility] Date(s): 08/05/23 - 08/12/23 [facility] [employer] [facility] [address] [facility], 4th [place] [address]- Attending Physician: Jared LEVI [OB], Sasha Reyes Allergies, Adverse Reactions, Alerts No Known Allergies Immunizations Given and Recorded Vaccine Date Status Refusal Reason influenza virus vaccine, inactivated 1 07/29/23 Gi lilliam tetanus/diphtheria/pertussis, acel(Tdap) 05/20/23 Given 1Result Comment: [07/29/2023] [id number] Medications Albuterol (Eqv-ProAir HFA) 90 mcg/inh inhalation aerosol 2 puffs, Inhalation, Every 6 hours, # 8.5 Gm, 1 Refills, Maintenance, 04/17/23 11:11:00 EDT, [facility]/pharmacy #[id number], Partial fill upon patient request if [...] 08/10/23 15:32:00 EDT, Route to Pharmacy Electronically, [facility]/pharmacy #[id number], Partial fill upon patient request if the prescriptio... Start Date: 08/10/23 Status: Ordered etonogestrel 68 mg subcutaneous implant 1 each = 68 mg, Intradermal, call or contact centre operator to Procedure, 0 Refills, Maintenance, 08/10/23 [...] oldest [Reference Range]: 1 Height 167.6 cm (08/05/23 4:12 PM) Weight 98.1 kg (08/05/23 4:12 PM) Body Mass Index [18.5-24.99 kg/m2] 34.92 kg/m2 *>HHI* (08/05/23 4:12 PM) Blood Pressure [90-138/55-84 mm Hg] 108/ 75mm Hg (08/05/23 4:12 PM) Blood pressure sites Arm, right (08/05/23 4:12 PM) Weight Obtained Via Standing scale (08/05/23 4:12 PM) Social History Social History Type Response Smoking Status Never (less than 100 in lifetime) entered on: 03/11/23 Sex Patient Care team information Care Team Personnel Name: Not on Staff, PCP Position: S Physician (General Medicine) Member Role: PCP Care Team Related Persons Name: MARILYN ORELLANA BOY Address: [employer] Address: home [address] [place] [address] [place] Name: PRADIP CARLIN Address: home [address] [place] [address]
--- OUTSIDE RECORDS SUMMARY | 2024-04-03 11:20 | XMS_ITS | Continuity of Care Document ---
Author Organization [facility] Blanco [employer] [facility] Address [address] [place] [address], [address] [place] [address]- Care Team Providers Care Virginia Line Attendant Name Role Phone Not on Staff, PCP Primary Care Physician Unavail able [place] [facility] Date(s): 06/19/23 - 06/26/23 [facility] L[facility]ava [employer]abbP[employer] [facility] [address] [facility], 4th [place] [address]- Attending Physician: Luciano Lechuga MD Referring Physician: Anna Heath MD Allergies, Adverse Reactions, Alerts No Known [...] oldest [Reference Range]: 1 Height 167.6 cm (06/19/23 3:34 PM) Weight 94.27 kg (06/19/23 3:34 PM) Body Mass Index [18.5-24.99 kg/m2] 33.56 kg/m2 *>HHI* (06/19/23 3:34 PM) Blood Pressure [90-138/55-84 mm Hg] 109/ 62mm Hg (06/19/23 3:34 PM) Blood pressure sites Arm, right (06/19/23 3:34 PM) Social History Social History Type Response Smoking Status Never (less than 100 in lifetime) entered on: 03/11/23 Sex Patient Care team information Care Team Personnel Name: Not on Staff, PCP Position: [facility] Physician (General Medicine) Member Role: PCP Care Team Related Persons Name: PRADIP CARLIN Address: home [address] [place] [address]
--- OUTSIDE RECORDS SUMMARY | 2024-04-03 11:20 | XMS_ITS | Continuity of Care Document ---
Author Organization [facility] Blanco [employer] [facility] Address [address] [facility], 4t [place] [address]- Care Team Providers Care Marzipan Molder Name Role Phone Not on Staff, PCP Primary Care Physician Unavail able [place] [facility] 07/18/23 - 07/25/23 [facility] Ramuava [employer] [facility] [address] [facility], 4th [place] [address]- Attending Physician: Fili Mensah MD Referring Physician: Evie Momin MD Allergies, Adverse Reactions, Alerts No Known [...] oldest [Reference Range]: 1 Height 167.6 cm (07/18/23 3:41 PM) Weight 94.54 kg (07/18/23 3:41 PM) Body Mass Index [18.5-24.99 kg/m2] 33.66 kg/m2 *>HHI* (07/18/23 3:41 PM) Blood Pressure [90-138/55-84 mm Hg] 100/ 60mm Hg (07/18/23 3:41 PM) Blood pressure sites Arm, left (07/18/23 3:41 PM) Weight Obtained Via Standing scale (07/18/23 3:41 PM) Social History Social History Type Response Smoking Status Never (less than 100 in lifetime) entered on: 03/11/23 Sex Patient Care team information Care Team Personnel Name: Not on Staff, PCP Position: [facility] Physician (General Medicine) Member Role: PCP Care Team Related Persons Name: PRADIP CARLIN Address: home [address] [place] [address]
--- OUTSIDE RECORDS SUMMARY | 2024-04-03 11:20 | XMS_ITS | Continuity of Care Document ---
Author Organization [facility] Ramuava melo[employer]ti[employer] Address [address] [place] [address], [address] [place] [address]- Care Team Providers Care Roll Cutting Operator Name Role Phone Not on Staff, PCP Primary Care Physician Unavail able Encounter [facility] Date(s): 06/04/23 - 06/11/23 [facility] Ramuava BabbRuck.uss Prepared Response [address] [facility], [address]th [place] [address]- Attending Physician: Gene Cormier MD Referring Physician: Anna Heath MD Allergies, [...] oldest [Reference Range]: 1 Height 167.6 cm (06/04/23 4:52 PM) Weight 90.95 kg (06/04/23 4:52 PM) Body Mass Index [18.5-24.99 kg/m2] 32.38 kg/m2 *>HHI* (06/04/23 4:52 PM) Blood Pressure [90-138/55-84 mm Hg] 126/ 73mm Hg (06/04/23 4:52 PM) Blood pressure sites Arm, right (06/04/23 4:52 PM) Weight Obtained Via Standing scale (06/04/23 4:52 PM) Social History Social History Type Response Smoking Status Never (less than 100 in lifetime) entered on: 03/11/23 Sex Patient Care team information Care Team Personnel Name: Not on Staff, PCP Position: S Physician (General Medicine) Member Role: PCP Care Team Related Persons Name: PRADIP CARLIN Address: home [address] [place] [address]
--- OUTSIDE RECORDS SUMMARY | 2024-04-03 11:20 | XMS_ITS | Continuity of Care Document ---
Author Organization [facility] Blanco [employer] [facility] Address [address] [place] [address], [address] [place] [address]- Care Team Providers Care Political Science Chair Name Role Phone Not on Staff, PCP Primary Care Physician Unavail able [place] [facility] Date(s): 03/11/23 - 03/18/23 [facility] Ramu Castrejons [facility] [address] [facility], [address] [place] [address]- Attending Physician: Felipe LEVI, Namrata Mera Referring Physician: Not on Staff, Referring MD Medications PNV Plus By Mouth, Daily, 0 [...] opioid drug. Start Date: 03/11/23 Status: Ordered Procedures Procedure Date Related Diagnosis Body Site Status Trego tooth 2019 Completed Vital Signs Most recent to oldest [Reference Range]: 1 Height 167.6 cm (03/11/23 11:01 AM) Social History Social History Type Response Smoking Status Never (less than 100 in lifetime) entered on: 03/11/23 Sex Laboratory * Event Display: Laboratory Result Scanned Authored Date: [id number] Patient Care team information Care Team Personnel Name: Not on Staff, PCP Position[facility] Physician (General Medicine) Member Role: PCP Care Team Related Persons Name: RAEGAN PRADIP Address: home [address] [place] [address]
--- OUTSIDE RECORDS SUMMARY | 2024-04-03 11:20 | XMS_ITS | Continuity of Care Document ---
Author Organization [facility] Blanco mel[employer]lele [employer]el[employer] [facility] Address [address] [place] [address], [address] [place] [address]- Care Team Providers Care Occupational Health Coordinator Name Role Phone Not on Staff, PCP Primary Care Physician Unavail able Encounter [facility] Date(s): 08/26/23 - 09/25/23 [facility] Ramu [employer] [facility] [address] [facility], 4th Floor [place], [place] [address] Attending Physician: Debi Lopez Admitting Physician: AdmDebi storey Referring Physician: AdmtrDebi Allergies, Adverse Reactions, Alerts No Known Allergies Immunizations Given and Recorded Vaccine Date Status Refusal Reason influenza virus vaccine, inactivated 1 07/29/23 Gi lilliam tetanus/diphtheria/pertussis, acel(Tdap) 05/20/23 Given 1Result Comment: [07/29/2023] [id number] Medications Albuterol (Eqv-ProAir HFA) 90 mcg/inh inhalation aerosol 2 puffs, Inhalation, Every 6 hours, # 8.5 Gm, 1 Refills, Maintenance, 04/17/23 11:11:00 EDT, [facility]/pharmacy #[id number], Partial fill upon patient request [...] 15:32:00 EDT, Route to Pharmacy Electronically, [facility]/pharmacy #[id number], Partial fill upon patient request if the prescriptio... Start Date: 08/10/23 Status: Ordered etonogestrel 68 mg subcutaneous implant 1 each = 68 mg, Intradermal, pharmaceutical analyst to Procedure, 0 Refills, Maintenance, 08/10/23 15:37:00 EDT, Im[facility], Partial fill upon patient request if the prescription is for a schedule II opioid drug. Start Date: 08/10/23 Status: Ordered ferrous sulfate 325 mg oral tablet 1 tablet = 325 mg, By Mouth, 2 times a day, # 60 tablet, 1 Refills, Maintenance, 08/10/23 15:32:00 EDT, Tablet, [facility]/pharmacy #[id number], Partial fill upon patient request [...] PRADIP BARROW Address: [employer] Address: home [address] [place] [address] [place] Name: PRADIP CARLIN Address: home [address] [place] [address]
--- OUTSIDE RECORDS SUMMARY | 2024-04-03 11:20 | XMS_ITS | Continuity of Care Document ---
Author Organization [facility] Ramu meloCAST[employer] [facility] Address [address] [place] [address], [address] [place] [address]- Care Team Providers Care Multimedia Specialist Name Role Phone Not on Staff, PCP Primary Care Physician Unavail able Encounter [place] Date(s): 03/11/23 - 04/10/23 [facility] Ramuava BabbCASTTs [facility] [address] [facility], [address]th [place] [address]- Allergies, Adverse Reactions, Alerts No Known Allergies Medications Albuterol (Eqv-ProAir HFA) 90 mcg/inh inhalation aerosol 2 puffs, Inhalation, Every 6 hours, # 8.5 Gm, 1 Refills, Maintenance, 03/22/23 13:31:00 EDT, [id number], Partial fill upon patient [...] Personnel Name: Not on Staff, PCP Position: [facility] Physician (General Medicine) Member Role: PCP Care Team Related Persons Name: PRADIP CARLIN Address: home [address] [place] [address]
--- OUTSIDE RECORDS SUMMARY | 2024-04-03 11:20 | XMS_ITS | Continuity of Care Document ---
Author Organization [facility] [employer] [facility] Address [address] [place] [address], [address] [place] [address]- Care Team Providers Care Glass Engraver Name Role Phone Not on Staff, PCP Primary Care Physician Unavail able Encounter [facility] Date(s): 05/14/23 - 09/11/23 [facility] [employer] [facility] [address] [facility], [address]th [place] [address]- Attending Physician: Jared LEVI [OB], Sasha Reyes Allergies, Adverse Reactions, Alerts No Known Allergies Immunizations Given and Recorded Vaccine Date Status Refusal Reason influenza virus vaccine, inactivated 1 07/29/23 Gi lilliam tetanus/diphtheria/pertussis, acel(Tdap) 05/20/23 Given 1Result Comment: [07/29/2023] [id number] Medications Albuterol (Eqv-ProAir HFA) 90 mcg/inh inhalation aerosol 2 puffs, Inhalation, Every 6 hours, # 8.5 Gm, 1 Refills, Maintenance, 04/17/23 11:11:00 EDT, [facility]/pharmacy #[id number], Partial fill upon patient [...] 08/10/23 15:32:00 EDT, Route to Pharmacy Electronically, [facility]/pharmacy #[id number], Partial fill upon patient request if the prescriptio... Start Date: 08/10/23 Status: Ordered etonogestrel 68 mg subcutaneous implant 1 each = 68 mg, Intradermal, weight caller to Procedure, 0 Refills, Maintenance, 08/10/23 15:37:00 EDT, Implant, Partial fill upon patient request if the prescription is for a schedule II opioid drug. Start Date: 08/10/23 Status: Ordered ferrous sulfate 325 mg oral tablet 1 tablet = 325 mg, By Mouth, 2 times a day, # 60 tablet, 1 Refills, Maintenance, 08/10/23 15:32:00 EDT, Tablet, [facility]/pharmacy #[id number], Partial fill upon patient [...] Name: PRADIP BARROW Address: AMERCN Address: home [address] [place] [id number] [place] Name: PRADIP CARLIN Address: home [address] [place] [id number]
--- OUTSIDE RECORDS SUMMARY | 2024-04-03 11:20 | XMS_ITS | Continuity of Care Document ---
Author Organization [facility] [employer] Address [address] [place] [address], [address] [place] [address]- Care Team Providers Care Furnace Fitter Name Role Phone Not on Staff, PCP Primary Care Physician Unavail able [place] [facility] [id number] Date(s): 05/06/23 - 05/13/23 [facility] [employer] [address] [facility], [address] [place] [address]- Attending Physician: Namrata Wang MD Referring Physician: Alyson Moseley CNM Allergies, Adverse Reactions, Alerts No Known Allergies Medications Albuterol (Eqv-ProAir HFA) 90 mcg/inh inhalation aerosol 2 puffs, Inhalation, Every 6 hours, # 8.5 Gm, 1 Refills, Maintenance, 04/17/23 11:11:00 EDT, [facility]/pharmacy #[id number], Partial fill upon patient request if the prescription is for a schedule II opioid drug., 2 puffs Inhalation Every 6 hours, 167.6, cm, 052... Start Date: 04/17/23 Status: Ordered MiraLax oral [...] oldest [Reference Range]: 1 Height 167.6 cm (05/06/23 4:47 PM) Weight 87.72 kg (05/06/23 4:47 PM) Body Mass Index [18.5-24.99 kg/m2] 31.23 kg/m2 *>HHI* (05/06/23 4:47 PM) Blood Pressure [90-138/55-84 mm Hg] 114/ 56mm Hg (05/06/23 4:47 PM) Blood pressure sites Arm, right (05/06/23 4:47 PM) Weight Obtained Via Standing scale (05/06/23 4:47 PM) Social History Social History Type Response Smoking Status Never (less than 100 in lifetime) entered on: 03/11/23 Sex Patient Care team information Care Team Personnel Name: Not on Staff, PCP Position: S Physician (General Medicine) Member Role: PCP Care Team Related Persons Name: PRADIP CARLIN Address: home [address] [place] [id number]
== END 2024-04-02 15:55 | disposition home or self-care (01) ==
LOC: HO.HWSM 13:52
PROVIDERS: Visit Provider Advanced Practice Midwife
DX: O92.29 Other disorders of breast associated with pregnancy and the puerperium (principal); Z97.5 Presence of (intrauterine) contraceptive device
CPT/HCPCS: 99213

== ENCOUNTER → 2024-04-02 13:52 | Outpatient (BNVA) | payer BC, SELFPAY | PROVIDERS: Visit Provider Advanced Practice Midwife ==

== ENCOUNTER 2024-04-13 14:21 | Outpatient (REF) | payer BC, SELFPAY ==
--- NOTE | ~2024-04-13 | US_ITS ---
EXAMINATION: US DIAGNOSTIC ULTRASOUND BREAST, LEFT CLINICAL INFORMATION: Lactating 33-year-old female, no palpable abnormality, however complaining of medial left breast pain x2 months. No evidence of mastoiditis or infection.. COMPARISON: No prior ultrasound. No prior mammography. TECHNIQUE: Ultrasound of the left breast is performed with real-time verduzco scale imaging and color Doppler. Attention was given to the 6:00 the 12:00 axis in the region of medial breast pain. FINDINGS: There is no suspicious mass, abnormal shadowing, architectural distortion, or cystic abnormality detected. There is normal developed lobular tissue present, consistent with actively lactating tissue. No dilated ducts noted. There is no abnormality present to explain presence of medial breast pain. Results are provided to the patient at time of visit by the technologist. US/US breast LT limited mamm only IMPRESSION: Normal developed lobular breast tissue identified. No abnormality suspicious for malignancy. No sonographic abnormality to explain left medial breast pain. Recommend clinical management and follow-up. ASSESSMENT: BI-RADS 2: Benign RECOMMENDATION: 1. Patient should be managed based on the clinical impression.
== END 2024-04-13 14:22 | disposition home or self-care (01) ==
LOC: HO.MAMMO 14:21
PROVIDERS: Visit Provider Advanced Practice Midwife
DX: O92.29 Other disorders of breast associated with pregnancy and the puerperium (principal)
CPT/HCPCS: 76642

== ENCOUNTER → 2024-04-13 15:00 | Outpatient (BNV) | payer BC, SELFPAY | PROVIDERS: Visit Provider Radiology Diagnostic Radiology | DX: N64.4 Mastodynia (principal) | CPT/HCPCS: 76642 ==

== ENCOUNTER 2024-04-21 15:43 | Outpatient (AMB) | payer BC, SELFPAY ==
--- NOTE | 2024-04-21 15:44 | A.OFFVIS_ITS ---
Vital Signs 04/21/24 15:55 Height 5 ft 6 in Weight 188 lb BMI 30.3 BP 111/75 Blood Pressure Location Lt brachial Position Sitting Pulse 106 H Intake Visit Reasons: Left breast poss mastitis-nursing 8 mth old Intake Note: Patient is seen in office for evaluation and treatment of left breast mastitis. Pt c/o: pain left breast, onset 2 months, pain is intense and radiates down the arm, study specialist felt a lump, currently stop nursing due to lump would like to resume unsure if she is able to, also has left abdomen pain, admits to nausea, no appetite, and recent weight loss Electrical Test Technician Required: No Accompanied by: Self / Same As Patient Allergies No Known Allergies [No Known Allergies*] Allergy (Verified 04/21/24 15:54) Medication List - Last Reconciled 04/23/24 by Kalen Aquino MD etonogestrel (Nexplanon) subdermal HPI Comments Details: 33-year-old female patient presenting with complaints of left breast pain, being evaluated for possible mastitis. She is recently and wishes to continue nursing her 8-month-old son. She reports a 2 month history of intense pain mainly in the upper inner quadrant of the left breast with some radiation down into the arm. A recent senior strategy analyst examination felt a lump. She stopped nursing but continues to pump and discard her milk. She was scheduled for mammogram however this was canceled due to her continued . Breast ultrasound performed on 04/13/2024 revealed no sonographic suspicious abnormality in the left breast. She denies a previous history of breast problems or breast surgery. Her family history is negative for breast cancer. She currently does not feel any palpable lump, only the discomfort. 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 Sexual orientation: Straight/Heterosexual Gender identity: Female Female Reproductive History Menstrual Age of Menarche: 16 Review of Systems Const All systems reviewed & are unremarkable except as noted in HPI and below Physical Exam Vital Signs: Last Vital Signs Pulse 106 H 04/21/24 15:55 BP 111/75 04/21/24 15:55 BMI result Body Mass Index 30.3 Const General: cooperative and no acute distress Nutritional Appearance: well nourished Orientation/consciousness: patient oriented x3 Limitations: no limitations HEENT Head: Yes normocephalic and Yes atraumatic Ears: hearing grossly normal bilaterally Chest Other: Left breast: No skin change, no nipple retraction, no nipple discharge, no palpable mass, no enlarged lymph nodes. Tenderness is elicited in the upper inner quadrant radiating laterally. Pain is felt mostly with deep palpation. No palpable mass appreciated in this area. Pain may be related to pectoralis muscle rather than breast tissue. Right breast: No skin change, no nipple retraction, no nipple discharge, no palpable mass, no enlarged lymph nodes Resp Effort & Inspection: normal respiratory effort, no audible wheezes, no cough and no respiratory distress Cardio Jugular venous distension: no JVD GI Inspection: Yes normal to inspection Skin Other: Warm, dry, no rash Neuro General: patient oriented x3 Extrem General: Yes no clubbing, cyanosis or edema Assessment & Plan Assessment & Plan (1) Bloody stool: Code(s): K92.1 - Melena Category: Medical Plan: Patient reports several episodes of bloody stool and melanotic stool which has persisted. I recommended gastroenterology consultation. A referral has been sent. (2) Mastodynia of left breast: Code(s): N64.4 - Mastodynia Category: Medical Plan: 33-year-old female patient with complaints of left breast pain initially felt to have a palpable mass. Pain extends into the left arm. Examination today revealed no suspicious findings in either breast with no overlying skin changes to indicate an underlying abscess. Ultrasound also was negative for mass or abs cess collection. Routine follow-up is recommended with no surgical intervention at this time. She may resume nursing as there has currently no evidence of infection. Orders: Referrals Gastroenterology Referral K92.1 - Melena Coding Level of Care Code New Pt Level 4 (83401) Diagnoses Bloody stool K92.1 Mastodynia of left breast N64.4
[2024-04-21 15:55] VITALS: BP 111/75; PULSE 106; BMI 30.3
== END 2024-04-21 16:07 | disposition home or self-care (01) ==
PROVIDERS: Referring Provider Advanced Practice Midwife; Visit Provider Surgery
DX: K92.1 Melena (principal); N64.4 Mastodynia
CPT/HCPCS: 99203

== ENCOUNTER → 2024-04-21 15:43 | Outpatient (BNVA) | payer BC, SELFPAY | PROVIDERS: Referring Provider Advanced Practice Midwife; Visit Provider Surgery ==

== ENCOUNTER 2024-04-24 19:09 | Emergency (ER) | payer BC, SELFPAY ==
[2024-04-24 19:10] VITALS: BP 128/89; PULSE 102; RESP 18; TEMP 36.6; O2SAT 99; BMI 30.2
--- NOTE | 2024-04-24 19:11 | ED_ITS ---
HPI - General Adult General Chief complaint: Abdominal Pain Stated complaint: abd pain, bloody stool, feeling faint Time Seen by Provider: 04/24/24 22:51 Source: patient Mode of arrival: ambulatory Limitations: no limitations History of Present Illness ED Provider: danette FINK narrative: Patient with multiple complaints complaining of diffuse abdominal pain more on the left side for last 2 months nausea bright red blood in his stool history of constipation says she lost 5 lb in last 1 week supposed to see insulation inspector Related Data Home Medications ?Medication ?Instructions ?Recorded ?Confirmed etonogestrel 68 mg subdermal subdermal 04/02/24 04/23/24 implant (Nexplanon) Previous Rx's ?Medication ?Instructions ?Recorded dicyclomine 20 mg tablet 20 mg PO BID-TID PRN abdominal 04/24/24 pain #20 tabs Allergies Allergy/AdvReac Type Severity Reaction Status Date / Time No Known Allergies Allergy Verified 04/24/24 19:16 [No Known Allergies*] Review of Systems 2 Review of Systems: Yes all other systems are reviewed and are negative PMFSH Past Medical History Medical History Subchorionic hemorrhage in first trimester Coccygeal pain Hematuria Family History Family History Paternal Grandfather Alzheimer's dementia Social History Social History Household Members: Spouse and Children Housing: House Are you a primary child care nurse to a significant other at home: No Do you presently have visiting nurse or other home services: No Alcohol intake: never Patient Tobacco Use Status: Never used Tobacco Substance Use Type: Marijuana Agree to transfusion: Yes Advance Directives: No Advance Directives Information Provided: No Do you have a plan to hurt others: No Plan service: No 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al status: unemployed 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 Oriented X3. No acute distress. Obese anxious Eyes: PERRLA, no pallor or icterus ENT: Pharynx normal. Oral Mucosa moist Neck: Normal inspection. Neck supple. CVS: Normal heart rate and rhythm. Pulses normal. Respiratory: No respiratory distress. Equal air entry bilateral, no wheezing/rales/rhonchi Abdomen: Soft and mild left-sided tenderness no rebound tenderness or guarding Bowel sounds are present, no mass palpable, no CVA tenderness Skin: Skin warm and dry. Normal skin color. Normal skin turgor. Extremities: No lower extremity edema. No calf tenderness rectal: Brown stool occult blood+ Neuro: Oriented X 3. No motor deficit. No sensory deficit.No cerebellar signs , cranial nerves II-XII intact Course Course Course Narrative: RME performed by Kelly Ramirez PA-C. Patient is a 33 year old assigned female at presenting to the emergency department with fatigue, nausea, vomiting, and lack of appetite. Patient states that she has been waiting months to get into a GI doctor but tonight she had enough and felt like she was fainting. Detailed physical exam and review of systems are deferred to the multifocal button generator. EKG, labs, and swabs ordered. Patient placed back in the waiting room pending room availability and results. Medications Administered Discontinued Medications Generic Name Dose Route Start Last Admin Trade Name Freq PRN Reason Stop Dose Admin Dicyclomine HCl 20 mg 04/24/24 23:09 04/24/24 23:14 Dicyclomine Hcl 10 Mg Capsule PO 04/24/24 23:10 20 mg ONCE ONE Administration Medical Decision Making Medical Decision Making [facility] Narrative: Patient has chronic abdominal pain nonspecific with multiple complaints likely anxiety says that has blood in the stool but guaiac test was negative no hemorrhoids palpable patient advised to follow up with PCP likely as IBS Differential Diagnosis Differential Diagnoses: The differential diagnosis associated with the presentation includes IBS/hemorrhoid/anxiety Admission/Observation Consideration of admission/observation: Escalation of care including admission/observation considered Lab Data [facility] Lab Attestation statement: I reviewed the patient's lab results. 04/24/24 19:40 04/24/24 19:40 Labs: Lab Results 04/24/24 04/24/24 04/24/24 Range/Units 19:33 19:40 23:11 WBC 5.4 (4.8-10.8) X10*3/uL RBC 4.75 (4.20-5.50) X10*6/uL Hgb 13.6 (12.0-16.0) g/dl Hct 39.2 (37.0-47.0) % MCV 82.5 (80.0-98.0) fL MCH 28.6 (27.0-33.0) pg MCHC 34.7 (31.0-35.0) g/dl RDW 13.2 (11.0-16.0) % Plt Count 325 (160-400) X10*3/uL MPV 8.5 L (9.4-12.3) fL Immature Gran % (Auto) 0.2 (0.0-0.4) % Neut % (Auto) 45.2 (45-73) % Lymph % (Auto) 45.3 H (20-40) % Twiggs % (Auto) 6.9 (2-11) % Eos % (Auto) 1.7 (0-4) % Baso % (Auto) 0.7 (0-2) % Lymph # (Auto) 2.4 (1.2-4.9) X10*3/uL Twiggs # (Auto) 0.4 (0.1-1.2) X10*3/uL Eos # (Auto) 0.1 (0.0-0.4) X10*3/uL Baso # (Auto) 0.0 (0.0-0.2) X10*3/uL Abs Immat Gran (auto) 0.01 (0.00-0.03) X10*3/uL Absolute Neuts (auto) 2.4 (2.0-8.3) x10*3/uL Absolute Nucleated RBC 0.000 (0.0-0.012) X10*3/uL Nucleated RBC % (auto) 0.0 (0.0-0.2) /100WBC Sodium 140 (135-145) mmol/L Potassium 3.1 L (3.3-5.1) mmol/L Chloride 108 (96-108) mmol/L Carbon Dioxide 21 L (22-29) mmol/L Anion Gap 14 (12-20) BUN 14 (9-16) mg/dL Creatinine 0.80 (0.5-1.4) mg/dL Estim Creat Clear Calc 111.8 Estimated GFR > 60 Random Glucose 128 H (60-115) mg/dL Calcium 9.4 (8.4-10.2) mg/dL Magnesium 1.8 (1.6-2.6) mg/dL Total Bilirubin 0.9 (0.0-1.0) mg/dL AST 19 (5-31) U/L ALT 23 (0-31) U/L Alkaline Phosphatase 54 (39-117) U/L Troponin I High Sens < 2.7 (<3.5-17.0) ng/L Total Protein 8.3 H (6.5-8.0) g/dL Albumin 4.7 (3.5-5.0) g/dL Beta HCG, Quant < 2 mIU/mL Urine Color Dark Yellow Urine Appearance Cloudy Urine pH 5.5 (5.0-9.0) Ur Specific Dixon >= 1.030 H (1.005-1.025) Urine Protein 30 (1+) H (Neg-Trace) mg/dL Urine Glucose (UA) Negative (Negative) mg/dL Urine Ketones Trace (Negative) mg/dL Urine Blood Large (3+) H (Negative) Urine Nitrite Negative (Negative) Ur Leukocyte Esterase Small (1+) H (Negative) Urine RBC >20 H (0-2) /HPF Urine WBC 21-50 H (0-5) /HPF Ur Squamous Epith Cells 11-20 (0-2) /HPF Urine Bacteria 2+ (None Seen) Hyaline Casts 0-2 (0-2) /LPF Stool Occult Blood NEGATIVE (NEGATIVE) Influenza Type A (PCR) NEGATIVE (Negative) Influenza Type B (PCR) NEGATIVE (Negative) RSV RNA Qual (PCR) NEGATIVE (Negative) SARS-CoV-2 RNA (RT-PCR) NEGATIVE (Negative) Discharge Plan Discharge Clinical Impression: Abdominal pain Patient Disposition: Home, Self-Care Instructions: Chronic Abdominal Pain (ED) Additional Instructions: Drink plenty of fluids Have increased fiber diet Follow up with PCP for further management Take dicyclomine for constant pain Prescriptions: New dicyclomine 20 mg tablet 20 mg PO BID-TID PRN (Reason: abdominal pain) Qty: 20 0RF No Action Nexplanon 68 mg implant subdermal Interventions: ED Discharge Assessment Last Done: 04/24/24 23:50 Discharge Date/Time: 04/24/24 23:50 Print Language: Japanese
--- NOTE | 2024-04-24 19:13 | ECG_ITS ---
Test Reason : FATIGUE Blood Pressure : / mmHG Vent. Rate : 086 BPM Atrial Rate : 086 BPM P-R Int : 152 ms QRS Dur : 096 ms QT Int : 358 ms P-R-T Axes : 009 088 030 degrees QTc Int : 428 ms Normal sinus rhythm Normal ECG No previous ECGs available Referred By: Kelly Ramirez Electronically Signed By:BEATRICE PELLETIER MD
[2024-04-24 19:45] LABS: MANUAL DIFF FLAG NO
[2024-04-24 19:52] LABS: Basophils Percent Auto 0.7 % (0-2); Eosinophils Absolute Auto 0.1 X10*3/uL (0.0-0.4); Eosinophils Percent Auto 1.7 % (0-4); Hematocrit 39.2 % (37.0-47.0); Hemoglobin 13.6 g/dl (12.0-16.0); Imm Gran Abs Auto 0.01 X10*3/uL (0.00-0.03); Imm Gran Pct Auto 0.2 % (0.0-0.4); Lymphocytes Absolute Auto 2.4 X10*3/uL (1.2-4.9); Lymphocytes Percent Auto 45.3 % (20-40); Mean Corpuscular HGB Conc 34.7 g/dl (31.0-35.0); Mean Corpuscular Hemoglobin 28.6 pg (27.0-33.0); Mean Corpuscular Volume 82.5 fL (80.0-98.0); Mean Platelet Volume 8.5 fL (9.4-12.3); Monocytes Absolute Auto 0.4 X10*3/uL (0.1-1.2); Monocytes Percent Auto 6.9 % (2-11); Neutrophils Absolute Auto 2.4 x10*3/uL (2.0-8.3); Neutrophils Percent Auto 45.2 % (45-73); Platelet Count 325 X10*3/uL (160-400); Red Blood Count 4.75 X10*6/uL (4.20-5.50); Red Cell Distribution Width 13.2 % (11.0-16.0); White Blood Count 5.4 X10*3/uL (4.8-10.8)
[2024-04-24 19:52] LABS: Appearance Urine Cloudy; Color Urine Dark Yellow; Glucose Urine UA Negative (Negative); Leukocyte Esterase Urine Small (1+) (Negative); Nitrite Urine Negative (Negative); PH 5.5 (5.0-9.0); Specific Gravity - Urine >= 1.030 (1.005-1.025); UMIC TRIGGER UACC YES; Urine Blood Large (3+) (Negative); Urine Ketones Trace mg/dL (Negative); Urine Protein 30 (1+) mg/dL (Neg-Trace)
[2024-04-24 20:00] VITALS: BP 114/79; PULSE 86; RESP 16; TEMP 36.8; O2SAT 96
--- OUTSIDE RECORDS SUMMARY | 2024-04-24 20:24 | XMS_ITS | Continuity of Care Document ---
Author Organization [facility] Address [address] [place] [address]- Care Team Providers Care Roulette Dealer Name Role Phone Rolo MATIAS, Michelle Hale Primary Care Physician [place] [facility] [place](s[place] 04/10/24 - 04/17/24 [facility] [address] [place] [address]- Encounter Diagnosis Melena(Discharge Diagnosis) - 04/10/24 Mild intermittent asthma(Discharge Diagnosis) - 04/10/[address] - inserted 08/10/23(Discharge Diagnosis) - 04/10/24 Obese class I(Discharge Diagnosis) - 04/10/24 Health care maintenance(Discharge Diagnosis) - 04/10/24 Attending Physician: Michelle Seth NP Allergies, Adverse Reactions, Alerts No Known Allergies Immunizations Given and Recorded Vaccine Date Status Refusal Reason influenza virus vaccine, inactivated 1 07/29/23 Gi lilliam tetanus/diphtheria/pertussis, acel(Tdap) 05/20/23 Given 1Result Comment: [07/29/2023] [id number] Medications Albuterol (Eqv-ProAir HFA) 90 mcg/inh inhalation aerosol 2 puffs, Inhalation, Every 6 hours, # 8.5 Gm, 3 Refills, Maintenance, 04/10/24 10:55:00 EDT, [facility]/pharmacy #[id number], Partial fill upon patient request if the prescription is for a schedule II opioid drug., 2 puffs Inhalation Every 6 hours, 168, cm, ... Start Date: 04/10/24 Status: Ordered etonogestrel 68 mg subcutaneous implant 1 each = 68 mg, Intradermal, call center agent to Procedure, 0 Refills, Maintenance, 08/10/23 15:37:00 EDT, Implant, Partial fill upon patient request if the prescription is for a schedule II opioid drug. Start Date: 08/10/23 Status: Ordered PNV Plus By Mouth, Daily, 0 Refills, Maintenance, 03/11/23 11:31:00 EDT, Partial fill upon patient request if the prescription is for a schedule II opioid drug. Start Date: 03/11/23 Status: Ordered Problem List Condition Confirmation Course Effective Dates Status Health St atus Informant Mild intermittent asthma Confirmed Active Obese class I Confirmed Active Nexplanon in place - inserted 08/10/23 Confirmed Active Diagnosis Diagnosis Type Effective Dates Health Status Clinical Service Informant Mild intermittent asthma Discharge Diagnosis 04/10/[address] - inserted 08/10/23 Discharge Diagnosis 04/10/24 Obese class I Discharge Diagnosis 04/10/24 Health care maintenance Discharge Diagnosis 04/10/24 Melena Discharge Diagnosis 04/10/24 Vital Signs Most recent to oldest [Reference Range]: 1 Height 168 cm (04/10/24 10:26 AM) Weight 88.2 kg (04/10/24 10:26 AM) Oxygen Saturation [94-100 %] 100 % (04/10/24 10:26 AM) Pulse Rate [55-90 bpm] 87 bpm (04/10/24 10:26 AM) Body Mass Index [18.5-24.99 kg/m2] 31.25 kg/m2 *>HHI* (04/10/24 10:26 AM) Blood Pressure [90-138/55-84 mm Hg] 123/ 79mm Hg (04/10/24 10:26 AM) Mode of Delivery (Oxygen) Room air (04/10/24 10:26 AM) Blood pressure sites Arm, left (04/10/24 10:26 AM) Weight Obtained Via Standing scale (04/10/24 10:26 AM) Social History Social History Type Response Smoking Status Never (less than 100 in lifetime) entered on: 03/11/23 Sex Patient Care team information Care Team Personnel Name: Rolo MATIAS, Michelle Hale Position: S PCO Associate Professional Member Role: PCP Address: Address: [address] [place] [address]- Care Team Related Persons Name: PRADIP BARROW Address: AMER[employer] Address: home [address] [place] [id number] [place] Name: PRADIP CARLIN Address: home [address] [place] [address]
--- OUTSIDE RECORDS SUMMARY | 2024-04-24 20:25 | XMS_ITS | Continuity of Care Document ---
Author Organization [facility] [employer] Address [address] [place] [address], [address] [place] [address]- Care Team Providers Care Sports Marketing Internship Name Role Phone Not on Staff, PCP Primary Care Physician Unavail able Encounter [facility] [place] Date(s): 07/24/23 - 07/31/23 [facility] [employer] [facility] [address] [facility], [address] [place] [address]- Attending Physician: Not on Staff, Attending MD Referring Physician: Chasity Guerra Allergies, Adverse Reactions, Alerts No Known Allergies Immunizations Given and Recorded Vaccine Date Status Refusal Reason influenza virus vaccine, inactivated 1 07/29/23 Gi lilliam tetanus/diphtheria/pertussis, acel(Tdap) 05/20/23 Given 1Result Comment: [07/29/2023] [id number] Medications Albuterol (Eqv-ProAir HFA) 90 mcg/inh inhalation [...] oldest [Reference Range]: 1 Height 167.6 cm (07/24/23 4:28 PM) Weight 96.36 kg (07/24/23 4:28 PM) Body Mass Index [18.5-24.99 kg/m2] 34.3 kg/m2 *>HHI* (07/24/23 4:28 PM) Blood Pressure [90-138/55-84 mm Hg] 104/ 63mm Hg (07/24/23 4:28 PM) Blood pressure sites Arm, left (07/24/23 4:28 PM) Weight Obtained Via Standing scale (07/24/23 4:28 PM) Social History Social History Type Response Smoking Status Never (less than 100 in lifetime) entered on: 03/11/23 Sex Patient Care team information Care Team Personnel Name: Not on Staff, PCP Position: S Physician (General Medicine) Member Role: PCP Care Team Related Persons Name: PRADIP CARLIN Address: home [address] [place] [id number]
--- OUTSIDE RECORDS SUMMARY | 2024-04-24 20:25 | XMS_ITS | Continuity of Care Document ---
Author Organization [facility] Address [address] [place] [address]- Care Team Providers Care Tank Tender Name Role Phone Not on Staff, PCP Primary Care Physician Unavail able [place] [facility] [place] - 04/18/[facility] [address] [place] [id number] Allergies, Adverse Reactions, Alerts No Known Allergies [...] Personnel Name: Not on Staff, PCP Position: [facility] Physician (General Medicine) Member Role: PCP Care Team Related Persons Name: PRADIP CARLIN Address: home [address] [place] [address]
[2024-04-24 20:28] LABS: Influenza A PCR NEGATIVE (Negative); Influenza B PCR NEGATIVE (Negative); Resp Syncy Virus RNA Qual PCR NEGATIVE (Negative); SARS COV2 PCR INHOUSE NEGATIVE (Negative)
[2024-04-24 20:43] LABS: Alanine Aminotransferase 23 U/L (0-31); Albumin Level 4.7 g/dL (3.5-5.0); Alkaline Phosphatase 54 U/L (39-117); Anion Gap 14 (12-20); Aspartate Amino Transferase 19 U/L (5-31); Bilirubin Total 0.9 mg/dL (0.0-1.0); Blood Urea Nitrogen 14 mg/dL (9-16); Calcium 9.4 mg/dL (8.4-10.2); Carbon Dioxide 21 mmol/L (22-29); Chloride 108 mmol/L (96-108); Creatinine Clr Calc Pharmacy 111.8; Estimated Glomerular Filt Rate > 60; Glucose Random 128 mg/dL (60-115); HCG Quantitative < 2 mIU/mL; Magnesium 1.8 mg/dL (1.6-2.6); Potassium 3.1 mmol/L (3.3-5.1); Sodium 140 mmol/L (135-145); Total Protein 8.3 g/dL (6.5-8.0); Troponin-I High Sensitivity < 2.7 ng/L (<3.5-17.0)
[2024-04-24 21:18] LABS: Bacteria Urine 2+ (None Seen); Hyaline Casts Urine 0-2 /LPF (0-2); RBC Urine >20 /HPF (0-2); UACC Culture Trigger YES; WBC Urine 21-50 /HPF (0-5)
[2024-04-24 22:00] VITALS: BP 108/77; PULSE 82; RESP 15; TEMP 36.9; O2SAT 97
[2024-04-24] MEDS: Dicyclomine HCl 10 MG CAPSULE 20 MG PO (23:14)
[2024-04-24 23:16] LABS: OBS Int Ctl Valid YES; OBS1 NEGATIVE (NEGATIVE)
[2024-04-24 23:50] VITALS: BP 108/77; PULSE 82; RESP 15; TEMP 36.9; O2SAT 97
== END 2024-04-24 23:50 | disposition home or self-care (01) ==
PROVIDERS: Physician Assistant Medical; Emergency Provider Internal Medicine; PCP Nurse Practitioner Family
DX: K92.1 Melena (principal); R10.32 Left lower quadrant pain; R11.0 Nausea; R53.83 Other fatigue; R10.2 Pelvic and perineal pain; Z03.818 Encounter for observation for suspected exposure to other biological agents ruled out; Z79.899 Other long term (current) drug therapy
CPT/HCPCS: 0241U; 80053; 81001; 81003; 82272; 83735; 84484; 84702; 85025; 87086; 93005; 99283; 99284

== ENCOUNTER → 2024-04-24 19:13 | Outpatient (BNV) | payer BC, SELFPAY | PROVIDERS: Emergency Provider Internal Medicine; PCP Nurse Practitioner Family; Visit Provider Internal Medicine Cardiovascular Disease | DX: R53.83 Other fatigue (principal); R10.9 Unspecified abdominal pain | CPT/HCPCS: 93010 ==

== ENCOUNTER 2024-05-19 09:07 | Outpatient (AMB) | payer BC, SELFPAY ==
[2024-05-19 09:11] VITALS: BP 108/74; PULSE 100; BMI 29.2
--- NOTE | 2024-05-19 09:11 | A.OFFVIS_ITS ---
Vital Signs 05/19/24 09:11 Height 5 ft 6 in Weight 180 lb 12.465 oz BMI 29.2 BP 108/74 Blood Pressure Location Rt brachial Position Sitting Pulse 100 Intake Visit Reasons: Abdominal pain / rectal bleeding Intake Note: Patient in office today for rectal bleeding and abdominal pain. CC: Rectal bleeding, nausea, LUQ abdominal pain, and left chest pain. Pain 9/10 pain scale with onset of pain about 4 months ago, and pain is constant. She also reports weight loss. She states that she is prediabetic. Patient was seen in the ED on 04/24 with c/o abdominal pain, and was also seen by general surgery on 04/02. Insurance Claim Approver Required: No Accompanied by: Self / Same As Patient Allergies No Known Allergies [No Known Allergies*] Allergy (Verified 06/11/24 12:54) HPI HPI Abdominal pain / rectal bleeding: Details: Assessment & Plan (1) SI (sacroiliac) joint dysfunction: Code(s): M53.3 - Sacrococcygeal disorders, not elsewhere classified Plan: She is seeing a urologist for the hematuria, was not having her menses when she gave the urine. She also was referred for pelvic floor therapy via her [employer]. She does not have a PCP, and I advise her to get one. We review her labs which are otherwise unremarkable. I believe she has SI joint dysfxn/arthritis causing her perceived tailbone pain when she rises from sitting. Since there does not appear to be any GI problem to treat, I release her to find a PCP for further follow up. Laboratory Tests 04/24/24 19:40 WBC 5.4 Hgb 13.6 Hct 39.2 Plt Count 325 Estimated GFR > 60 Total Bilirubin 0.9 AST 19 ALT 23 Alkaline Phosphatase 54 Medical Decision Making [facility] Narrative: Patient has chronic abdominal pain nonspecific with multiple complaints likely anxiety says that has blood in the stool but guaiac test was negative no hemorrhoids palpable patient advised to follow up with PCP likely as IBS Differential Diagnosis Instructions: Chronic Abdominal Pain (ED) Additional Instructions: Drink plenty of fluids Have increased fiber diet Follow up with PCP for further management Take dicyclomine for constant pain Prescriptions: New dicyclomine 20 mg tablet 20 mg PO BID-TID PRN (Reason: abdominal pain) Qty: 20 0RF TODAY'S VISIT She has been having rectal bleeding, having black stools for a week, then it became pale/yellow with blood intertwined. Now she sees a brown discharge. She is having pain in the left quad tracing a colon path. She can't lay on her left side. It is constant as a subtle, constant pain. She can't press on the left side. She has not been constipated since she gave to her son (Yahir). That was 9 mos ago, but this has been mostly for 4 mos. She was seen at the ER but was only given bentyl which she has not taken. She is also fatigued and having hot flashes. She is losing weight w/o trying, about 30 lbs. She is not currently breast feeding, she had to stop r/t pain. She was recently dx'ed with prediabetes and she is trying to eat better. She had a period of 2 weeks w/o a good appetite, but now this is returning and is improving. She denies any problem getting an appt. She does not know why this was in the ER note. She has a FHX of polyps and PUD. No GB or pancreatic disease. TSH at [facility] running high at 0.4 and high normal T4, this bears watching. ROV 4 weeks. will tx empirically with augmentin. [facility] Medical History Encounter for annual routine gynecological examination Encounter for management and injection of depo-Provera Subchorionic hemorrhage in first trimester Coccygeal pain Hematuria Surgical History No pertinent past surgical history Family History Paternal Grandfather Alzheimer's dementia Paternal Aunt Breast cancer Maternal Aunt Colon polyps Paternal Grandfather Stomach ulcer Social History Household Members: Spouse and Children Housing: House Are you a primary rn urgent care to a significant other at home: No Do you presently have visiting nurse or other home services: No Alcohol intake: never Patient Tobacco Use Status: Never used Tobacco Substance Use Type: Marijuana Agree to transfusion: Yes service: No 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al status: unemployed 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 Sexual orientation: Straight/Heterosexual Gender identity: Female Female Reproductive History Menstrual Age of Menarche: 16 Review of Systems Const Denies fatigue, Denies fever(s), Denies night sweats, Reports poor appetite and Reports weight loss Eyes Details: glasses Reports requires corrective lenses ENT Reports Normal hearing present, Denies dental pain, Denies dysphagia, Denies hearing loss, Denies mouth pain, Denies odynophagia, Denies throat swelling, Denies tongue swelling and Reports other (Dentition adequate) Card Reports no additional complaints Resp Reports no additional complaints GI Details: melena Reports abdominal pain, Denies melena, Denies bloating, Reports hematochezia, Denies constipation, Denies GI cramping, Denies dysphagia, Denies excessive flatus, Denies early satiety, Denies heartburn, Denies diarrhea, Denies nausea, Denies odynophagia, Denies vomiting and Denies hematemesis Skin/Breast Denies pruritus, Denies lesions, Denies rash and Denies jaundice Neuro Reports Normal hearing present and Denies Abnormal speech present Endo Denies fatigue Aller/Immun Denies throat swelling and Denies tongue swelling Physical Exam Vital Signs: Last Vital Signs Pulse 100 05/19/24 09:11 BP 108/74 05/19/24 09:11 BMI result Body Mass Index 29.2 Const General: cooperative, no acute distress, well developed and well groomed Nutritional Appearance: well nourished and overweight Orientation/consciousness: oriented to person, oriented to place and oriented to time Limitations: No language barrier HEENT Head: Yes normocephalic and Yes atraumatic Eyes General: appearance normal, both eyes and all related structures Pupils: Equal, round and reactive pupils present Neck Neck: Yes normal visual inspection and Yes no lymphadenopathy Thyroid: Thyroid normal Resp Effort & Inspection: normal respiratory effort and able to speak in complete sentences Auscultation: clear to auscultation bilaterally Cardio Rate: regular rate Rhythm: regular rhythm Heart sounds: Normal, physiologic split S2 sound present Peripheral pulses: radial pulses present and posterior tibial pulses present GI Inspection: No distended, No Abdominal panniculus present, Yes obesity and Yes striae Palpation (GI): Soft to palpation, Tenderness to palpation present (GI) (worse in the LLQ) in the LLQ, in the LUQ and periumbilically, no guarding, not rigid and No hepatosplenomegaly present Percussion: Yes normal to percussion Auscultation: normal bowel sounds Rectal Exam - Female: deferred Skin General skin exam: no rashes or lesions noted, turgor normal, skin not dry, no jaundice, No spider nevi and no striae Rashes: no rashes Nails: normal Neuro General: oriented to person, oriented to place and oriented to time Cranial nerves: Yes Equal, round and reactive pupils present and Yes Normal hearing present Speech: No Abnormal speech present Extrem General: Yes normal to inspection, No clubbing, No cyanosis and No edema Psych Appearance: grossly normal and well kempt Mental Status: mental status grossly normal Speech and movement: Normal speech and movement present Affect: normal affect Attitude: cooperative Thought process: Normal thought process present and not confabulating Thought content: Normal thought content present Insight: Fair insight present (Psych) and Limited insight present (Psych) Judgement: Fair judgement present (Psych) and Limited judgement present (Psych) Results Reviewed Results Reviewed: Laboratory Tests 04/24/24 19:40 WBC 5.4 Hgb 13.6 Hct 39.2 Plt Count 325 Estimated GFR > 60 Total Bilirubin 0.9 AST 19 ALT 23 Alkaline Phosphatase 54 Medical Decision Making MDM Narrative: Patient has chronic abdominal pain nonspecific with multiple complaints likely anxiety says that has blood in the stool but guaiac test was negative no hemorrhoids palpable patient advised to follow up with PCP likely as IBS Differential Diagnosis Instructions: Chronic Abdominal Pain (ED) Additional Instructions: Drink plenty of fluids Have increased fiber diet Follow up with PCP for further management Take dicyclomine for constant pain Prescriptions: New dicyclomine 20 mg tablet 20 mg PO BID-TID PRN (Reason: abdominal pain) Qty: 20 0RF Assessment & Plan Assessment & Plan (1) Bloody stool: Code(s): K92.1 - Melena Category: Medical (2) Left sided abdominal pain: Comment: upper and lower left abd Code(s): R10.9 - Unspecified abdominal pain Category: Medical (3) Diverticulitis: Code(s): K57.92 - Diverticulitis of intestine, part unspecified, without perforation or abscess without bleeding Category: Medical Plan She has been having rectal bleeding, having black stools for a week, then it became pale/yellow with blood intertwined. Now she sees a brown discharge. She is having pain in the left quad tracing a colon path. She can't lay on her left side. It is constant as a subtle, constant pain. She can't press on the left side. She has not been constipated since she gave to her son (Yahir). That was 9 mos ago, but this has been mostly for 4 mos. She was seen at the ER but was only given bentyl which she has not taken. She is also fatigued and having hot flashes. She is losing weight w/o trying, about 30 lbs. She is not currently breast feeding, she had to stop r/t pain. She was recently dx'ed with prediabetes and she is trying to eat better. She had a period of 2 weeks w/o a good appetite, but now this is returning and is improving. She denies any problem getting an appt. She does not know why this was in the ER note. She has a FHX of polyps and PUD. No GB or pancreatic disease. TSH at [facility] running high at 0.4 and high normal T4, this bears watching. ROV 4 weeks. will tx empirically with augmentin. Orders: Orders EGD/[place] Combo - GI Use Only 05/19/24 R10.9 - Unspecified abdominal pain CT abdomen pelvis w IV con 05/19/24 R10.9 - Unspecified abdominal pain Ova and Parasite 05/20/24 R10.9 - Unspecified abdominal pain Medications: New peg 3350-electrolytes 236-22.74-6.74 -5.86 gram (Golytely) until fecal effluent is clear; do not exceed a total volume of 2,000 mL 240 mL PO Q10M 4,000 mL 0RF 1 day Z12.11 - Encounter for screening for malignant neoplasm of colon bisacodyl (Dulcolax (bisacodyl)) 10 mg (2 x 5 mg) PO BEDTIME 4 tabs 0RF 2 days amoxicillin-pot clavulanate 875-125 mg 1 tab PO BID 28 tabs 0RF 14 days R10.9 - Unspecified abdominal pain, K57.92 - Diverticulitis of intestine, part unspecified, without perforation or abscess without bleeding Coding Level of Care Code Est Pt Level 4 (12691) Diagnoses Bloody stool K92.1 Left sided abdominal pain R10.9 Diverticulitis K57.92 Time Spent (min) 37
== END 2024-05-19 11:05 | disposition home or self-care (01) ==
PROVIDERS: PCP Nurse Practitioner Family; Visit Provider Nurse Practitioner
DX: K92.1 Melena (principal); R10.9 Unspecified abdominal pain; K57.92 Diverticulitis of intestine, part unspecified, without perforation or abscess without bleeding
CPT/HCPCS: 99214

== ENCOUNTER → 2024-05-19 09:07 | Outpatient (BNVA) | payer BC, SELFPAY | PROVIDERS: PCP Nurse Practitioner Family; Visit Provider Nurse Practitioner ==

== ENCOUNTER 2024-05-20 15:48 | Outpatient (REF) | payer BC, SELFPAY | END 2024-05-20 15:49 | disposition home or self-care (01) | LOC: HO.LNP 15:48 | PROVIDERS: Visit Provider Nurse Practitioner | DX: R10.9 Unspecified abdominal pain (principal) | CPT/HCPCS: 87177; 87209 ==

== ENCOUNTER 2024-06-01 09:06 | Day surgery (SDC) | payer BC, SELFPAY ==
--- NOTE | 2024-05-29 09:56 | HO.ANESPROP2 ---
Documented by User: Ruma Driver NP 05/29/24 10:01 HPI - Anesthesia Eval Consult details Narrative: 33yo F for Upper Endoscopy and Colonoscopy PMFSH Active Problems Active Problems: All Active Problems Diverticulitis (Acute) Left sided abdominal pain (Acute) Mastodynia of left breast (Acute) Bloody stool (Acute) Nexplanon in place (Acute) mastalgia (Acute) Subchorionic hemorrhage in first trimester (Acute) care, subsequent in second trimester (Acute) Subchorionic hemorrhage (Acute) SI (sacroiliac) joint dysfunction (Acute) Nausea (Acute) Chronic idiopathic constipation (Acute) Hematuria (Acute) Pelvic pain in female (Acute) Past Medical History Medical History Encounter for annual routine gynecological examination Encounter for management and injection of depo-Provera Subchorionic hemorrhage in first trimester Coccygeal pain Hematuria Family History Family History Paternal Grandfather Alzheimer's dementia Paternal Aunt Breast cancer Maternal Aunt Colon polyps Paternal Grandfather Stomach ulcer Surgical History Surgical History No pertinent past surgical history Social History Social History Household Members: Spouse and Children Housing: House Are you a primary patient care nursing assistant to a significant other at home: No Do you presently have visiting nurse or other home services: No Alcohol intake: never Patient Tobacco Use Status: Never used Tobacco Use of substances other than those prescribed or required for medical reasons: No Substance Use Type: Marijuana Agree to transfusion: Yes Are you DNR?: No Advance Directives: No Advance Directives Information Provided: Yes Patient : No (UCG pending) service: No 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al status: unemployed 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 Sexual orientation: Straight/Heterosexual Gender identity: Female Meds Allergies Allergy/AdvReac Type Severity Reaction Status Date / Time No Known Allergies Allergy Verified 05/19/24 09:16 [No Known Allergies*] Home Medications ?Medication ?Instructions ?Recorded ?Confirmed ?Last Taken ?Type etonogestrel 68 mg subdermal subdermal 04/02/24 04/23/24 Unknown History implant (Nexplanon) albuterol sulfate 90 mcg/actuation 2 puff inhalation Q6H 05/19/24 Unknown History aerosol inhaler Exam Pertinent Lab Results Pertinent Lab Results: Laboratory Tests 04/24/24 19:40 WBC 5.4 Hgb 13.6 Hct 39.2 Plt Count 325 Sodium 140 Potassium 3.1 L Chloride 108 Carbon Dioxide 21 L BUN 14 Creatinine 0.80 Assessment and Plan Assessment Anesthesia Assessment: Chart Reviewed Documented by User: Debby Peña MD 06/01/24 13:03 PMF Active Problems Active Problems: All Active Problems Diverticulitis (Acute) Left sided abdominal pain (Acute) Mastodynia of left breast (Acute) Bloody stool (Acute) Nexplanon in place (Acute) mastalgia (Acute) Subchorionic hemorrhage in first trimester (Acute) care, subsequent in second trimester (Acute) Subchorionic hemorrhage (Acute) SI (sacroiliac) joint dysfunction (Acute) Nausea (Acute) Chronic idiopathic constipation (Acute) Hematuria (Acute) Pelvic pain in female (Acute) Asthma. Inhaler prn Past Medical History Medical History Encounter for annual routine gynecological examination Encounter for management and injection of depo-Provera Subchorionic hemorrhage in first trimester Coccygeal pain Hematuria Family History Family History Paternal Grandfather Alzheimer's dementia Paternal Aunt Breast cancer Maternal Aunt Colon polyps Paternal Grandfather Stomach ulcer Family history of problems with anesthesia: No Surgical History Surgical History No pertinent past surgical history History of Problems with Anesthesia: No Social History Social History Household Members: Spouse and Children Housing: House Are you a primary patient care nursing assistant to a significant other at home: No Do you presently have visiting nurse or other home services: No Alcohol intake: never Patient Tobacco Use Status: Never used Tobacco Use of substances other than those prescribed or required for medical reasons: No Substance Use Type: Marijuana Agree to transfusion: Yes Are you DNR?: No Advance Directives: No Advance Directives Information Provided: Yes Patient : No (UCG pending) service: No 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al status: unemployed 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 Sexual orientation: Straight/Heterosexual Gender identity: Female Meds Allergies Allergy/AdvReac Type Severity Reaction Status Date / Time No Known Allergies Allergy Verified 05/19/24 09:16 [No Known Allergies*] Home Medications ?Medication ?Instructions ?Recorded ?Confirmed ?Last Taken ?Type etonogestrel 68 mg subdermal subdermal 04/02/24 04/23/24 Unknown History implant (Nexplanon) albuterol sulfate 90 mcg/actuation 2 puff inhalation Q6H 05/19/24 Unknown History aerosol inhaler Exam Height,Weight and Vital Signs: Height 5 ft 6 in Weight 80.853 kg Vital Signs Temp Pulse Resp BP Pulse Ox O2 Del Method 06/01/24 11:14 98.2 F 83 16 109/74 98 Room Air Pertinent Lab Results Pertinent Lab Results: Laboratory Tests 04/24/24 19:40 WBC 5.4 Hgb 13.6 Hct 39.2 Plt Count 325 Sodium 140 Potassium 3.1 L Chloride 108 Carbon Dioxide 21 L BUN 14 Creatinine 0.80 Lab Results 06/01/24 Range/Units 09:42 Urine Test NEGATIVE (NEGATIVE) Airway Mallampati Class: II TM Dist: >3cm Neck ROM: Full Loose/Missing/Broken Teeth: No (Denies broken, loose, missing teeth) Heart: RRR Lungs: CTAB Assessment and Plan Assessment Anesthesia Assessment: Anesthesia Plan Discussed and Chart Reviewed Final Anesthetic Review Family History of Problems with Anesthesia: No History of Problems with Anesthesia: No NPO: Yes ASA Class: II Final Preanesthetic Review: No Changes in Pt Med Stat, Meds/Allgs Chart Reviewed, Consent Obtained/Reviewed and Anes Risks/Benef Reviewed Patient Risk: Intermediate Procedure Risk: Low Assessment/Block/Sedation in SS: Assess/Block/Sedation-SS Anesthetic Plan Anesthetic Plan: TIVA Disposition: Standard PACU
--- OUTSIDE RECORDS SUMMARY | 2024-06-01 09:09 | XMS_ITS | Continuity of Care Document ---
Author Organization [facility] Address [address] [place] [address]- Care Team Providers Care Document Reviewer Name Role Phone Rolo MATIAS, Michelle Hale Primary Care Physician Encounter [facility] Date(s): 04/28/24 - 05/05/24 [facility] [address] [place] [address]- Encounter Diagnosis Pre-diabetes(Discharge Diagnosis) - 04/28/24 Low TSH level(Discharge Diagnosis) - 04/28/24 Melena(Discharge Diagnosis) - 04/28/24 Attending Physician: Rolo MATIAS, Michelle Hale Allergies, Adverse Reactions, Alerts No Known Allergies Immunizations Given and Recorded Vaccine Date Status Refusal Reason influenza virus vaccine, inactivated 1 07/29/23 Gi lilliam tetanus/diphtheria/pertussis, acel(Tdap) 05/20/23 Given 1Result Comment: [07/29/2023] [id number] Medications Albuterol (Eqv-ProAir HFA) 90 mcg/inh inhalation aerosol 2 puffs, Inhalation, Every 6 hours, # 8.5 Gm, 3 Refills, Maintenance, 04/10/24 10:55:00 EDT, [id number], Partial fill upon patient request if the prescription is for a schedule II opioid drug., 2 puffs Inhalation Every 6 hours, 168, cm, ... Start Date: 04/10/24 Status: Ordered etonogestrel 68 mg subcutaneous implant 1 each = 68 mg, Intradermal, freight caller to Procedure, 0 Refills, Maintenance, 08/10/23 [...] Confirmed Active Obese class I Confirmed Active Pre-diabetes Confirmed Active Nexplanon in place - inserted 08/10/23 Confirmed Active Diagnosis Diagnosis Type Effective Dates Health Status Cl inical Service Informant Pre-diabetes Discharge Diagnosis 04/28/24 Low TSH level Discharge Diagnosis 04/28/24 Melena Discharge Diagnosis 04/28/24 Vital Signs Most recent to oldest [Reference Range]: 1 2 Height 168 cm (04/28/24 8:34 AM) 168 cm (04/28/24 8:29 AM) Weight 85 kg (04/28/24 8:29 AM) Oxygen Saturation [94-100 %] 99 % (04/28/24 8:29 AM) Pulse Rate [55-90 bpm] 78 bpm (04/28/24 8:29 AM) Body Mass Index [18.5-24.99 kg/m2] 30.12 kg/m2 *>HHI* (04/28/24 8:29 AM) Blood Pressure [90-138/55-84 mm Hg] 93/7 5mm Hg (04/28/24 8:34 AM) 153/137mm Hg *H* (04/28/24 8:29 AM) Mode of Delivery (Oxygen) Room air (04/28/24 8:29 AM) Blood pressure sites Arm, left (04/28/24 8:34 AM) Arm, left (04/28/24 8:29 AM) Weight Obtained Via Standing scale (04/28/24 8:29 AM) Social History Social History Type Response Smoking Status Never (less than 100 in lifetime) entered on: 03/11/23 Sex Note * Ramona Brunson: PERFORM Event Display: Patient Education/Instruction Authored Date: Ambulatory Adult Visit Summary [address] [id number] Name: MARILYN ORELLANA : 1990?? Visit: 04/28/2024 08:19?? Ambulatory Visit Instructions ?? Your Care Team Primary Care Provider Rolo MATIAS, Michelle Hale? This Visit Provider Michelle Seth NP Your Diagnosis Pre-diabetes Low TSH level Melena Vitals Signs Pulse Rate: 78 bpm Height: 168 cm Systolic Blood Pressure: 93 mm Hg Weight: 85 kg Diastolic Blood Pressure: 75 mm Hg Body Mass Index:??30.12 kg/m2??Critical Oxygen Saturation: 99 % Body surface area: 1.99 What to do next Scheduled Follow-Up Appointments Saturday 12:20 PM EDT ?? With: Michelle Seth NP Where: [address] [address]- Status: Pending Follow-Up Appointments Follow Up with??Michelle Seth NP When:??11/06/2024 03:40 PM EST Where: [address] [place] [address]- Future Orders Urinalysis (Outpt) - Urine, Once, 07/03/23, Order for Today?? Medications The list below reflects the information in our records and provided by you today along with any changes made during this visit. Please continue your medications until treatment is completed or stopped by your provider. If this is different from the information you have or there are other questions,please contact the prescribing provider. What How Much When Why Instructions Unchanged Albuterol (Albuterol (Eqv-ProAir HFA) 90 mcg/ inh inhalation aerosol) 2 puff(s) Inhalation Every 6 hours Mild intermittent asthma Unchanged Etonogestrel (etonogestrel 68 mg subcutaneous implant) 1 Each Intradermal freight caller to Procedure Unchanged Multivitamin, (PNV Plus) Oral Daily Medications and Immunizations Administered Medications Given During Visit No medications given during this visit.?? Allergies (NKA means No Known Allergies) NKA Common Emergency Awareness Tips IS IT A [...] are strongly encouraged to quit. Please call [employer] at [phone] or [phone] (5305) or log in to [email or web address] for referrals to smoking cessation programs. ?? The National Suicide Prevention Hotline is available 20/05 if you or someone you know needs to find a reason to keep living. By calling 0-690-759-eMoov (8227) you'll be connected to a skilled, trained counselor at a crisis center in your area. [facility] Portal You can view and manage your care through the patient portal or by using a health care gabriela of your choosing. [employer] is a website that allows you to securely view your medical information including your hospital discharge summary, office visit summaries, medications and follow-up visits. You can also request appointments, renew medications, and request access to your medical information using a health care gabriela of your choosing, or just ask a question. You can enroll at [email or web address] or register during your next office visit. [facility], in keeping with [facility] guidance, no longer requires face masks [...] medical provider or home test kit. ?? Disclaimer: The information provided is of a general nature and is intended to be used in conjunction with the recommendations and advice of your health care practitioner. Every effort has been made to ensure that the information provided is accurate and complete at the time it is provided to you however, as your needs change, or, as new information becomes available, different or additional instructions may be required. ?? If you have questions, please consult with your primary care provider or pharmacist, as appropriate. This information is not intended to serve as substitution for assessment and evaluation by a qualified health care provider. If you do not have a primary care provider, you may find a [facility] provider by calling [facility] at [phone]. Patient Care team information Care Team Personnel Name: Rolo MATIAS, Michelle Hale Position: [facility] Associate Professional Member Role: PCP Address: Address: [address] [place] [id number]- Care Team Related Persons Name: PRADIP BARROW Address: [facility] Address: home [address] [place] [id number] Name: PRADIP CARLIN Address: home [address] [place] [id number]
[2024-06-01 09:49] LABS: UPreg QC Valid YES; Urine Pregnancy NEGATIVE (NEGATIVE)
--- NOTE | 2024-06-01 10:45 | MHC.SHP ---
Pre-Procedural Eval Section A - 24 Hr Update-Section A only Date of Service: 06/01/24 The patient is an INPATIENT: No The patient has been examined within 24 hours of the surgical procedure. The History & Physical has been completed within 30 days and I have reviewed it.: No Section B - Complete if H&P > 30 days Chief Complaint: abdominal pain, rectal bleeding, wt loss Relevant Family History (Specify if Yes): No Relevant Social History: None Present Medications: see Short Stay Collaborative assessment Medical History: Significant History (Subchorionic hemorrhage in first trimester Coccygeal pain Hematuria) History of Previous Operations: No relevant previous surgery Allergies: Allergies Allergy/AdvReac Type Severity Reaction Status Date / Time No Known Allergies Allergy Verified 05/19/24 09:16 [No Known Allergies*] Review of Systems Sugical H&P ROS: Negative: Constitution, Cardiovascular, Respiratory and Gastrointestinal Exam Surgical H&P Exam: Normal: Heart, Normal: Lungs, Normal: Extremities and Normal: Abdomen Plan Diagnosis/Plan: Unchanged I have reviewed the history and physical and performed a pertinent physical examination on my patient. No changes have occurred unless specified. Time Spent With Patient Time: Total time managing care of this patient today ____ minutes.
[2024-06-01 10:58] VITALS: BMI 28.8
[2024-06-01 11:14] VITALS: BP 109/74; PULSE 83; RESP 16; TEMP 36.8; O2SAT 98
[2024-06-01] MEDS: Lactated Ringers 1,000 ML 100 ML IVCONT (11:30)
--- NOTE | 2024-06-01 12:39 | HO.OPN-COLON ---
Colonoscopy Operative Note Operative Note Date of Service: 06/01/24 Narrative: FLEXIBLE TRANSORAL UPPER GASTROINTESTINAL ENDOSCOPY WITH BIOPSIES AND COLONOSCOPY TILL CECUM WITH BIOPSIES AND SNARE POLYPECTOMY Pre-op diagnosis: Abdominal pain, rectal bleeding, weight loss Post-op diagnosis: Gastritis, Colon Polyps, Diverticulosis, hemorrhoids Endoscopist:? Farhana Smith MD Anesthesia:?MAC UPPER ENDOSCOPY Consent: Indications for the procedure and potential complications of bleeding, perforation, reaction to medications and missed diagnosis were discussed with the patient and informed consent was obtained. Instrument: Olympus GIF H 190 mid size upper endoscope Monitoring: Vital signs and clinical assessment, continuous EKG monitoring, Pulse oximetry, Carbon Dioxide monitoring and blood pressure monitoring were done throughout the procedure. Procedure: The patient was placed in the left lateral decubitis position and pre-procedure medications were administered and a bite block was placed. The endoscope was inserted into the mouth and advanced under direct vision to the third part of duodenum. A careful inspection was made as the upper endoscope was withdrawn including a retroflexed examination of the proximal stomach; Findings and interventions are described below. Findings: Larynx: Normal Esophagus: GE junction at 38 cms. No esophagitis or Keller's. Stomach: Mild diffuse gastric erythema - biopsies were obtained from the antrum. Grade 2 flap valve on retroflexed examination of the cardia. Duodenum: Normal bulb and descending duodenum Biopsies were obtained from descending duodenum to check for celiac sprue Intervention: Biopsies as noted above COLONOSCOPY PROCEDURE NOTE Instrument: Olympus PCF H 190 L variable stiffness pediatric colonoscope Monitoring: Vital signs and clinical assessment, intermittent blood pressure monitoring, continuous EKG monitoring, Pulse oximetry and Carbon Dioxide monitoring were done throughout the procedure. Please see anesthesia flowsheet. Colon withdrawl time was 8 minutes. Procedure: The patient was placed in the left lateral decubitis position and pre-procedure medications were administered. After a digital rectal examination of the ano-rectum, the video colonoscope was inserted into the rectum and advanced through the colon to the ileo-cecal valve. The colonoscope was slowly withdrawn in a retrograde panoramic fashion and the colon mucosa was carefully examined including a retroflexed view of the rectum. Findings and interventions are described below. Procedure Difficulty: Colon was long and tortuous and there was some loop formation. Pt was placed in the supine position and LLQ pressure was applied to intubate the cecum without success Findings: Terminal Ileum: Not evaluated Cecum: Not evaluated Ascending Colon: A 10 mm sessile polyp in the distal ascending colon - removed with a cold snare Transverse Colon: A 12 mm sessile polyp in the distal transverse colon - removed with a hot snare Descending Colon: Normal Sigmoid Colon: Moderate diverticulosis Rectum: Normal Ano-rectum: Small non-bleeding internal hemorrhoids Colon preparation: Excellent, after some irrigation. [place] Bowel Preparation Scale Right colon; 3 Transverse colon: 3 Left colon; 3 (0 = Unprepared colon segment with mucosa not seen due to solid stool that cannot be cleared. 1 = Portion of mucosa of the colon segment seen, but other areas of the colon segment not well seen due to staining, residual stool and/or opaque liquid. 2 = Minor amount of residual staining, small fragments of stool and/or opaque liquid, but mucosa of colon segment seen well. 3 = Entire mucosa of colon segment seen well with no residual staining, small fragments of stool or opaque liquid) Impression and Post Procedure Diagnosis: Endoscopy Findings: STOMACH: Mild diffuse gastric erythema - biopsies were obtained from the antrum. DUODENUM: Normal - biopsied to check for celiac sprue Colonoscopy Findings: Two medium sized polyps were removed Random biopsies were obtained from right and left colon to check for microscopic Moderate diverticulosis seen in the sigmoid colon small hemorrhoids on retroflexed exam. Plan: Pt has a FU appointment on 06/18/24 with Julienne Mays NP. Repeat Colonoscopy in 3-5 years if polyps are adenomatous and 10 year if polyps are hyperplastic. (needs adult colonoscope for future colonoscopies) Pt was placed on colonoscopy recall list. Above findings were reviewed with the patient and relevant handouts were given and the discharge area. Consider further evaluation with small-bowel enterography if patient continues to have abdominal pain BIOPSIES SHOWED: A. Small bowel, biopsy: Small intestinal mucosa within normal limits; negative for celiac disease. B. Stomach, antrum, biopsy: Antral-type and oxyntic mucosa with mild chronic inactive inflammation; no Helicobacter organisms seen. C. Colon, transverse, polypectomy: Tubular adenoma; negative for high-grade dysplasia or carcinoma. D. Colon, right, biopsy: Colonic mucosa within normal limits; negative for microscopic colitis. E. Colon, ascending, polypectomy: Tubular adenoma; negative for high-grade dysplasia or carcinoma. F. Colon, random left, biopsy: Colonic mucosa within normal limits; negative for microscopic colitis.
[2024-06-01 13:16] VITALS: BP 95/63; PULSE 72; RESP 14; TEMP 36.1; O2SAT 98
[2024-06-01 13:31] VITALS: BP 99/64; PULSE 70; RESP 14; O2SAT 98
[2024-06-01 13:45] VITALS: BP 106/69; PULSE 70; RESP 16; TEMP 36.1; O2SAT 98
== END 2024-06-01 14:24 | disposition home or self-care (01) ==
PROVIDERS: Nurse Practitioner; PCP Nurse Practitioner Family; Visit Provider Internal Medicine Gastroenterology
PROC: (CPT 45385; principal; 2024-06-01 10:50)
DX: K62.5 Hemorrhage of anus and rectum (principal); D12.2 Benign neoplasm of ascending colon; D12.3 Benign neoplasm of transverse colon; K57.30 Diverticulosis of large intestine without perforation or abscess without bleeding; K64.8 Other hemorrhoids; R10.32 Left lower quadrant pain; K29.50 Unspecified chronic gastritis without bleeding; K59.04 Chronic idiopathic constipation; R73.03 Prediabetes; R63.4 Abnormal weight loss; Z68.29 Body mass index [BMI] 29.0-29.9, adult; R53.83 Other fatigue; R31.9 Hematuria, unspecified; M53.3 Sacrococcygeal disorders, not elsewhere classified; Z79.899 Other long term (current) drug therapy; Z97.5 Presence of (intrauterine) contraceptive device; Z56.0 Unemployment, unspecified
CPT/HCPCS: 45385; 45380; 43239; 81025; 88305; 88313; 88342; J2704

== ENCOUNTER → 2024-06-01 09:06 | Outpatient (BNV) | payer BC, SELFPAY | PROVIDERS: PCP Nurse Practitioner Family; Visit Provider Internal Medicine Gastroenterology | DX: K62.5 Hemorrhage of anus and rectum (principal); D12.3 Benign neoplasm of transverse colon; D12.2 Benign neoplasm of ascending colon; K57.30 Diverticulosis of large intestine without perforation or abscess without bleeding; K29.70 Gastritis, unspecified, without bleeding; R63.4 Abnormal weight loss | CPT/HCPCS: 43239; 45385 ==

== ENCOUNTER 2024-06-10 08:14 | Outpatient (REF) | payer BC, SELFPAY ==
--- NOTE | ~2024-06-10 | CT_ITS ---
EXAMINATION: CT ABDOMEN AND PELVIS WITH CONTRAST CLINICAL INFORMATION: Unspecified abdominal pain. COMPARISON: 05/03/2019 TECHNIQUE: Multidetector volumetric images were obtained from the superior aspect of the liver through the pubic symphysis following administration 85 mL of Omnipaque 350 intravenous contrast. Sagittal and coronal reformatted images were obtained on the technologist's workstation. Oral contrast: Yes This CT examination was performed using dose optimization techniques as appropriate, variously including the following: *Automated exposure control *Adjustment of mA and/or kV according to patient size (this includes techniques or standardized protocols for targeted exams where dose is matched to indication/reason for exam; i.e. extremities or head) *Use of iterative reconstruction technique DLP: 493 mGy-cm FINDINGS: LUNG BASES: The visualized lung bases are unremarkable. LIVER, GALLBLADDER, AND BILIARY TREE: The liver is normal in size and contour. No suspicious hepatic lesion or biliary ductal dilatation is present. The gallbladder is unremarkable with no evidence of radiopaque gallstones, gallbladder wall thickening, or obvious pericholecystic inflammatory changes. PANCREAS: Unremarkable. SPLEEN: Unremarkable. ADRENAL GLANDS: Unremarkable. KIDNEYS AND URETERS: The kidneys are symmetric in size and enhancement. No hydronephrosis. No perinephric stranding. BLADDER: Decompressed limiting evaluation. GASTROINTESTINAL TRACT: Small and large bowel loops are of normal caliber. No small bowel obstruction. Appendix is within normal limits. ABDOMINAL WALL: Small fat-containing umbilical hernia. LYMPH NODES: No bulky lymphadenopathy. VASCULAR: Normal caliber abdominal aorta. 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 PELVIC VISCERA: Unremarkable. OSSEOUS STRUCTURES: No destructive bone lesions. CT/CT abdomen pelvis w IV con IMPRESSION: Thrombosis of the right gonadal vein. Findings are reviewed and discussed with Dr. Mays at 11:58 AM on 06/11/2024.
[2024-06-10] MEDS: iohexoL 350 MG/ML 100 ML INFUS..BTL 85 ML IV (11:31)
[2024-06-10] MEDS: Barium Sulfate Oral (Mocha) 450 ML ORAL.SUSP 900 ML PO (11:32)
== END 2024-06-10 08:15 | disposition home or self-care (01) ==
LOC: HO.CT 08:14
PROVIDERS: PCP Nurse Practitioner Family; Visit Provider Nurse Practitioner
DX: R10.9 Unspecified abdominal pain (principal)
CPT/HCPCS: 74177; Q9967

== ENCOUNTER 2024-06-11 12:45 | Emergency (ER) | payer BC, SELFPAY ==
--- NOTE | ~2024-06-11 | CT_ITS ---
EXAMINATION: CT ANGIOGRAM OF THE CHEST WITH AND WITHOUT CONTRAST (CT PULMONARY ANGIOGRAM FOR PE) CLINICAL INFORMATION: Reason for Exam L-sided chest pain, right gonadal vein clot, R/PE COMPARISON: None available. TECHNIQUE: Prior to contrast administration, noncontrast localization images were obtained. Subsequently, multidetector volumetric imaging was performed from the thoracic inlet to below the diaphragms following the administration of 65 mL Omnipaque 350 intravenous contrast. No contrast reaction reported Sagittal, coronal, and MIP oblique sagittal reformatted images were obtained on the CT workstation, uploaded to PACS, and reviewed. This CT examination was performed using dose optimization techniques as appropriate, variously including the following: *Automated exposure control *Adjustment of mA and/or kV according to patient size (this includes techniques or standardized protocols for targeted exams where dose is matched to indication/reason for exam; i.e. extremities or head) *Use of iterative reconstruction technique Total exam dose-length product 260 mGy-cm FINDINGS: QUALITY OF STUDY/CONTRAST BOLUS: Satisfactory. PULMONARY ARTERIES: No pulmonary emboli. THORACIC AORTA: No aneurysm. LUNG: No focal consolidation, nodules or masses. PLEURA: No pleural effusion or pneumothorax. MEDIASTINUM: Normal heart size. No pericardial effusion. No hilar or mediastinal lymphadenopathy. No evidence of septal bowing or right heart strain. CORONARY ARTERY CALCIFICATION: None visualized on this study. CHEST WALL/AXILLA: No axillary or internal mammary lymphadenopathy. OSSEOUS STRUCTURES: No acute or suspicious osseous abnormality. UPPER ABDOMEN: Unremarkable. No reflux of contrast into the hepatic veins to suggest elevated right heart pressures. CT/CT angio chest PE protocol IMPRESSION: No evidence of pulmonary embolism. VTE: negative.
--- NOTE | ~2024-06-11 | XR_ITS ---
EXAMINATION: XR CHEST CLINICAL INFORMATION: Left sided chest pain. COMPARISON: None available. TECHNIQUE: 2 views of the chest were obtained. FINDINGS: The heart is normal in size. The lungs are clear. Pleural spaces are clear. No pneumothorax. No acute osseous abnormality. XR/XR chest 2V IMPRESSION: No acute cardiopulmonary disease.
[2024-06-11 12:51] VITALS: BP 114/78; PULSE 81; RESP 16; TEMP 36.9; O2SAT 99; BMI 28.4
--- NOTE | 2024-06-11 12:52 | ED.ABDPAIN ---
HPI - Abdominal Pain General Chief Complaint: Recheck/Abnormal Lab/Rx Stated Complaint: blood clot, Sent down by Tabatha Time Seen by Provider: 06/11/24 14:40 Source: patient Mode of arrival: EMS Limitations: no limitations History of Present Illness ED Provider: Dr. Wm Freeman HPI narrative: 33-year-old female , 10 months who presents emergency department for evaluation of 5 months of constant left-sided abdominal pain and several months of intermittent left-sided chest pain worse x3 days. 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 Given this finding and the patient's symptoms, she was sent to the emergency department for evaluation. Patient states that she was times 10 months. She states that her was complicated by decreased amniotic fluid and subchorionic bleed. The patient states that she had to be induced and did have bleeding after the placenta was removed but did not require transfusions or prolonged hospitalization. She states that over the past 5 months she has been having left-sided abdominal pain which she describes as a constant pain which is 8/10. She was also been having intermittent left-sided chest pain which is worse with breathing and worse with movement. She states that this pain is gotten worse over the last 3 days. Patient points to her costochondral joint area on the left anterior chest when asked to localize the pain. She states the pain is worse if she pushes on this area. She does feel short of breath and does have dyspnea on exertion. She has not had any swelling in her lower extremities. She denied fever or chills. She denied nausea vomiting or diarrhea. Despite her chest pain being 8/10 she does not want any pain medications at this time. Patient is still breast-feeding. She reports an unintentional 30 lb weight loss. Related Data Home Medications ?Medication ?Instructions ?Recorded ?Confirmed etonogestrel 68 mg subdermal subdermal 04/02/24 04/23/24 implant (Nexplanon) albuterol sulfate 90 mcg/actuation 2 puff inhalation Q6H 05/19/24 aerosol inhaler Previous Rx's ?Medication ?Instructions ?Recorded amoxicillin 875 mg-potassium 1 tab PO BID 14 days #28 tabs 07/23/24 clavulanate 125 mg tablet apixaban 5 mg (74 tabs) tablets in 5 mg PO BID #74 ea 06/11/24 a dose pack (Eliquis DVT-PE Treat 30D Start) Allergies Allergy/AdvReac Type Severity Reaction Status Date / Time No Known Allergies Allergy Verified 06/11/24 12:54 [No Known Allergies*] Review of Systems Review of Systems Yes all other systems are reviewed and are negative PMFSH Past Medical History Medical History Encounter for annual routine gynecological examination Encounter for management and injection of depo-Provera Subchorionic hemorrhage in first trimester Coccygeal pain Hematuria Surgical History No pertinent past surgical history Family History Family History Paternal Grandfather Alzheimer's dementia Paternal Aunt Breast cancer Maternal Aunt Colon polyps Paternal Grandfather Stomach ulcer Social History Social History Household Members: Spouse and Children Housing: House Are you a primary career development consultant to a significant other at home: No Do you presently have visiting nurse or other home services: No Alcohol intake: never Patient Tobacco Use Status: Never used Tobacco Substance Use Type: Marijuana Agree to transfusion: Yes Advance Directives: No Advance Directives Information Provided: Yes service: No 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al status: unemployed 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 Sexual orientation: Straight/Heterosexual Gender identity: Female Physical Exam ED Vital Signs: Vital Signs - 24 hr 06/11/24 12:51 06/11/24 15:06 06/11/24 18:23 Temperature 98.5 F 97.8 F 97.8 F Pulse Rate 81 62 62 Respiratory Rate 16 18 18 Blood Pressure 114/78 99/48 L 99/48 L Pulse Oximetry 99 100 100 Oxygen Delivery Method Room Air Room Air Room Air BMI result Body Mass Index 28.4 Vital signs were normal Exam: General: Awake, alert in no distress Head: Normocephalic, atraumatic EENT: PERRL, Lids normal, sclera normal, conjunctiva normal, nose normal , ears normal, throat without erythema or exudates Neck: Supple, no adenopathy Lung: breath sounds symmetric, no wheezing, rales or rhonchi Chest: symmetric movement, patient has tenderness palpation of her costochondral joints with left being greater than right Heart: regular rate and rhythm, normal S1, S2 no murmurs or rubs Abdomen: soft, mild diffuse abdominal tenderness with mild to moderate left lower quadrant tenderness, nondistended, normal bowel sounds Back: no vertebral tenderness, no CVAT Extremities: no deformities, moves all extremities symmetrically Neuro: Awake, alert, oriented, normal speech, cranial nerves intact, moves all extremities symmetrically Psych: Pleasant, cooperative Course Course Course Narrative: This is a Rapid Medical Examination (RME) performed by Blair Garay PA-C in triage. Full HPI, ROS, assessment and treatment plan per primary provider in the Main ED. 33 yo female who is 10 months post who presents to the ER for evaluation of an abnormal CT scan done yesterday by GI.. She has had left sided abdominal pain for several months - had EGD/colonoscopy recently and then a CT scan done yesterday that showed a gonadal vein thrombosis on the RIGHT side. She also reports having left sided chest pain for months as well, she had a normal breast U/S done in March. She is concerned the blood clot moved to her lungs. It is intermittent pain, comes with movement and it intense. She had melena and BRBPR months ago but none since her colonoscopy 06/01. Plan: lab workup, discuss treatment plan w/ vasc vs MARINE ENGINEERING PROFESSOR? 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 Patient states that her left-sided chest pain that has also become worse over the past 3 days and she has associated shortness of breath and dyspnea on exertion. Differential diagnosis: ?Includes but is not limited to: Chest pain: Myocardial infarction, myocardial ischemia, chest wall pain, costochondritis, pulmonary embolism, pleurisy Abdominal pain: Diverticulitis, gastritis, pancreatitis, electrolyte abnormalities, anemia Following evaluation was ordered: CBC, BMP, liver panel, magnesium, PT INR, PTT, lactic acid, urinalysis, chest x-ray two view, CT angiogram PE protocol, EKG Course: 17:15 My interpretation patient's laboratory evaluation as follows: CBC was normal. BNP was normal. LFTs were normal. Troponin was below detectable limits. Urinalysis positive for blood. Microscopic revealed 11-20 RBCs, 0-5 WBCs, no bacteria-no evidence for infection. D-dimer was elevated at 313. TSH was normal at 0.32. CT pulmonary angiogram PE protocol revealed no PE or other significant findings. I did discuss the patient's presentation with our covering OBGYN, Dr. Alexandru Jhaveri. He states that the this pelvic vein thrombus does not require any literary agent intervention but states that sometimes can be caused by a pelvic infection. At this time I do not think that the patient's abdominal pain is due to PID or pelvic infection. Given the deep venous pelvic thrombus , I did order a hypercoagulation workup. The patient was prescribed Eliquis 10 mg q.12 hours x7 days and then 5 mg q.12 hours . She was given her 1st dose of Eliquis Patient will be referred to our sheet pile hammer operator on-call, Dr. Kenyon for further evaluation. Patient is currently breast-feeding and I told her that she needs to stop breast-feeding while she takes Eliquis. Patient states that her provider did want to get a mammogram on her but this was not done since she still was producing milk. And I told her it was important that she follow up with a provider and get a mammogram as soon as possible to rule out the possibility of breast cancer as the cause of a hypercoagulable state. Admission/Observation Consideration of admission/observation: Escalation of care including admission/observation considered Consult Healthcare Provider Management of the patient was discussed with: Debt And Budget Counselor (Dr. Jhaveri ) Lab Data MDM Lab Attestation statement: I reviewed the patient's lab results. 06/11/24 13:14 06/11/24 13:14 Labs: Lab Results 06/11/24 06/11/24 06/11/24 Range/Units 13:14 13:26 13:54 WBC 5.3 (4.8-10.8) X10*3/uL RBC 4.70 (4.20-5.50) X10*6/uL Hgb 13.4 (12.0-16.0) g/dl Hct 39.4 (37.0-47.0) % MCV 83.8 (80.0-98.0) fL MCH 28.5 (27.0-33.0) pg MCHC 34.0 (31.0-35.0) g/dl RDW 13.2 (11.0-16.0) % Plt Count 330 (160-400) X10*3/uL MPV 8.7 L (9.4-12.3) fL Immature Gran % (Auto) 0.2 (0.0-0.4) % Neut % (Auto) 43.8 L (45-73) % Lymph % (Auto) 36.7 (20-40) % Hardy % (Auto) 7.9 (2-11) % Eos % (Auto) 10.5 H (0-4) % Baso % (Auto) 0.9 (0-2) % Lymph # (Auto) 2.0 (1.2-4.9) X10*3/uL Hardy # (Auto) 0.4 (0.1-1.2) X10*3/uL Eos # (Auto) 0.6 H (0.0-0.4) X10*3/uL Baso # (Auto) 0.1 (0.0-0.2) X10*3/uL Abs Immat Gran (auto) 0.01 (0.00-0.03) X10*3/uL Absolute Neuts (auto) 2.3 (2.0-8.3) x10*3/uL Absolute Nucleated RBC 0.000 (0.0-0.012) X10*3/uL Nucleated RBC % (auto) 0.0 (0.0-0.2) /100WBC PT 12.7 (11.1-13.3) SEC INR 1.0 (0.9-1.1) APTT 29.1 (26.0-36.8) SEC D-Dimer High Sensitivty NG/ML Sodium 138 (135-145) mmol/L Potassium 3.5 (3.3-5.1) mmol/L Chloride 107 (96-108) mmol/L Carbon Dioxide 22 (22-29) mmol/L Anion Gap 13 (12-20) BUN 12 (9-16) mg/dL Creatinine 0.73 (0.5-1.4) mg/dL Estim Creat Clear Calc 119.0 Estimated GFR > 60 Random Glucose 86 (60-115) mg/dL Lactic Acid 0.7 (0.5-2.0) mmol/L Calcium 9.7 (8.4-10.2) mg/dL Magnesium 1.9 (1.6-2.6) mg/dL Total Bilirubin 0.6 (0.0-1.0) mg/dL Direct Bilirubin 0.2 (0.0-0.5) mg/dL AST 13 (5-31) U/L ALT 14 (0-31) U/L Alkaline Phosphatase 53 (39-117) U/L Troponin I High Sens < 2.7 (<3.5-17.0) ng/L Total Protein 8.0 (6.5-8.0) g/dL Albumin 4.5 (3.5-5.0) g/dL TSH (0.32-4.0) uIU/mL Urine Color Yellow Urine Appearance Clear Urine pH 7.0 (5.0-9.0) Ur Specific [place] 1.015 (1.005-1.025) Urine Protein Negative (Neg-Trace) mg/dL Urine Glucose (UA) Negative (Negative) mg/dL Urine Ketones Negative (Negative) mg/dL Urine Blood Moderate (2+) H (Negative) Urine Nitrite Negative (Negative) Ur Leukocyte Esterase Negative (Negative) Urine RBC 11-20 H (0-2) /HPF Urine WBC 0-5 (0-5) /HPF Ur Squamous Epith Cells 0-2 (0-2) /HPF Urine Bacteria None Seen (None Seen) Hyaline Casts 0-2 (0-2) /LPF 06/11/24 Range/Units 17:53 WBC (4.8-10.8) X10*3/uL RBC (4.20-5.50) X10*6/uL Hgb (12.0-16.0) g/dl Hct (37.0-47.0) % MCV (80.0-98.0) fL MCH (27.0-33.0) pg MCHC (31.0-35.0) g/dl RDW (11.0-16.0) % Plt Count (160-400) X10*3/uL MPV (9.4-12.3) fL Immature Gran % (Auto) (0.0-0.4) % Neut % (Auto) (45-73) % Lymph % (Auto) (20-40) % Hardy % (Auto) (2-11) % Eos % (Auto) (0-4) % Baso % (Auto) (0-2) % Lymph # (Auto) (1.2-4.9) X10*3/uL Hardy # (Auto) (0.1-1.2) X10*3/uL Eos # (Auto) (0.0-0.4) X10*3/uL Baso # (Auto) (0.0-0.2) X10*3/uL Abs Immat Gran (auto) (0.00-0.03) X10*3/uL Absolute Neuts (auto) (2.0-8.3) x10*3/uL Absolute Nucleated RBC (0.0-0.012) X10*3/uL Nucleated RBC % (auto) (0.0-0.2) /100WBC PT (11.1-13.3) SEC INR (0.9-1.1) APTT (26.0-36.8) SEC D-Dimer High Sensitivty 313 NG/ML Sodium (135-145) mmol/L Potassium (3.3-5.1) mmol/L Chloride (96-108) mmol/L Carbon Dioxide (22-29) mmol/L Anion Gap (12-20) BUN (9-16) mg/dL Creatinine (0.5-1.4) mg/dL Estim Creat Clear Calc Estimated GFR Random Glucose (60-115) mg/dL Lactic Acid (0.5-2.0) mmol/L Calcium (8.4-10.2) mg/dL Magnesium (1.6-2.6) mg/dL Total Bilirubin (0.0-1.0) mg/dL Direct Bilirubin (0.0-0.5) mg/dL AST (5-31) U/L ALT (0-31) U/L Alkaline Phosphatase (39-117) U/L Troponin I High Sens (<3.5-17.0) ng/L Total Protein (6.5-8.0) g/dL Albumin (3.5-5.0) g/dL TSH 0.32 (0.32-4.0) uIU/mL Urine Color Urine Appearance Urine pH (5.0-9.0) Ur Specific [place] (1.005-1.025) Urine Protein (Neg-Trace) mg/dL Urine Glucose (UA) (Negative) mg/dL Urine Ketones (Negative) mg/dL Urine Blood (Negative) Urine Nitrite (Negative) Ur Leukocyte Esterase (Negative) Urine RBC (0-2) /HPF Urine WBC (0-5) /HPF Ur Squamous Epith Cells (0-2) /HPF Urine Bacteria (None Seen) Hyaline Casts (0-2) /LPF Independent Interpretation I performed an independent interpretation of an: EKG Interpretation: My independent interpretation patient's 12 EKG done at 12:59 hours is as follows: Normal sinus rhythm with a rate of 77, normal IA interval, QRS duration QTC interval, no ST segment elevation, no ST segment depression, no significant T-wave abnormalities, no PACs, no PVCs, poor R-wave progression. Radiology Impression Discussion of test interpretation with radiology: I have reviewed the radiologist's reading. Radiologist Impression: CT angio chest PE protocol IMPRESSION: No evidence of pulmonary embolism. VTE: negative. Dictated By: Logan Staples MD External Record Review External record reviewed: Office record and Outpatient record Prescription Management I considered prescription management with: Other (Anticoagulant-Eliquis) Medications Administered Discontinued Medications Generic Name Dose Route Start Last Admin Trade Name Freq PRN Reason Stop Dose Admin Apixaban 10 mg 06/11/24 17:32 06/11/24 18:11 Apixaban 5 Mg Tablet PO 06/11/24 17:33 10 mg ONCE ONE Administration Sodium Chloride 1,000 mls @ 999 mls/hr 06/11/24 15:07 06/11/24 16:21 Ns IV 06/11/24 16:07 Infused .Q1H1M STA Infusion Iohexol 100 ml 06/11/24 15:35 06/11/24 15:35 Iohexol 350 Mg/Ml 100 Ml Infus..Btl IV 06/11/24 15:36 65 ml ONCE ONE Administration Critical Care Time Critical Care Time Critical Care Time: Yes Total Critical Care Time: 45 Attestation: Critical Care: The patient was critically ill with a high probability of imminent or life threatening deterioration. I spent greater than 30 minutes of discontinuous time evaluating the patient,delivering critical care at the bedside, discussing and evaluating pertinent data with consultants. Critical care time does not include time spent performing separately billable procedures or teaching. Total time spent performing critical care was 45 minutes. Discharge Plan Discharge Clinical Impression: Acute deep vein thrombosis (DVT) of right side of pelvic region, Chest pain, Abdominal pain Patient Disposition: Home, Self-Care Instructions: Deep Vein Thrombosis (ED) Additional Instructions: Your blood work was unremarkable. The CT scan pulmonary angiogram PE protocol revealed no blood clots in your lungs and no other abnormalities to explain your pain which is reassuring. The blood clot in your pelvic vein is consistent with a deep venous thrombosis (DVT). You will need to be evaluated by our on-call sheet pile hammer operator, Dr. Kenyon to determine possible cause of your DVT and to see if you are prone to making blood clots (hypercoagulable workup). I ordered the hypercoagulable workup as well as a thyroid test on you. These tests will not come back today and Dr. Kenyon can discuss these tests with you. DVTs can sometimes break off and go to your lungs and cause a blood clot in your lungs (pulmonary embolism) Therefore I am treating you with a blood thinner called Eliquis (apixaban). Take 5 mg pills, 2 pills every 12 hours for 7 days. After 7 days take 5 mg pills, 1 pill every 12 hours until your re-evaluated by the sheet pile hammer operator. You should not stop this medication unless you are advised to do so by the sheet pile hammer operator. While you ?are taking Eliquis, do not take any NSAIDs (Motrin, Advil, ibuprofen, Aleve, naproxen). You can take Tylenol (acetaminophen) 325 mg pills, 2 pills every 6 hours as needed for pain. You will need to stop breast-feeding while your taking Eliquis. Follow-up with your doctor in 2 days. Please return to the emergency department if your symptoms get worse or if you develop any symptoms that are concerning to you. Once you stop breast-feeding, you should also got a mammogram as an outpatient to further evaluate your left breast pain. Prescriptions: New Eliquis DVT-PE Treat 30D Start 5 mg (74 tabs) tablets,dose pack 5 mg PO BID Qty: 74 0RF No Action albuterol sulfate 90 mcg/actuation HFA aerosol inhaler 2 puff inhalation Q6H amoxicillin-pot clavulanate 875-125 mg tablet 1 tab PO BID 14 Days Qty: 28 0RF Nexplanon 68 mg implant subdermal Referrals: Teresa Kenyon MD [Physician] - 1 week (Pelvic vein DVT (right gonadal vein), seen on CT scan abdomen pelvis IV contrast for ABD pain x5 months, started on Eliquis. Hypercoagulability workup ordered. TSH/T4 . Patient lost 30 lb unintentionally. Patient is times 10 months) Interventions: ED Discharge Assessment Last Done: 06/11/24 18:23 Discharge Date/Time: 06/11/24 18:23 Print Language: [place] Citizen
--- NOTE | 2024-06-11 12:56 | ECG_ITS ---
Test Reason : LEFT SIDED CHEST PAIN Blood Pressure : / mmHG Vent. Rate : 077 BPM Atrial Rate : 077 BPM P-R Int : 150 ms QRS Dur : 090 ms QT Int : 360 ms P-R-T Axes : 039 -22 017 degrees QTc Int : 407 ms Normal sinus rhythm with sinus arrhythmia Cannot rule out Anterior infarct , age undetermined Abnormal ECG When compared with ECG of 24-APR-2024 19:22, Questionable change in QRS axis Referred By: Nga Garay Electronically Signed By:ROSE MARY LANDIN
[2024-06-11 13:22] LABS: MANUAL DIFF FLAG NO
[2024-06-11 13:25] LABS: Basophils Absolute Auto 0.1 X10*3/uL (0.0-0.2); Basophils Percent Auto 0.9 % (0-2); Eosinophils Absolute Auto 0.6 X10*3/uL (0.0-0.4); Eosinophils Percent Auto 10.5 % (0-4); Hematocrit 39.4 % (37.0-47.0); Hemoglobin 13.4 g/dl (12.0-16.0); Imm Gran Abs Auto 0.01 X10*3/uL (0.00-0.03); Imm Gran Pct Auto 0.2 % (0.0-0.4); Lymphocytes Percent Auto 36.7 % (20-40); Mean Corpuscular Hemoglobin 28.5 pg (27.0-33.0); Mean Corpuscular Volume 83.8 fL (80.0-98.0); Mean Platelet Volume 8.7 fL (9.4-12.3); Monocytes Absolute Auto 0.4 X10*3/uL (0.1-1.2); Monocytes Percent Auto 7.9 % (2-11); Neutrophils Absolute Auto 2.3 x10*3/uL (2.0-8.3); Neutrophils Percent Auto 43.8 % (45-73); Platelet Count 330 X10*3/uL (160-400); Red Cell Distribution Width 13.2 % (11.0-16.0); White Blood Count 5.3 X10*3/uL (4.8-10.8)
[2024-06-11 13:38] LABS: Lactic Acid 0.7 mmol/L (0.5-2.0)
[2024-06-11 13:39] LABS: Appearance Urine Clear; Color Urine Yellow; Glucose Urine UA Negative (Negative); Leukocyte Esterase Urine Negative (Negative); Nitrite Urine Negative (Negative); Specific Gravity - Urine 1.015 (1.005-1.025); UMIC TRIGGER UACC YES; Urine Blood Moderate (2+) (Negative); Urine Ketones Negative (Negative); Urine Protein Negative (Neg-Trace)
[2024-06-11 13:43] LABS: Alanine Aminotransferase 14 U/L (0-31); Albumin Level 4.5 g/dL (3.5-5.0); Alkaline Phosphatase 53 U/L (39-117); Anion Gap 13 (12-20); Aspartate Amino Transferase 13 U/L (5-31); Bilirubin Direct 0.2 mg/dL (0.0-0.5); Bilirubin Total 0.6 mg/dL (0.0-1.0); Blood Urea Nitrogen 12 mg/dL (9-16); Calcium 9.7 mg/dL (8.4-10.2); Carbon Dioxide 22 mmol/L (22-29); Chloride 107 mmol/L (96-108); Estimated Glomerular Filt Rate > 60; Glucose Random 86 mg/dL (60-115); Magnesium 1.9 mg/dL (1.6-2.6); Potassium 3.5 mmol/L (3.3-5.1); Sodium 138 mmol/L (135-145)
[2024-06-11 13:44] LABS: Bacteria Urine None Seen (None Seen); Hyaline Casts Urine 0-2 /LPF (0-2); Squamous Epithelial Cell Urine 0-2 /HPF (0-2); WBC Urine 0-5 /HPF (0-5)
[2024-06-11 13:47] LABS: Troponin-I High Sensitivity < 2.7 ng/L (<3.5-17.0)
[2024-06-11 14:04] LABS: Prothrombin Time 12.7 SEC (11.1-13.3)
[2024-06-11 14:07] LABS: Partial Thromboplastin Time 29.1 SEC (26.0-36.8)
[2024-06-11 15:06] VITALS: BP 99/48; PULSE 62; RESP 18; TEMP 36.6; O2SAT 100
[2024-06-11] MEDS: 0.9 % Sodium Chloride 1,000 ML 999 ML IV (15:18)
--- NOTE | 2024-06-11 15:19 | PC.NURSE ---
Medicated per MAR.
[2024-06-11] MEDS: iohexoL 350 MG/ML 100 ML INFUS..BTL IV (15:35)
[2024-06-11 18:09] LABS: D Dimer High Sensitivity 313 NG/ML
[2024-06-11] MEDS: Apixaban 5 MG TABLET 10 MG PO (18:11)
--- NOTE | 2024-06-11 18:17 | P.CONOB_ITS ---
LABOR RELATIONS REPRESENTATIVE - CN: HPI Data of Consult Consult date: 06/11/24 Primary Care Provider: Michelle Seth NP Consult Narrative Narrative: I was consulted on Fransisca Gaines who is a 33 year old female , 10 months who presented to the emergency room with 5 months history of constant left-sided abdominal pain and several months of intermittent left-sided chest pain worse x3 days. 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 Patient states that she was times 10 months. Patient points to her costochondral joint area on the left anterior chest when asked to localize the pain. She states the pain is worse if she pushes on this area. She does feel short of breath and does have dyspnea on exertion. She has not had any swelling in her lower extremities. She denied fever or chills. She denied nausea vomiting or diarrhea. Despite her chest pain being 8/10 she does not want any pain medications at this time. No vaginal discharge or bleeding no pelvic pain or any other concerns cc:: CC: OB PMF Past Medical History Medical History Encounter for annual routine gynecological examination Encounter for management and injection of depo-Provera Subchorionic hemorrhage in first trimester Coccygeal pain Hematuria Family History Family History Paternal Grandfather Alzheimer's dementia Paternal Aunt Breast cancer Maternal Aunt Colon polyps Paternal Grandfather Stomach ulcer Surgical History Surgical History No pertinent past surgical history Social History Social History Household Members: Spouse and Children Housing: House Are you a primary clinical care coordinator to a significant other at home: No Do you presently have visiting nurse or other home services: No Alcohol intake: never Patient Tobacco Use Status: Never used Tobacco Substance Use Type: Marijuana Agree to transfusion: Yes Advance Directives: No Advance Directives Information Provided: Yes service: No 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al status: unemployed 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 Sexual orientation: Straight/Heterosexual Gender identity: Female Meds Allergies Allergy/AdvReac Type Severity Reaction Status Date / Time No Known Allergies Allergy Verified 06/11/24 12:54 [No Known Allergies*] Home Medications ?Medication ?Instructions ?Recorded ?Confirmed ?Last Taken ?Type etonogestrel 68 mg subdermal subdermal 04/02/24 04/23/24 Unknown History implant (Nexplanon) albuterol sulfate 90 mcg/actuation 2 puff inhalation Q6H 05/19/24 Unknown History aerosol inhaler LABOR RELATIONS REPRESENTATIVE Physical Exam Vitals Vital signs: Temp Pulse Resp BP Pulse Ox O2 Del Method 97.8 F 62 18 99/48 L 100 Room Air 06/11/24 15:06 06/11/24 15:06 06/11/24 15:06 06/11/24 15:06 06/11/24 15:06 06/11/24 15:06 BMI result Body Mass Index 28.4 Additional Comments: Physical exam reported by Dr. Freeman following: Abdomen: soft, mild diffuse abdominal tenderness with mild to moderate left lower quadrant tenderness, nondistended, normal bowel sounds LABOR RELATIONS REPRESENTATIVE - Results Labs 06/11/24 13:14 06/11/24 13:14 Labs: Short CBC 06/11/24 Range/Units 13:14 WBC 5.3 (4.8-10.8) X10*3/uL Hgb 13.4 (12.0-16.0) g/dl Hct 39.4 (37.0-47.0) % Plt Count 330 (160-400) X10*3/uL BMP 06/11/24 13:14 Sodium 138 Potassium 3.5 Chloride 107 Carbon Dioxide 22 BUN 12 Creatinine 0.73 Calcium 9.7 Liver Function 06/11/24 Range/Units 13:14 Total Bilirubin 0.6 (0.0-1.0) mg/dL Direct Bilirubin 0.2 (0.0-0.5) mg/dL AST 13 (5-31) U/L ALT 14 (0-31) U/L Alkaline Phosphatase 53 (39-117) U/L Albumin 4.5 (3.5-5.0) g/dL Urine 06/11/24 Range/Units 13:26 Urine Color Yellow Urine Appearance Clear Urine pH 7.0 (5.0-9.0) Ur Specific [place] 1.015 (1.005-1.025) Urine Protein Negative (Neg-Trace) mg/dL Urine Glucose (UA) Negative (Negative) mg/dL Imaging CT scan - pelvis: Radiologist's impression: ITS Impressions Chest X-Ray 06/11/24 14:11 IMPRESSION: No acute cardiopulmonary disease. Chest CTA 06/11/24 15:31 IMPRESSION: No evidence of pulmonary embolism. VTE: negative. Assessment and Plan (1) Thrombosis of ovarian vein: Status: Acute Will defer the management of chest symptoms to the emergency room team in rule out PE Regarding ovarian thrombosis discussed with Dr. Freeman the following: A delay in the diagnosis and treatment of OVT can lead to potentially life- threatening complications, such as thrombus extension into the IVC or ileofemoral vessels and eventually the evolution of pulmonary arterial embolization. There is a high incidence of pulmonary embolism is approximately? in patients with untreated OVT and the mortality in these patients is elevated.? Considering the potential catastrophic consequences, anticoagulation is usually recommended. I recommended to start the patient on anticoagulation with hematology/oncology consult & perform pelvic exam to rule out PID with GC/CT.? In addition, I recommended? to screen for potentially triggering factors including but not limited to: malignancy, ovarian pathology, infection including pelvic infection , inflammatory bowel disease or infectious bowel causes as the triggering factor,? rule out hyper coagulation state, and others....,? and outpatient close outpatient follow-up with the pt's obgyn rule out ovarian pathology with CA 125 and pelvic US..? There is no indication for any additional acute gynecological treatment in the emergency. I spent a total of 20 minutes reviewing the chart, communicating to the emergency room provider and documenting in the medical record Plan
[2024-06-11 18:23] VITALS: BP 99/48; PULSE 62; RESP 18; TEMP 36.6; O2SAT 100
[2024-06-11 18:36] LABS: TSH reflex Free T4 0.32 uIU/mL (0.32-4.0)
[2024-06-15 19:04] LABS: Anti-Thrombin III Antigen 98 % normal (80-120)
[2024-06-16 00:09] LABS: Anti-Thrombin III Activity 123 % normal (80-135); Protein C Activity 110 % normal (70-180); Protein S Activity rflx Tot&Fr 102 % normal (60-140)
[2024-06-16 21:53] LABS: PTT (LAC) Screen 31 sec (<=40)
[2024-06-20 23:28] LABS: Factor V Leiden NEGATIVE; Prothrombin 20210A NEGATIVE
== END 2024-06-11 18:23 | disposition home or self-care (01) ==
PROVIDERS: Physician Assistant; Emergency Provider Emergency Medicine Emergency Medical Services; PCP Nurse Practitioner Family
DX: I82.890 Acute embolism and thrombosis of other specified veins (principal); R79.89 Other specified abnormal findings of blood chemistry; R10.2 Pelvic and perineal pain; R07.89 Other chest pain; R53.83 Other fatigue; R97.8 Other abnormal tumor markers; R06.02 Shortness of breath; I49.8 Other specified cardiac arrhythmias; R11.2 Nausea with vomiting, unspecified; R19.09 Other intra-abdominal and pelvic swelling, mass and lump; Z80.3 Family history of malignant neoplasm of breast; Z79.899 Other long term (current) drug therapy; Z13.79 Encounter for other screening for genetic and chromosomal anomalies
CPT/HCPCS: 36415; 71046; 71275; 80048; 80076; 81001; 81240; 81241; 83605; 83735; 84443; 84484; 85025; 85300; 85301; 85302; 85303; 85306; 85379; 85597; 85598; 85610; 85613; 85730; 93005; 96360; 99284; Q9967

== ENCOUNTER 2024-06-18 11:42 | Outpatient (AMB) | payer BC, SELFPAY ==
--- NOTE | 2024-06-18 11:46 | MHC.OFFVIS ---
Vital Signs 06/18/24 11:49 Height 5 ft 6 in Weight 182 lb 1.629 oz BMI 29.4 Intake Visit Reasons: follow up s/p EGD and colonoscopy Intake Note: Zainab presents to in office visit today in follow up s/p EGD and colonoscopy. CC: Patient reports that she went to the ER per Julienne's advise she went to the ER and was placed on Eliquis. She is feeling better and denies having any new GI symptoms today. [employer] Required: No Allergies No Known Allergies [No Known Allergies*] Allergy (Verified 06/11/24 12:54) HPI HPI follow up s/p EGD and colonoscopy : Details: Assessment & Plan (1) Bloody stool: Code(s): K92.1 - Melena Category: Medical (2) Left sided abdominal pain: Comment: upper and lower left abd Code(s): R10.9 - Unspecified abdominal pain Category: Medical (3) Diverticulitis: Code(s): K57.92 - Diverticulitis of intestine, part unspecified, without perforation or abscess without bleeding Category: Medical Orders: Orders EGD/[place] [facility]bo - GI Use Only Today R10.9 - Unspecified abdominal pain CT abdomen pelvis w IV con Today R10.9 - Unspecified abdominal pain Ova and Parasite Today R10.9 - Unspecified abdominal pain Medications: New peg 3350-electrolytes 236-22.74-6.74 -5.86 gram (Golytely) until fecal effluent is clear; do not exceed a total volume of 2,000 mL 240 mL PO Q10M 1 day 4,000 mL 0RF Z12.11 - Encounter for screening for malignant neoplasm of colon bisacodyl (Dulcolax (bisacodyl)) 10 mg (2 x 5 mg) PO BEDTIME 2 days 4 tabs 0RF amoxicillin-pot clavulanate 875-125 mg 1 tab PO BID 14 days 28 tabs 0RF K57.92 - Diverticulitis of intestine, part unspecified, without perforation or abscess without bleeding, R10.9 - Unspecified abdominal pain She has been having rectal bleeding, having black stools for a week, then it became pale/yellow with blood intertwined. Now she sees a brown discharge. She is having pain in the left quad tracing a colon path. She can't lay on her left side. It is constant as a subtle, constant pain. She can't press on the left side. She has not been constipated since she gave to her son (Yahir). That was 9 mos ago, but this has been mostly for 4 mos. She was seen at the ER but was only given bentryl which she has not taken. She is also fatigued and having hot flashes. She is losing weight w/o trying, about 30 lbs. She is not currently breast feeding, she had to stop r/t pain. She was recently dx'ed with prediabetes and she is trying to eat better. She had a period of 2 weeks w/o a good appetite, but now this is returning and is improving. She denies any problem getting an appt. She does not know why this was in the ER note. She has a FHX of polyps and PUD. No GB or pancreatic disease. TSH at [facility] running high at 0.4 and high normal T4, this bears watching. ROV 4 weeks. will tx empirically with augmentin. LABS: not yet obtained COLONOSCOPY 06/01/24 Findings: Terminal Ileum: Not evaluated Cecum: Not evaluated Ascending Colon: A 10 mm sessile polyp in the distal ascending colon - removed with a cold snare Transverse Colon: A 12 mm sessile polyp in the distal transverse colon - removed with a hot snare Descending Colon: Normal Sigmoid Colon: Moderate diverticulosis Rectum: Normal Ano-rectum: Small non-bleeding internal hemorrhoids Impression and Post Procedure Diagnosis: Endoscopy Findings: STOMACH: Mild diffuse gastric erythema - biopsies were obtained from the antrum. DUODENUM: Normal - biopsied to check for celiac sprue Colonoscopy Findings: Two medium sized polyps were removed Random biopsies were obtained from right and left colon to check for microscopic Moderate diverticulosis seen in the sigmoid colon small hemorrhoids on retroflexed exam. Plan: Pt has a FU appointment on 06/18/24 with Julienne Mays NP. Repeat Colonoscopy in 3-5 years if polyps are adenomatous and 10 year if polyps are hyperplastic. (needs adult colonoscope for future colonoscopies) Pt was placed on colonoscopy recall list. Above findings were reviewed with the patient and relevant handouts were given and the discharge area. Consider further evaluation with small-bowel enterography if patient continues to have abdominal pain BIOPSIES SHOWED: A. Small bowel, biopsy: Small intestinal mucosa within normal limits; negative for celiac disease. B. Stomach, antrum, biopsy: Antral-type and oxyntic mucosa with mild chronic inactive inflammation; no Helicobacter organisms seen. C. Colon, transverse, polypectomy: Tubular adenoma; negative for high-grade dysplasia or carcinoma. D. Colon, right, biopsy: Colonic mucosa within normal limits; negative for microscopic colitis. E. Colon, ascending, polypectomy: Tubular adenoma; negative for high-grade dysplasia or carcinoma. F. Colon, random left, biopsy: Colonic mucosa within normal limits; negative for microscopic colitis. CT ABDOMEN AND PELVIS 06/11/24 FINDINGS: LUNG BASES: The visualized lung bases are unremarkable. LIVER, GALLBLADDER, AND BILIARY TREE: The liver is normal in size and contour. No suspicious hepatic lesion or biliary ductal dilatation is present. The gallbladder is unremarkable with no evidence of radiopaque gallstones, gallbladder wall thickening, or obvious pericholecystic inflammatory changes. PANCREAS: Unremarkable. SPLEEN: Unremarkable. ADRENAL GLANDS: Unremarkable. KIDNEYS AND URETERS: The kidneys are symmetric in size and enhancement. No hydronephrosis. No perinephric stranding. BLADDER: Decompressed limiting evaluation. GASTROINTESTINAL TRACT: Small and large bowel loops are of normal caliber. No small bowel obstruction. Appendix is within normal limits. ABDOMINAL WALL: Small fat-containing umbilical hernia. LYMPH NODES: No bulky lymphadenopathy. VASCULAR: Normal caliber abdominal aorta. 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 PELVIC VISCERA: Unremarkable. OSSEOUS STRUCTURES: No destructive bone lesions. CT/CT abdomen pelvis w IV con IMPRESSION: Thrombosis of the right gonadal vein. Findings are reviewed and discussed with Dr. Mays at 11:58 AM on 06/11/2024. CORRESPONDENCE On 06/11/24 @ 14:08 Julienne Mays Wrote To Julienne Mays PATIENT WAS CALL THIS IN HIS THE RADIOLOGIST called our office and advised to go to the ER so that we can initiate anticoagulation. I called in expect to our ER provider at approximately 12 noon today. (CT showed gonadal vein thrombosis) TODAY'S VISIT She is agreeable to a 5 year follow-up. The procedure was well tolerated. The results were explained and the patient is agreeable to the follow-up interval as stated. The bowel pattern has returned to normal. Education was provided to tell any 1st degree relatives about their findings to be sure that they are screened by age 45. Educated that they will be put on a recall list when it is time for their repeat scope but should they move out of state or away from the hospital they will need to remember along with their primary to repeat the procedure in a timely fashion to avoid any adverse complications. SHE WAS STARTED ON XARELTO AND HAS HAD QUITE AN improvement in her pain. Actually she started improving after her antibiotic therapy which is not uncommon since a gonadal vein thrombus can cause back up into the colon and mild peritonitis or diverticular disease. She is very grateful that we discovered this problem and were able to treated effectively. Return office visit in 3 months [facility] Medical History Encounter for annual routine gynecological examination Encounter for management and injection of depo-Provera Subchorionic hemorrhage in first trimester Coccygeal pain Hematuria Surgical History No pertinent past surgical history Family History Paternal Grandfather Alzheimer's dementia Paternal Aunt Breast cancer Maternal Aunt Colon polyps Paternal Grandfather Stomach ulcer Social History Household Members: Spouse and Children Housing: House Are you a primary director of critical care to a significant other at home: No Do you presently have visiting nurse or other home services: No Alcohol intake: never Patient Tobacco Use Status: Never used Tobacco Substance Use Type: Marijuana Agree to transfusion: Yes service: No 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al status: unemployed 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 Sexual orientation: Straight/Heterosexual Gender identity: Female Female Reproductive History Menstrual Age of Menarche: 16 Review of Systems Const Denies fatigue, Denies fever(s), Denies night sweats, Denies poor appetite and Denies weight loss ENT Reports Normal hearing present, Denies dental pain, Denies dysphagia, Denies hearing loss, Denies mouth pain, Denies odynophagia, Denies throat swelling, Denies tongue swelling and Reports other (Dentition adequate) Card Reports no additional complaints Resp Reports no additional complaints GI Details: Denies abdominal pain, Denies melena, Denies bloating, Denies hematochezia, Denies constipation, Denies GI cramping, Denies dysphagia, Denies excessive flatus, Denies early satiety, Denies heartburn, Denies diarrhea, Denies nausea, Denies odynophagia, Denies vomiting and Denies hematemesis Skin/Breast Denies pruritus, Denies lesions, Denies rash and Denies jaundice Neuro Reports Normal hearing present and Denies Abnormal speech present Endo Denies fatigue Aller/Immun Denies throat swelling and Denies tongue swelling Physical Exam Vital Signs: BMI result Body Mass Index 29.4 Const General: cooperative, no acute distress, well developed and well groomed Nutritional Appearance: well nourished and overweight Orientation/consciousness: oriented to person, oriented to place and oriented to time Limitations: No language barrier HEENT Head: Yes normocephalic and Yes atraumatic Eyes General: appearance normal, both eyes and all related structures Pupils: Equal, round and reactive pupils present Neck Neck: Yes normal visual inspection and Yes no lymphadenopathy Thyroid: Thyroid normal Resp Effort & Inspection: normal respiratory effort and able to speak in complete sentences Auscultation: clear to auscultation bilaterally Cardio Rate: regular rate Rhythm: regular rhythm Heart sounds: Normal, physiologic split S2 sound present Peripheral pulses: radial pulses present and posterior tibial pulses present GI Inspection: No distended, No Abdominal panniculus present and Yes obesity Palpation (GI): Soft to palpation, nontender, no guarding, not rigid and No hepatosplenomegaly present Percussion: Yes normal to percussion Auscultation: normal bowel sounds Rectal Exam - Female: deferred Skin General skin exam: no rashes or lesions noted, turgor normal, skin not dry, no jaundice, No spider nevi and no striae Rashes: no rashes Nails: normal Neuro General: oriented to person, oriented to place and oriented to time Cranial nerves: Yes Equal, round and reactive pupils present and Yes Normal hearing present Speech: No Abnormal speech present Extrem General: Yes normal to inspection, No clubbing, No cyanosis and No edema Psych Appearance: grossly normal and well kempt Mental Status: mental status grossly normal Speech and movement: Normal speech and movement present Affect: normal affect Attitude: cooperative Thought process: Normal thought process present and not confabulating Thought content: Normal thought content present Insight: Limited insight present (Psych) Judgement: Limited judgement present (Psych) Results Reviewed Results Reviewed: COLONOSCOPY 06/01/24 Findings: Terminal Ileum: Not evaluated Cecum: Not evaluated Ascending Colon: A 10 mm sessile polyp in the distal ascending colon - removed with a cold snare Transverse Colon: A 12 mm sessile polyp in the distal transverse colon - removed with a hot snare Descending Colon: Normal Sigmoid Colon: Moderate diverticulosis Rectum: Normal Ano-rectum: Small non-bleeding internal hemorrhoids Impression and Post Procedure Diagnosis: Endoscopy Findings: STOMACH: Mild diffuse gastric erythema - biopsies were obtained from the antrum. DUODENUM: Normal - biopsied to check for celiac sprue Colonoscopy Findings: Two medium sized polyps were removed Random biopsies were obtained from right and left colon to check for microscopic Moderate diverticulosis seen in the sigmoid colon small hemorrhoids on retroflexed exam. Plan: Pt has a FU appointment on 06/18/24 with Julienne Mays NP. Repeat Colonoscopy in 3-5 years if polyps are adenomatous and 10 year if polyps are hyperplastic. (needs adult colonoscope for future colonoscopies) Pt was placed on colonoscopy recall list. Above findings were reviewed with the patient and relevant handouts were given and the discharge area. Consider further evaluation with small-bowel enterography if patient continues to have abdominal pain BIOPSIES SHOWED: A. Small bowel, biopsy: Small intestinal mucosa within normal limits; negative for celiac disease. B. Stomach, antrum, biopsy: Antral-type and oxyntic mucosa with mild chronic inactive inflammation; no Helicobacter organisms seen. C. Colon, transverse, polypectomy: Tubular adenoma; negative for high-grade dysplasia or carcinoma. D. Colon, right, biopsy: Colonic mucosa within normal limits; negative for microscopic colitis. E. Colon, ascending, polypectomy: Tubular adenoma; negative for high-grade dysplasia or carcinoma. F. Colon, random left, biopsy: Colonic mucosa within normal limits; negative for microscopic colitis. CT ABDOMEN AND PELVIS 06/11/24 FINDINGS: LUNG BASES: The visualized lung bases are unremarkable. LIVER, GALLBLADDER, AND BILIARY TREE: The liver is normal in size and contour. No suspicious hepatic lesion or biliary ductal dilatation is present. The gallbladder is unremarkable with no evidence of radiopaque gallstones, gallbladder wall thickening, or obvious pericholecystic inflammatory changes. PANCREAS: Unremarkable. SPLEEN: Unremarkable. ADRENAL GLANDS: Unremarkable. KIDNEYS AND URETERS: The kidneys are symmetric in size and enhancement. No hydronephrosis. No perinephric stranding. BLADDER: Decompressed limiting evaluation. GASTROINTESTINAL TRACT: Small and large bowel loops are of normal caliber. No small bowel obstruction. Appendix is within normal limits. ABDOMINAL WALL: Small fat-containing umbilical hernia. LYMPH NODES: No bulky lymphadenopathy. VASCULAR: Normal caliber abdominal aorta. 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 PELVIC VISCERA: Unremarkable. OSSEOUS STRUCTURES: No destructive bone lesions. CT/CT abdomen pelvis w IV con IMPRESSION: Thrombosis of the right gonadal vein. Findings are reviewed and discussed with Dr. Mays at 11:58 AM on 06/11/2024. Assessment & Plan Assessment & Plan (1) Tubular adenoma of colon: Comment: 05/2024 scope= 2 TA is repeat in 5 years Code(s): D12.6 - Benign neoplasm of colon, unspecified Category: Medical (2) Thrombosis of ovarian vein: Code(s): I82.890 - Acute embolism and thrombosis of other specified veins Category: Medical (3) Chronic idiopathic constipation: Code(s): K59.04 - Chronic idiopathic constipation Category: Medical Plan She is agreeable to a 5 year follow-up. The procedure was well tolerated. The results were explained and the patient is agreeable to the follow-up interval as stated. The bowel pattern has returned to normal. Education was provided to tell any 1st degree relatives about their findings to be sure that they are screened by age 45. Educated that they will be put on a recall list when it is time for their repeat scope but should they move out of state or away from the hospital they will need to remember along with their primary to repeat the procedure in a timely fashion to avoid any adverse complications. SHE WAS STARTED ON XARELTO AND HAS HAD QUITE AN improvement in her pain. Actually she started improving after her antibiotic therapy which is not uncommon since a gonadal vein thrombus can cause back up into the colon and mild peritonitis or diverticular disease. She is very grateful that we discovered this problem and were able to treated effectively. Return office visit in 3 months Coding Level of Care Code Est Pt Level 4 (74817) Diagnoses Tubular adenoma of colon D12.6 Thrombosis of ovarian vein I82.890 Chronic idiopathic constipation K59.04 Time Spent (min) 33
[2024-06-18 11:49] VITALS: BMI 29.4
== END 2024-06-18 13:04 | disposition home or self-care (01) ==
PROVIDERS: PCP Nurse Practitioner Family; Visit Provider Nurse Practitioner
DX: D12.6 Benign neoplasm of colon, unspecified (principal); I82.890 Acute embolism and thrombosis of other specified veins; K59.04 Chronic idiopathic constipation
CPT/HCPCS: 99214

== ENCOUNTER → 2024-06-18 11:42 | Outpatient (BNVA) | payer BC, SELFPAY | PROVIDERS: PCP Nurse Practitioner Family; Visit Provider Nurse Practitioner ==

== ENCOUNTER → 2024-07-24 13:43 | Outpatient (BNV) | payer BC, SELFPAY | PROVIDERS: PCP Nurse Practitioner Family; Visit Provider Internal Medicine Medical Oncology | DX: I82.890 Acute embolism and thrombosis of other specified veins (principal) | CPT/HCPCS: 99214 ==

== ENCOUNTER 2024-07-27 14:34 | Outpatient (REF) | payer BC, SELFPAY ==
--- NOTE | ~2024-07-27 | US_ITS ---
EXAMINATION: US PELVIS CLINICAL INFORMATION: Pelvic pain with history of gonadal vein thrombosis on the right COMPARISON: CT abdomen pelvis 06/10/2024 TECHNIQUE: Ultrasound of the pelvis is performed using both transabdominal and transvaginal transducers along with Doppler. Transvaginal imaging is performed due to inadequate visualization transabdominally. FINDINGS: Uterus: The uterus is anteverted and measures 8.2 x 3.5 x 4.8 cm. The double wall endometrial thickness is 3 mm. The uterus is smooth in contour and has normal myometrial echogenicity. No visible fibroid. Adnexa: Both ovaries are visualized. There is normal color flow to the adnexa with mildly prominent veins. There is no ovarian torsion. There is no pelvic ascites or fluid collection. Right ovary measures 3.2 x 1.9 x 2.0 cm. Left ovary measures 2.7 x 1.6 x 1.3 cm. US/US pelvic ovarian doppler IMPRESSION: No significant abnormality is seen. Electronically signed by: Solo Kiser MD 07/27/2024 03:46 PM EDT
--- NOTE | ~2024-07-27 | US_ITS ---
EXAMINATION: US PELVIS CLINICAL INFORMATION: Pelvic pain with history of gonadal vein thrombosis on the right COMPARISON: CT abdomen pelvis 06/10/2024 TECHNIQUE: Ultrasound of the pelvis is performed using both transabdominal and transvaginal transducers along with Doppler. Transvaginal imaging is performed due to inadequate visualization transabdominally. FINDINGS: Uterus: The uterus is anteverted and measures 8.2 x 3.5 x 4.8 cm. The double wall endometrial thickness is 3 mm. The uterus is smooth in contour and has normal myometrial echogenicity. No visible fibroid. Adnexa: Both ovaries are visualized. There is normal color flow to the adnexa with mildly prominent veins. There is no ovarian torsion. There is no pelvic ascites or fluid collection. Right ovary measures 3.2 x 1.9 x 2.0 cm. Left ovary measures 2.7 x 1.6 x 1.3 cm. US/US pelvic and transvaginal IMPRESSION: No significant abnormality is seen. Electronically signed by: Solo Kiser MD 07/27/2024 03:46 PM EDT
== END 2024-07-27 14:35 | disposition home or self-care (01) ==
LOC: HO.US 14:34
PROVIDERS: PCP Nurse Practitioner Family; Visit Provider Internal Medicine Medical Oncology
DX: R10.2 Pelvic and perineal pain (principal); Z86.718 Personal history of other venous thrombosis and embolism
CPT/HCPCS: 76830; 76856; 93975

== ENCOUNTER 2024-10-19 17:22 | Emergency (ER) | payer BC, SELFPAY ==
[2024-10-19 18:08] VITALS: BP 125/90; PULSE 84; RESP 16; TEMP 36.6; O2SAT 100; BMI 26.9
--- NOTE | 2024-10-19 18:19 | ECG_ITS ---
Test Reason : DVT Blood Pressure : / mmHG Vent. Rate : 072 BPM Atrial Rate : 072 BPM P-R Int : 158 ms QRS Dur : 100 ms QT Int : 368 ms P-R-T Axes : 036 -30 022 degrees QTc Int : 402 ms Normal sinus rhythm Left axis deviation Abnormal ECG When compared with ECG of 11-JUN-2024 12:59, No significant change was found Referred By: Alon Saba Electronically Signed By:Star Aly
--- NOTE | 2024-10-19 18:19 | ED.GENADULT ---
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 She has followed up with hematology. No specific additional diagnoses has been made apixaban. The patient has been having problems with pains on her left abdomen for a very long time. She is quite vague as to how long she has been having these problems but she seems to indicate several months if not years. The patient says that she has had pain in her left upper abdomen for several months that has been more pronounced over the last 2 weeks. She has also had persistent low-grade vaginal bleeding and she thought she looked pale emergency room because of these symptoms. She has had no fever, sweats, chills. She has had no change in her appetite. No nausea or vomiting. No diarrhea. Related Data Home Medications ?Medication ?Instructions ?Recorded ?Confirmed etonogestrel 68 mg subdermal 68 mg subdermal DAILY 04/02/24 07/24/24 implant (Nexplanon) albuterol sulfate 90 mcg/actuation 2 puff inhalation Q6H 05/19/24 07/24/24 aerosol inhaler vit no.95-ferrous 1 tab PO DAILY 06/18/24 07/24/24 fumarate 28 mg-folic acid 800 mcg tablet Previous Rx's ?Medication ?Instructions ?Recorded apixaban 5 mg (74 tabs) tablets in 5 mg PO BID #60 ea 07/14/24 a dose pack (Eliquis DVT-PE Treat 30D Start) Allergies Allergy/AdvReac Type Severity Reaction Status Date / Time No Known Allergies Allergy Verified 10/19/24 18:13 [No Known Allergies*] Review of Systems Review of Systems: Yes all other systems are reviewed and are negative PMFSH Past Medical History Medical History Encounter for annual routine gynecological examination Encounter for management and injection of depo-Provera Subchorionic hemorrhage in first trimester Coccygeal pain Hematuria Surgical History No pertinent past surgical history Family History Family History Paternal Grandfather Alzheimer's dementia Paternal Aunt Breast cancer Maternal Aunt Colon polyps Paternal Grandfather Stomach ulcer Social History Social History (Updated 07/24/24 @ 13:52 by Vijay Dodson) Household Members: Spouse and Children Housing: House Are you a primary home care specialist to a significant other at home: No Do you presently have visiting nurse or other home services: No Alcohol intake: never Patient Tobacco Use Status: Never used Tobacco Smoked in Last 30 Days: No Use of substances other than those prescribed or required for medical reasons: No Substance Use Type: Marijuana Agree to transfusion: Yes Advance Directives: No Advance Directives Information Provided: No Do you have a plan to hurt others: No Plan Patient : No service: No 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al status: unemployed 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 Sexual orientation: Straight/Heterosexual Gender identity: Female Physical Exam ED Vital Signs: Vital Signs - 24 hr 10/19/24 18:08 10/19/24 22:00 10/19/24 22:39 Temperature 97.9 F 98.3 F 98.3 F Pulse Rate 84 76 76 Respiratory Rate 16 20 20 Blood Pressure 125/90 H 138/79 138/79 Pulse Oximetry 100 100 100 Oxygen Delivery Method Room Air Room Air Room Air BMI result Body Mass Index 26.9 Const General: cooperative, healthy appearing, no acute distress, well developed, alert, awake and Physically active [facility] Head: Yes normal to inspection Face and sinus: Yes normal facial exam Mouth: Normal oral and palatal mucosa present and moist mucous membranes Throat: Yes posterior oropharynx normal Eyes General: appearance normal, both eyes and all related structures Alignment and Position: alignment normal Periorbital: periorbital findings normal Eyelids: Yes eyelids normal Conjunctivae: conjunctivae normal Sclerae: sclerae normal EOM: EOMs intact bilaterally Neck Neck: Yes full ROM and Yes no lymphadenopathy Resp Effort & Inspection: normal respiratory effort Auscultation: clear to auscultation bilaterally Cardio Rate: regular rate Rhythm: regular rhythm Heart sounds: S1 normal heart sound present and S2 normal heart sound present GI Other: the abdomen was soft. I did not feel there was any significant tenderness. Skin Other: Skin is dry and unremarkable Neuro Other: the patient is awake and alert with normal mental status. Cranial nerves are grossly intact. She moves her extremities normally. She has a normal gait. Extrem Other: No peripheral edema. No calf swelling or tenderness. No asymmetry. Course Course Course Narrative: RME: 33 yold female presents to the ED for vaginal bleeding for a month and is on eilquis for DVT. Patient states mild luq pain and chest pain. labs, EKG ordered. Medical Decision Making Medical Decision Making MDM Narrative: The patient is a 33-year-old female who was found to have an ovarian vein thrombus 4 months ago. She has been on anticoagulation since then. She has followed up with Hematology and with other specialists. She comes the emergency room today I think primarily because of concern that she felt she looked pale and was concerned that she might be anemic. 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 She also describes what sounds to be like a very chronic left-sided abdominal pain syndrome that has eluded any specific diagnosis. Clinically the patient's physical exam seems very benign and reassuring. She has some blood in her urine but I think this is more likely related to her description of her mild vaginal bleeding than to a kidney stone. Clinically her presentation does not seem suggestive of a kidney stone. She is not exhibiting signs of ureteral colic and she has no CVA percussion tenderness. The patient's blood counts are stable. I explained to the patient we could do a CT scan to evaluate her left-sided abdominal pain but that I had a very low suspicion that we will likely to find an etiology given that she has had this pain for many many months and previous workups have not elucidated any diagnosis that and she has such benign labs today. Ultimately we decided to forego CT scanning. She was reassured. She should follow up with Gynecology and hematology discuss how long she needs to be on anticoagulation. Lab Data 10/19/24 19:49 10/19/24 19:49 Labs: Lab Results 10/19/24 Range/Units 19:49 WBC 5.6 (4.8-10.8) X10*3/uL RBC 4.62 (4.20-5.50) X10*6/uL Hgb 13.2 (12.0-16.0) g/dl Hct 39.0 (37.0-47.0) % MCV 84.4 (80.0-98.0) fL MCH 28.6 (27.0-33.0) pg MCHC 33.8 (31.0-35.0) g/dl RDW 13.3 (11.0-16.0) % Plt Count 311 (160-400) X10*3/uL MPV 8.7 L (9.4-12.3) fL Immature Gran % (Auto) 0.2 (0.0-0.4) % Neut % (Auto) 42.8 L (45-73) % Lymph % (Auto) 46.7 H (20-40) % [place] % (Auto) 6.4 (2-11) % Eos % (Auto) 3.2 (0-4) % Baso % (Auto) 0.7 (0-2) % Lymph # (Auto) 2.6 (1.2-4.9) X10*3/uL [place] # (Auto) 0.4 (0.1-1.2) X10*3/uL Eos # (Auto) 0.2 (0.0-0.4) X10*3/uL Baso # (Auto) 0.0 (0.0-0.2) X10*3/uL Abs Immat Gran (auto) 0.01 (0.00-0.03) X10*3/uL Absolute Neuts (auto) 2.4 (2.0-8.3) x10*3/uL Absolute Nucleated RBC 0.000 (0.0-0.012) X10*3/uL Nucleated RBC % (auto) 0.0 (0.0-0.2) /100WBC PT 12.7 H (10.9-12.4) SEC INR 1.1 (0.9-1.1) APTT 30.3 (26.0-36.8) SEC Sodium 140 (135-145) mmol/L Potassium 3.4 (3.3-5.1) mmol/L Chloride 108 (96-108) mmol/L Carbon Dioxide 24 (22-29) mmol/L Anion Gap 13 (12-20) BUN 13 (9-16) mg/dL Creatinine 0.71 (0.5-1.4) mg/dL Estim Creat Clear Calc 119.2 Estimated GFR > 60 Random Glucose 89 (60-115) mg/dL Calcium 9.3 (8.4-10.2) mg/dL Total Bilirubin 0.6 (0.0-1.0) mg/dL AST 20 (5-31) U/L ALT 22 (0-31) U/L Alkaline Phosphatase 42 (39-117) U/L Troponin I High Sens < 2.7 (<3.5-17.0) ng/L Total Protein 7.7 (6.5-8.0) g/dL Albumin 4.4 (3.5-5.0) g/dL Beta HCG, Quant < 2 mIU/mL Urine Color Yellow Urine Appearance Clear Urine pH 5.5 (5.0-9.0) Ur Specific [place] 1.025 (1.005-1.025) Urine Protein Negative (Neg-Trace) mg/dL Urine Glucose (UA) Negative (Negative) mg/dL Urine Ketones Trace (Negative) mg/dL Urine Blood Large (3+) H (Negative) Urine Nitrite Negative (Negative) Ur Leukocyte Esterase Negative (Negative) Urine RBC 6-10 H (0-2) /HPF Urine WBC 0-5 (0-5) /HPF Ur Squamous Epith Cells 3-5 (0-2) /HPF Urine Bacteria None Seen (None Seen) Hyaline Casts 0-2 (0-2) /LPF Discharge Plan Discharge Clinical Impression: Left sided abdominal pain, Vaginal bleeding Patient Disposition: Home, Self-Care Additional Instructions: Your blood testing in the emergency room today seems very reassuring. My suspicion for any acutely dangerous process is very low. Please continue your regular medications. Please contact the Gynecology office (Dr. Jhaveri's office) tomorrow morning to try to make a follow up appointment to discuss the vaginal bleeding you have been experiencing. Please keep your appointment with your regular doctor early next month. Return to the emergency room if you feel significantly worse. Prescriptions: No Action Eliquis DVT-PE Treat 30D Start 5 mg (74 tabs) tablets,dose pack 5 mg PO BID Qty: 60 3RF albuterol sulfate 90 mcg/actuation HFA aerosol inhaler 2 puff inhalation Q6H PNV cmb#95-ferrous fumarate-FA 28 mg iron- 800 mcg tablet 1 tab PO DAILY Nexplanon 68 mg implant 68 mg subdermal DAILY Referrals: Michelle Seth NP [Primary Care Provider] - (left sided pain, vaginal bleeding) Alexandru Jhaveri MD [Physician] - (persistent vaginal bleeding, Nexplanon device) Interventions: ED Discharge Assessment Last Done: 10/19/24 22:39 Discharge Date/Time: 10/19/24 22:41 Print Language: Yi
[2024-10-19 20:03] LABS: MANUAL DIFF FLAG NO
[2024-10-19 20:08] LABS: Basophils Percent Auto 0.7 % (0-2); Eosinophils Absolute Auto 0.2 X10*3/uL (0.0-0.4); Eosinophils Percent Auto 3.2 % (0-4); Hemoglobin 13.2 g/dl (12.0-16.0); Imm Gran Abs Auto 0.01 X10*3/uL (0.00-0.03); Imm Gran Pct Auto 0.2 % (0.0-0.4); Lymphocytes Absolute Auto 2.6 X10*3/uL (1.2-4.9); Lymphocytes Percent Auto 46.7 % (20-40); Mean Corpuscular HGB Conc 33.8 g/dl (31.0-35.0); Mean Corpuscular Hemoglobin 28.6 pg (27.0-33.0); Mean Corpuscular Volume 84.4 fL (80.0-98.0); Mean Platelet Volume 8.7 fL (9.4-12.3); Monocytes Absolute Auto 0.4 X10*3/uL (0.1-1.2); Monocytes Percent Auto 6.4 % (2-11); Neutrophils Absolute Auto 2.4 x10*3/uL (2.0-8.3); Neutrophils Percent Auto 42.8 % (45-73); Platelet Count 311 X10*3/uL (160-400); Red Blood Count 4.62 X10*6/uL (4.20-5.50); Red Cell Distribution Width 13.3 % (11.0-16.0); White Blood Count 5.6 X10*3/uL (4.8-10.8)
[2024-10-19 20:10] LABS: Appearance Urine Clear; Color Urine Yellow; Glucose Urine UA Negative (Negative); Leukocyte Esterase Urine Negative (Negative); Nitrite Urine Negative (Negative); PH 5.5 (5.0-9.0); Specific Gravity - Urine 1.025 (1.005-1.025); UMIC TRIGGER UACC YES; Urine Blood Large (3+) (Negative); Urine Ketones Trace mg/dL (Negative); Urine Protein Negative (Neg-Trace)
[2024-10-19 20:15] LABS: Bacteria Urine None Seen (None Seen); Hyaline Casts Urine 0-2 /LPF (0-2); WBC Urine 0-5 /HPF (0-5)
[2024-10-19 20:16] LABS: INTERNATIONAL NORM RATIO 1.1 (0.9-1.1); Prothrombin Time 12.7 SEC (10.9-12.4)
[2024-10-19 20:18] LABS: Partial Thromboplastin Time 30.3 SEC (26.0-36.8)
[2024-10-19 20:34] LABS: Alanine Aminotransferase 22 U/L (0-31); Albumin Level 4.4 g/dL (3.5-5.0); Alkaline Phosphatase 42 U/L (39-117); Aspartate Amino Transferase 20 U/L (5-31); Bilirubin Total 0.6 mg/dL (0.0-1.0); Blood Urea Nitrogen 13 mg/dL (9-16); Calcium 9.3 mg/dL (8.4-10.2); Carbon Dioxide 24 mmol/L (22-29); Chloride 108 mmol/L (96-108); Creatinine Clr Calc Pharmacy 119.2; Estimated Glomerular Filt Rate > 60; Glucose Random 89 mg/dL (60-115); Potassium 3.4 mmol/L (3.3-5.1); Sodium 140 mmol/L (135-145); Total Protein 7.7 g/dL (6.5-8.0)
[2024-10-19 20:40] LABS: Troponin-I High Sensitivity < 2.7 ng/L (<3.5-17.0)
[2024-10-19 22:00] VITALS: BP 138/79; PULSE 76; RESP 20; TEMP 36.8; O2SAT 100
--- NOTE | 2024-10-19 22:03 | PC.NURSE ---
pt from home, a&ox4, respirations even and unlabored. pt reporting intermittent vaginal bleeding and lower abdominal pain x3 months.pt reports abdominal pain is 6/10 and reports it typically does not increase. pt reports hx of blood clots in uterus and reports previously seeing OB and OB removing polyps in uterua. vss. provider at bedside.
[2024-10-19 22:04] LABS: Anion Gap 13 (12-20)
[2024-10-19 22:16] LABS: HCG Quantitative < 2 mIU/mL
[2024-10-19 22:39] VITALS: BP 138/79; PULSE 76; RESP 20; TEMP 36.8; O2SAT 100
== END 2024-10-19 22:41 | disposition home or self-care (01) ==
PROVIDERS: Physician Assistant; Emergency Provider Emergency Medicine; PCP Nurse Practitioner Family
DX: R10.12 Left upper quadrant pain (principal); N93.9 Abnormal uterine and vaginal bleeding, unspecified; Z86.718 Personal history of other venous thrombosis and embolism; Z79.01 Long term (current) use of anticoagulants
CPT/HCPCS: 36415; 80053; 81001; 84484; 84702; 85025; 85610; 85730; 93005; 99283; 99285

== ENCOUNTER → 2024-10-19 18:19 | Outpatient (BNV) | payer BC, SELFPAY | PROVIDERS: Emergency Provider Emergency Medicine; PCP Nurse Practitioner Family; Visit Provider Internal Medicine Cardiovascular Disease | DX: R94.31 Abnormal electrocardiogram [ECG] [EKG] (principal); R10.9 Unspecified abdominal pain | CPT/HCPCS: 93010 ==

== ENCOUNTER 2025-01-13 15:57 | Outpatient (REF) | payer BC, SELFPAY ==
--- NOTE | ~2025-01-13 | CT_ITS ---
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 The gallbladder and solid organs are within normal limits. No renal stones. No bowel obstruction, pneumoperitoneum, or pneumatosis. There is a circumscribed thin-walled homogeneous left adnexal 3.2 x 2.7 cm lesion, possible ovarian cyst. Vascular structures are patent with prominent parametrial veins. Pelvic contents otherwise unremarkable. Normal appendix. No acute fracture. IMPRESSION: No acute findings. This document has been electronically signed by: Lex Ryan MD on 01/15/2025 07:55:12
[2025-01-13] MEDS: iohexoL 350 MG/ML 100 ML INFUS..BTL IV (16:43)
== END 2025-01-13 15:58 | disposition home or self-care (01) ==
LOC: HO.CT 15:57
PROVIDERS: PCP Nurse Practitioner Family; Visit Provider Internal Medicine Medical Oncology
DX: I82.890 Acute embolism and thrombosis of other specified veins (principal)
CPT/HCPCS: 74177; Q9967

== ENCOUNTER → 2025-01-13 15:59 | Outpatient (BNV) | payer BC, SELFPAY | PROVIDERS: PCP Nurse Practitioner Family; Visit Provider Specialist | DX: I82.890 Acute embolism and thrombosis of other specified veins (principal) | CPT/HCPCS: 74177 ==

== ENCOUNTER 2025-01-22 16:25 | Outpatient (AMB) | payer BC, SELFPAY ==
--- NOTE | 2025-01-22 16:26 | MHC.OFFVIS ---
Vital Signs 01/22/25 16:30 Height 5 ft 6 in Weight 157 lb 13.616 oz BMI 25.5 Intake Visit Reasons: 3 mo abdominal pain Intake Note: Patient in office today in follow up of LUQ abdominal pain. CC: Patient reports that about 4 years ago she was told that her spleen was enlarged. She continues having LUQ abd pain that are now more frequent. She also reports nausea sometimes depending on what she eats. Wild Life Manager Required: No Accompanied by: Self / Same As Patient Allergies No Known Allergies [No Known Allergies*] Allergy (Verified 01/22/25 16:46) HPI HPI 3 mo abdominal pain: Details: Assessment & Plan (1) Tubular adenoma of colon: Comment: 05/2024 scope= 2 TA is repeat in 5 years Code(s): D12.6 - Benign neoplasm of colon, unspecified Category: Medical (2) Thrombosis of ovarian vein: Code(s): I82.890 - Acute embolism and thrombosis of other specified veins Category: Medical (3) Chronic idiopathic constipation: Code(s): K59.04 - Chronic idiopathic constipation Category: Medical Plan She is agreeable to a 5 year follow-up. The procedure was well tolerated. The results were explained and the patient is agreeable to the follow-up interval as stated. The bowel pattern has returned to normal. Education was provided to tell any 1st degree relatives about their findings to be sure that they are screened by age 45. Educated that they will be put on a recall list when it is time for their repeat scope but should they move out of state or away from the hospital they will need to remember along with their primary to repeat the procedure in a timely fashion to avoid any adverse complications. SHE WAS STARTED ON XARELTO AND HAS HAD QUITE AN improvement in her pain. Actually she started improving after her antibiotic therapy which is not uncommon since a gonadal vein thrombus can cause back up into the colon and mild peritonitis or diverticular disease. She is very grateful that we discovered this problem and were able to treated effectively. Return office visit in 3 months TODAY'S VISIT Her right upper quadrant pain continues, it waxes and wanes but has never changed - this goes back prior to her ovarian thrombus. Neg EGD/colonoscopy, Neg CT since thrombus, Neg Chest CT, she questions spleen but no trauma and not imaging problems. Will get XR thoracic spine and rib XR r/o musculoskeletal problems. She is taking benefiber, no CIC or diarrhea. return office visit next available [facility] Medical History (Updated 01/25/25 @ 17:11 by PAVAN Arciniega) SI (sacroiliac) joint dysfunction care, subsequent in second trimester Nausea Chronic idiopathic constipation Encounter for annual routine gynecological examination Encounter for management and injection of depo-Provera Subchorionic hemorrhage in first trimester Coccygeal pain Hematuria Surgical History (Updated 07/24/24 @ 13:56 by Teresa Kenyon MD) No pertinent past surgical history Family History Paternal Grandfather Alzheimer's dementia Paternal Aunt Breast cancer Maternal Aunt Colon polyps Paternal Grandfather Stomach ulcer Social History (Updated 07/24/24 @ 13:52 by Vijay Dodson) Household Members: Spouse and Children Housing: House Are you a primary pharmacist critical care to a significant other at home: No Do you presently have visiting nurse or other home services: No Alcohol intake: never Patient Tobacco Use Status: Never used Tobacco Substance Use Type: Marijuana Agree to transfusion: Yes service: No 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al status: unemployed 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 Sexual orientation: Straight/Heterosexual Gender identity: Female Female Reproductive History Menstrual Age of Menarche: 16 Review of Systems Const Denies fatigue, Denies fever(s), Denies night sweats, Denies poor appetite and Denies weight loss ENT Reports Normal hearing present, Denies dental pain, Denies dysphagia, Denies hearing loss, Denies mouth pain, Denies odynophagia, Denies throat swelling, Denies tongue swelling and Reports other (Dentition adequate) Card Reports chest pain Resp Reports no additional complaints GI Details: Denies abdominal pain, Denies melena, Denies bloating, Denies hematochezia, Denies constipation, Denies GI cramping, Denies dysphagia, Denies excessive flatus, Denies early satiety, Denies heartburn, Denies diarrhea, Denies nausea, Denies odynophagia, Denies vomiting and Denies hematemesis Reports flank pain Musc Reports back pain Skin/Breast Denies pruritus, Denies lesions, Denies rash and Denies jaundice Neuro Reports Normal hearing present and Denies Abnormal speech present Endo Denies fatigue Aller/Immun Denies throat swelling and Denies tongue swelling Physical Exam Vital Signs: BMI result Body Mass Index 25.5 Const General: cooperative, no acute distress, well developed and well groomed Nutritional Appearance: average body habitus and well nourished Orientation/consciousness: oriented to person, oriented to place and oriented to time Limitations: No language barrier HEENT Head: Yes normocephalic and Yes atraumatic Eyes General: appearance normal, both eyes and all related structures Pupils: Equal, round and reactive pupils present Neck Neck: Yes normal visual inspection and Yes no lymphadenopathy Thyroid: Thyroid normal Chest Chest palpation & inspection: normal inspection of the chest and tenderness costochondral junction Resp Effort & Inspection: normal respiratory effort and able to speak in complete sentences Auscultation: clear to auscultation bilaterally Cardio Rate: regular rate Rhythm: regular rhythm Heart sounds: Normal, physiologic split S2 sound present Peripheral pulses: radial pulses present and posterior tibial pulses present GI Inspection: No distended and No Abdominal panniculus present Palpation (GI): Soft to palpation, Tenderness to palpation present (GI) in the RUQ, no guarding, not rigid and No hepatosplenomegaly present Percussion: Yes normal to percussion Auscultation: normal bowel sounds Rectal Exam - Female: deferred General: Yes CVA tenderness Back/Spine/Pelvis Back: CVA tenderness Skin General skin exam: no rashes or lesions noted, turgor normal, skin not dry, no jaundice, No spider nevi and no striae Rashes: no rashes Nails: normal Neuro General: oriented to person, oriented to place and oriented to time Cranial nerves: Yes Equal, round and reactive pupils present and Yes Normal hearing present Speech: No Abnormal speech present Extrem General: Yes normal to inspection, No clubbing, No cyanosis and No edema Psych Appearance: grossly normal and well kempt Mental Status: mental status grossly normal Speech and movement: Normal speech and movement present Affect: normal affect Attitude: cooperative Thought process: Normal thought process present and not confabulating Thought content: Normal thought content present Insight: Limited insight present (Psych) Judgement: Limited judgement present (Psych) Assessment & Plan Assessment & Plan (1) Thoracic back pain: Code(s): M54.6 - Pain in thoracic spine Category: Medical (2) Rib pain: Code(s): R07.81 - Pleurodynia Category: Medical Plan Her right upper quadrant pain continues, it waxes and wanes but has never changed - this goes back prior to her ovarian thrombus. Neg EGD/colonoscopy, Neg CT since thrombus, Neg Chest CT, she questions spleen but no trauma and not imaging problems. Will get XR thoracic spine and rib XR r/o musculoskeletal problems. She is taking benefiber, no CIC or diarrhea. return office visit next available Orders: Orders XR ribs BI 3V 01/22/25 M54.6 - Pain in thoracic spine, R07.81 - Pleurodynia XR thoracic spine 2V 01/22/25 M54.6 - Pain in thoracic spine, R07.81 - Pleurodynia Coding Level of Care Code Est Pt Level 3 (62040) Diagnoses Thoracic back pain M54.6 Rib pain R07.81
[2025-01-22 16:30] VITALS: BMI 25.5
== END 2025-01-22 17:01 | disposition home or self-care (01) ==
LOC: HO.HGI 16:26
PROVIDERS: PCP Nurse Practitioner Family; Visit Provider Nurse Practitioner
DX: M54.6 Pain in thoracic spine (principal); R07.81 Pleurodynia
CPT/HCPCS: 99213

== ENCOUNTER 2025-02-02 13:43 | Outpatient (AMB) | payer BC, SELFPAY ==
--- NOTE | 2025-02-02 13:47 | A.OFFVIS_ITS ---
Vital Signs 02/02/25 13:50 Height 5 ft 6 in Weight 157 lb BMI 25.3 BP 108/66 Intake Visit Reasons: Ovarian cyst per Plumber Apprentice Required: No Information Interpreted: non-clinical & clinical Accompanied by: Self / Same As Patient Allergies No Known Allergies [No Known Allergies*] Allergy (Verified 02/02/25 13:51) Is last menstrual period known: Yes Last menstrual period: 01/24/25 HPI Comments Details: Presenting referred for irregular menstrual cycles on Nexplanon inserted less than 3 years ago and finding of an ovarian cyst on CT scan 01/15/2025 CT scan showed the following: There is a circumscribed thin-walled homogeneous left adnexal 3.2 x 2.7 cm lesion, possible ovarian cyst. The patient was diagnosed with a ovarian vein thrombosis has been on Eliquis and recently was discontinued Last Pap smear in 06/17 was negative [facility] Medical History SI (sacroiliac) joint dysfunction care, subsequent in second trimester Nausea Chronic idiopathic constipation Encounter for annual routine gynecological examination Encounter for management and injection of depo-Provera Subchorionic hemorrhage in first trimester Coccygeal pain Hematuria Surgical History No pertinent past surgical history Family History Paternal Grandfather Alzheimer's dementia Paternal Aunt Breast cancer Maternal Aunt Colon polyps Paternal Grandfather Stomach ulcer Social History Household Members: Spouse and Children Housing: House Are you a primary career coach to a significant other at home: No Do you presently have visiting nurse or other home services: No Alcohol intake: never Patient Tobacco Use Status: Never used Tobacco Substance Use Type: Marijuana Agree to transfusion: Yes service: No 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al status: unemployed 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 Sexual orientation: Straight/Heterosexual Gender identity: Female Female Reproductive History Menstrual Age of Menarche: 16 Date of last menstrual period: 01/24/25 control method: implanted Review of Systems Const All systems reviewed & are unremarkable except as noted in HPI and below Physical Exam Vital Signs: Last Vital Signs BP 108/66 02/02/25 13:50 BMI result Body Mass Index 25.3 General: Yes no CVA tenderness External Female Exam: normal external appearance and normal appearance of the urethra Speculum Exam - Vagina: normal appearance of the vagina, normal palpation, no lesions and no masses Speculum Exam - Cervix: normal appearance of the cervix, normal palpation, no lesions, no masses and nontender Bimanual exam- vagina & uterus: normal bimanual exam, normal palpation, uterine size normal, normal palpation, uterine shape normal, No Cervical tenderness present and non-tender Bimanual Exam- Adnexa, other: normal adnexae Back/Spine/Pelvis Back: no CVA tenderness Assessment & Plan Assessment & Plan (1) Abnormal uterine bleeding (AUB): Comment: On Nexplanon Code(s): N93.9 - Abnormal uterine and vaginal bleeding, unspecified Category: Medical Plan: UPT done in the office was negative. Co testing done, GC and chlamydia taken CBC, TSH, HCG, and pelvic ultrasound ordered. Discussed with the patient the different causes of abnormal bleeding including thyroid disorders, uterine and ovarian pathology, endometrial hyperplasia, carcinoma and other potential causes. Discussed with the patient the work up including CBC (to r/o anemia), TSH, pelvic Ultrasound. All questions answered and the patient verbalized understanding. Instructed the patient to schedule a follow-up appointment in 2 weeks. (2) Ovarian cyst: Code(s): N83.209 - Unspecified ovarian cyst, unspecified side Category: Medical Plan: Discussed with the patient the finding on CT scan will order pelvic ultrasound. Instructions given the patient to schedule a pelvic ultrasound and a follow-up appointment within 2 weeks. All questions answered, the patient verbalized understanding Orders: Orders TSH reflex Free T4 Today N93.9 - Abnormal uterine and vaginal bleeding, unspecified Complete Blood Count no Diff Today N93.9 - Abnormal uterine and vaginal bleeding, unspecified US pelvic and transvaginal Today N93.9 - Abnormal uterine and vaginal bleeding, unspecified Coding Level of Care Code New Pt Level 3 (27789) Diagnoses Abnormal uterine bleeding (AUB) N93.9 Ovarian cyst N83.209
[2025-02-02 13:50] VITALS: BP 108/66; BMI 25.3
== END 2025-02-02 14:45 | disposition home or self-care (01) ==
LOC: HO.HWS 13:43
PROVIDERS: PCP Nurse Practitioner Family; Visit Provider Obstetrics & Gynecology
DX: N93.9 Abnormal uterine and vaginal bleeding, unspecified (principal); N83.209 Unspecified ovarian cyst, unspecified side; Z32.02 Encounter for pregnancy test, result negative
CPT/HCPCS: 99203

== ENCOUNTER 2025-02-02 13:43 | Outpatient (REF) | payer BC, SELFPAY ==
[2025-02-03 07:03] LABS: CT PCR NOT DETECTED (Not Detect.); NG PCR NOT DETECTED (Not Detect.)
[2025-02-08 14:47] LABS: HPV Genotype 16 Negative (Negative); HPV Genotype 18 Negative (Negative); HPV High Risk Negative (Negative)
== END 2025-02-02 13:44 | disposition home or self-care (01) ==
LOC: HO.LNP 13:43
PROVIDERS: PCP Nurse Practitioner Family; Visit Provider Obstetrics & Gynecology
DX: N93.9 Abnormal uterine and vaginal bleeding, unspecified (principal)
CPT/HCPCS: 81025; 87491; 87591; 87626; 88175

== ENCOUNTER 2025-03-02 13:45 | Outpatient (REF) | payer BC, SELFPAY ==
--- NOTE | ~2025-03-02 | US_ITS ---
EXAMINATION: US PELVIS TRANSABDOMINAL AND TRANSVAGINAL HISTORY: N93.9 - Abnormal uterine and vaginal bleeding, unspecified COMPARISON: Comparison is made with the prior examination dated 07/27/2024. TECHNIQUE: Transabdominal and endovaginal real-time 2D verduzco-scale ultrasound was performed. FINDINGS: Uterus: The uterus is normal in size, measuring 8.8 x 5.1 x 5.9 cm. Myometrium has a normal echotexture. No fibroids are identified. Endometrium: The endometrial stripe measures 6 mm in thickness. There are nabothian cysts in the cervix. Right ovary: The right ovary measures 4.9 x 2.8 x 3.3 cm. There is a 3.8 x 2.8 x 3.0 cm right ovarian cyst. Left ovary: The left ovary measures 2.7 x 1.6 x 1.9 cm. There is a 2.0 x 1.1 x 1.2 cm septated cyst. Pelvic fluid: none. Other: There are multiple dilated. A periuterine and pelvic vessels. US/US pelvic and transvaginal IMPRESSION: 1. Bilateral ovarian cysts, right greater than left, as described above. A follow-up examination in 6 weeks, at a different time in the patient's menstrual cycle, is recommended to document resolution. 2. Prominent pelvic vessels which can be seen in the setting of pelvic congestion syndrome. Clinical correlation is recommended. Electronically signed by: Scott Olson MD 03/02/2025 02:50 PM EDT
== END 2025-03-02 13:46 | disposition home or self-care (01) ==
LOC: HO.US 13:45
PROVIDERS: PCP Nurse Practitioner Family; Visit Provider Obstetrics & Gynecology
DX: N93.9 Abnormal uterine and vaginal bleeding, unspecified (principal)
CPT/HCPCS: 76830; 76856

== ENCOUNTER → 2025-03-02 13:47 | Outpatient (BNV) | payer BC, SELFPAY | PROVIDERS: PCP Nurse Practitioner Family; Visit Provider Radiology Diagnostic Radiology | DX: N83.201 Unspecified ovarian cyst, right side (principal); N83.202 Unspecified ovarian cyst, left side | CPT/HCPCS: 76830; 76856 ==

== ENCOUNTER 2025-04-21 07:55 | Outpatient (AMB) | payer BC, SELFPAY ==
--- NOTE | 2025-04-21 07:57 | A.OFFVIS_ITS ---
Vital Signs 04/21/25 07:58 Height 5 ft 6 in Weight 157 lb BMI 25.3 Intake Visit Reasons: US Follow up Allergies No Known Allergies (No Known Allergies*) Allergy (Verified 02/02/25 13:51) HPI Comments Details: Presenting for ultrasound follow-up with no complaints. Ultrasound done on 03/02/2025 showed the following Uterus: The uterus is normal in size, measuring 8.8 x 5.1 x 5.9 cm. Myometrium has a normal echotexture. No fibroids are identified. Endometrium: The endometrial stripe measures 6 mm in thickness. There are nabothian cysts in the cervix. Right ovary: The right ovary measures 4.9 x 2.8 x 3.3 cm. There is a 3.8 x 2.8 x 3.0 cm right ovarian cyst. Left ovary: The left ovary measures 2.7 x 1.6 x 1.9 cm. There is a 2.0 x 1.1 x 1.2 cm septated cyst. Pelvic fluid: none. Other: There are multiple dilated. A periuterine and pelvic vessels. US/US pelvic and transvaginal IMPRESSION: 1. Bilateral ovarian cysts, right greater than left, as described above. A follow-up examination in 6 weeks, at a different time in the patient's menstrual cycle, is recommended to document resolution. 2. Prominent pelvic vessels which can be seen in the setting of pelvic congestion syndrome. Clinical correlation is recommended. [facility] Medical History SI (sacroiliac) joint dysfunction care, subsequent in second trimester Nausea Chronic idiopathic constipation Encounter for annual routine gynecological examination Encounter for management and injection of depo-Provera Subchorionic hemorrhage in first trimester Coccygeal pain Hematuria Surgical History No pertinent past surgical history Family History Paternal Grandfather Alzheimer's dementia Paternal Aunt Breast cancer Maternal Aunt Colon polyps Paternal Grandfather Stomach ulcer Social History Household Members: Spouse and Children Housing: House Are you a primary director long term care to a significant other at home: No Do you presently have visiting nurse or other home services: No Alcohol intake: never Patient Tobacco Use Status: Never used Tobacco Substance Use Type: Marijuana Agree to transfusion: Yes service: No 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al status: unemployed 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 Sexual orientation: Straight/Heterosexual Gender identity: Female Female Reproductive History Menstrual Age of Menarche: 16 Review of Systems Const All systems reviewed & are unremarkable except as noted in HPI and below Reports as per HPI and Reports no additional complaints GI Reports no additional complaints Reports no additional complaints Physical Exam Vital Signs: BMI result Body Mass Index 25.3 Assessment & Plan Assessment & Plan (1) Complex ovarian cyst: Code(s): N83.299 - Other ovarian cyst, unspecified side Category: Medical Plan: Discussed with the patient the complex ovarian cyst by ultrasound. Discussed with the patient the Ultrasound findings, the main limitation of transvaginal ultrasonography alone as a diagnostic tool to distinguish benign from malignant masses relates to its lack of specificity and low positive predictive value for cancer. The differential diagnosis discussed with the patient includes the following but not limited to: benign and malignant gynecological and non-gynecological causes. Since ultrasound was done on 03/02/2025, recommended repeat ultrasound within few days and a follow-up appointment right afterwards. All questions answered, the patient verbalized understanding and agreed with the plan. Orders: Orders US pelvic and transvaginal Today N83.299 - Other ovarian cyst, unspecified side Coding Level of Care Code Est Pt Level 3 (88680) Diagnoses Complex ovarian cyst N83.299
[2025-04-21 07:58] VITALS: BMI 25.3
== END 2025-04-21 08:49 | disposition home or self-care (01) ==
LOC: HO.HWS 07:55
PROVIDERS: PCP Nurse Practitioner Family; Visit Provider Obstetrics & Gynecology
DX: N83.299 Other ovarian cyst, unspecified side (principal)
CPT/HCPCS: 99213

== ENCOUNTER 2025-04-21 07:55 | Outpatient (REF) | payer BC, SELFPAY ==
--- NOTE | ~2025-04-21 | XR_ITS ---
CLINICAL HISTORY: M54.6 - Pain in thoracic spine Thoracic spine three views Comparison: None provided Findings: No acute fracture or dislocation. Posterior alignment is normal. No significant degenerative change. No radiopaque foreign bodies. Impression: No acute processes This document has been electronically signed by: Jose M Franco MD on 04/21/2025 19:59:30
--- NOTE | ~2025-04-21 | XR_ITS ---
CLINICAL HISTORY: M54.6 - Pain in thoracic spine Bilateral ribs two views Comparison: None provided Findings: Lungs are clear without acute infiltrates. Heart size is normal. No pneumothorax. No acute fracture or dislocation in the rib cage. No significant focal bony abnormalities. Impression: No significant abnormalities This document has been electronically signed by: Jose M Franco MD on 04/21/2025 19:27:52
== END 2025-04-21 07:56 | disposition home or self-care (01) ==
LOC: HO.XRAY 07:55
PROVIDERS: Absent Provider Nurse Practitioner; PCP Nurse Practitioner Family; Visit Provider Obstetrics & Gynecology
DX: M54.6 Pain in thoracic spine (principal); R07.81 Pleurodynia
CPT/HCPCS: 71110; 72070

== ENCOUNTER → 2025-04-21 08:54 | Outpatient (BNV) | payer BC, SELFPAY | PROVIDERS: Absent Provider Nurse Practitioner; PCP Nurse Practitioner Family; Visit Provider Radiology Diagnostic Radiology | DX: M54.6 Pain in thoracic spine (principal) | CPT/HCPCS: 71110; 72070 ==

== ENCOUNTER 2025-04-22 12:45 | Outpatient (REF) | payer BC, SELFPAY ==
--- NOTE | ~2025-04-22 | US_ITS ---
EXAMINATION: US PELVIS CLINICAL INFORMATION: Follow-up ovarian cyst COMPARISON: March 02, 2025 TECHNIQUE: Ultrasound of the pelvis is performed using both transabdominal and transvaginal transducers along with Doppler. Transvaginal imaging is performed due to inadequate visualization transabdominally. FINDINGS: Uterus: The uterus is anteverted and measures 7.8 x 3.8 x 5.2 cm. The double wall endometrial thickness is 5 mm. The uterus is smooth in contour and has normal myometrial echogenicity. No visible fibroid. Prominent vessels are noted near the uterine fundus. Adnexa: Both ovaries are visualized. There is normal color flow to the adnexa. There is no ovarian torsion. There is trace free fluid. Right ovary measures 4.6 x 2.8 x 2.9 cm. Anechoic thin-walled cyst in the right ovary measures 2.5 x 3.9 cm, previously 2.8 x 3.8 cm. Left ovary measures 3.0 x 1.4 x 1.0 cm. US/US pelvic and transvaginal IMPRESSION: 3.9 cm right ovarian cyst, no follow-up is indicated. Prominent fundal region vascularity can be seen in the setting of pelvic congestion syndrome. Electronically signed by: Tahir Joseph MD 04/22/2025 02:07 PM EDT
== END 2025-04-22 12:46 | disposition home or self-care (01) ==
LOC: HO.US 12:45
PROVIDERS: PCP Nurse Practitioner Family; Visit Provider Obstetrics & Gynecology
DX: N83.299 Other ovarian cyst, unspecified side (principal)
CPT/HCPCS: 76830; 76856

== ENCOUNTER → 2025-04-22 12:47 | Outpatient (BNV) | payer BC, SELFPAY | PROVIDERS: PCP Nurse Practitioner Family; Visit Provider Radiology Diagnostic Radiology | DX: N83.291 Other ovarian cyst, right side (principal) | CPT/HCPCS: 76830; 76856 ==

== ENCOUNTER 2025-04-29 12:21 | Outpatient (AMB) | payer BC, SELFPAY ==
--- NOTE | 2025-04-29 12:23 | MHC.OFFVIS ---
Intake Visit Reasons: Ultra sound follow up per Dr. jhaveri Accompanied by: Self / Same As Patient Allergies No Known Allergies (No Known Allergies*) Allergy (Verified 04/29/25 12:25) HPI Comments Details: Presenting for ultrasound follow-up regarding left complex ovarian cyst that was seen on a pelvic ultrasound done in 03/02/2025. Follow-up ultrasound done in 04/22/25 showed the following: Uterus: The uterus is anteverted and measures 7.8 x 3.8 x 5.2 cm. The double wall endometrial thickness is 5 mm. The uterus is smooth in contour and has normal myometrial echogenicity. No visible fibroid. Prominent vessels are noted near the uterine fundus. Adnexa: Both ovaries are visualized. There is normal color flow to the adnexa. There is no ovarian torsion. There is trace free fluid. Right ovary measures 4.6 x 2.8 x 2.9 cm. Anechoic thin-walled cyst in the right ovary measures 2.5 x 3.9 cm, previously 2.8 x 3.8 cm. Left ovary measures 3.0 x 1.4 x 1.0 cm. [facility] Medical History SI (sacroiliac) joint dysfunction care, subsequent in second trimester Nausea Chronic idiopathic constipation Encounter for annual routine gynecological examination Encounter for management and injection of depo-Provera Subchorionic hemorrhage in first trimester Coccygeal pain Hematuria Surgical History No pertinent past surgical history Family History Paternal Grandfather Alzheimer's dementia Paternal Aunt Breast cancer Maternal Aunt Colon polyps Paternal Grandfather Stomach ulcer Social History Household Members: Spouse and Children Housing: House Are you a primary director of healthcare systems to a significant other at home: No Do you presently have visiting nurse or other home services: No Alcohol intake: never Patient Tobacco Use Status: Never used Tobacco Substance Use Type: Marijuana Agree to transfusion: Yes service: No 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al status: unemployed 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 Sexual orientation: Straight/Heterosexual Gender identity: Female Female Reproductive History Menstrual Age of Menarche: 16 Review of Systems Const All systems reviewed & are unremarkable except as noted in HPI and below Reports as per HPI and Reports no additional complaints GI Reports no additional complaints Reports no additional complaints Assessment & Plan Assessment & Plan (1) Complex ovarian cyst: Comment: Resolved Code(s): N83.299 - Other ovarian cyst, unspecified side Category: Medical Plan: Discussed with the patient ultrasound findings showing the previously identified complex cyst has resolved. The patient was instructed to call if symptoms recur. All questions were answered the patient verbalized understanding. Coding Level of Care Code Est Pt Level 3 (12252) Diagnoses Complex ovarian cyst N83.299
== END 2025-04-29 12:33 | disposition home or self-care (01) ==
LOC: HO.HWS 12:21
PROVIDERS: PCP Nurse Practitioner Family; Visit Provider Obstetrics & Gynecology
DX: N83.299 Other ovarian cyst, unspecified side (principal)
CPT/HCPCS: 99213

== ENCOUNTER 2025-05-09 08:53 | Emergency (ER) | payer BC, SELFPAY ==
[2025-05-09 08:57] VITALS: BP 105/66; PULSE 79; RESP 18; TEMP 35.8; O2SAT 99; BMI 25.1
[2025-05-09] MEDS: Lidocaine HCl 1 % MPF 5 ML VIAL SUBCUT (09:43)
--- NOTE | 2025-05-09 10:01 | ED_ITS ---
HPI - Wound/Laceration General Chief Complaint: Wound/Laceration Stated Complaint: injury on left eye Time Seen by Provider: 05/09/25 09:16 Source: patient Mode of arrival: ambulatory Limitations: no limitations History of Present Illness ED Provider: Tash Fuller NP HPI narrative: Patient is a 34-year-old female who presents emergency department for evaluation. She was at her home today, children were running around playing with the dog the endorse 1 open and struck her to the left brow. She denies any loss of consciousness. No recent use of anticoagulants. Denies any pain, h eadache, vision changes, dizziness, lightheadedness. Sustained a laceration to the left brow. She felt it was too deep to use skin glue so she presented to the emergency department Related Data Home Medications ?Medication ?Instructions ?Recorded ?Confirmed etonogestrel 68 mg subdermal 68 mg subdermal DAILY 04/2011/18/24 implant (Nexplanon) albuterol sulfate 90 mcg/actuation 2 puff inhalation Q 6H 05/19/24 11/18/24 aerosol inhaler wheat dextrin 3 gram/3.8 gram oral 1 packet PO DAILY 0 01/22/25 powder (Benefiber Sugar Free (dextrin)) Allergies Allergy/AdvReac Type Severity Reaction Status Date / Time No Known Allergies (No Known Allergy Verified 05/09/25 09:00 Allergies*) Review of Systems Review of Systems: Yes all other systems are reviewed and are negative PMFSH Past Medical History Attestation statement: The following information was validated with the patient. Source: old records reviewed Medical History SI (sacroiliac) joint dysfunction care, subsequent in second trimester Nausea Chronic idiopathic constipation Encounter for annual routine gynecological examination Encounter for management and injection of depo-Provera Subchorionic hemorrhage in first trimester Coccygeal pain Hematuria Surgical History No pertinent past surgical history Family History Family History Paternal Grandfather Alzheimer's dementia Paternal Aunt Breast cancer Maternal Aunt Colon polyps Paternal Grandfather Stomach ulcer Social History Social History Household Members: Spouse and Children Housing: House Are you a primary rn long term care to a significant other at home: No Do you presently have visiting nurse or other home services: No Alcohol intake: never Patient Tobacco Use Status: Never used Tobacco Substance Use Type: Marijuana Agree to transfusion: Yes Advance Directives: No Advance Directives Information Provided: No Do you have a plan to hurt others: No Plan service: No 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al status: unemployed 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 No acute distress.?Normal affect. Head: Normocephalic. 1 cm linear laceration to the lateral aspect of the left brow, edges well approximated, no active bleeding Eyes: Pupils equal, round and reactive to light. EOMI. Conjunctiva and sclera normal? No Sorensen sign noted. No raccoon eyes noted ENT: No septal hematoma, nares patent bilaterally. External auditory canal normal tympanic membrane pearly verduzco and intact bilaterally. Dentition normal, no fractured teeth. No lesions or lacerations of oropharynx. Uvula midline. Moist mucous membranes. Neck: Normal inspection.? Neck supple.??No palpable tenderness, step-off, deformities. CVS: Heart sounds normal. Normal heart rate and rhythm.? Pulses normal.?? Respiratory: No respiratory distress.? Lung sounds clear to auscultation bilaterally?? Skin: Skin warm and dry.? Normal skin color.? ?? Extremities: No lower extremity edema.? Neuro: Moves all extremities spontaneously. Sensation intact bilaterally. CN II- XII intact. No focal neuro deficits. Medications Administered Discontinued Medications Generic Name Dose Route Start Last Admin Trade Name Freq PRN Reason Stop Dose Admin Lidocaine HCl 5 ml 05/09/25 09:38 05/09/25 09:43 Lidocaine Hcl 1 % Mpf 5 Ml Vial SUBCUT 05/09/25 09:39 5 ml ONCE ONE Administration Medical Decision Making Medical Decision Making [facility] [place] Narrative: Patient is a 34-year-old female who presents emergency department for evaluation after accidental laceration sustained to the left brow. 1 cm laceration to the lateral aspect of the brow with edges well approximated no active bleeding. Head injury, no focal neurological deficits that would warrant CT head imaging, no recent use of anticoagulants. No palpable step-offs or deformities along the orbit to suggest an orbital fracture that would warrant imaging. Laceration repair under aseptic technique as per procedural portion of this note with suture. Discussed indication for improvement hemostasis of wound and healing time. Patient acknowledged understanding. Wound with sterile saline irrigation draped in usual fashion with the use of chlorhexidine. Closure with 2 simple intermittent sutures using 6-0 vicryl. Patient tolerated well, no complications. Discussed reasons to return including fever or chills, erythema, swelling, pain, purulence or odor from the wound. Advised to return for suture removal in 5 days. tetanus vaccination is up-to-date Differential Diagnosis Differential Diagnoses: The differential diagnosis associated with the presentation includes ( laceration, retained foreign body, tendon or ligamentous injury, active bleeding) External Record Review External record reviewed: Outpatient record Tests considered The following testing was considered but not selected: See narrative above, CT head/facial bones deferred Prescription Management I considered prescription management with: Pain Medication Procedures Laceration Laceration 1: Site: face Side (If applicable): left Size (cm): 2 Description: linear Depth: simple, single layer Amount of anesthesia used (mL): 2 Pre-repair: wound explored, irrigated extensively and deep structures intact Skin layer closed with: vicryl Size (cm): 6-0 Number of sutures: 2 Technique: simple, interrupted Discharge Plan Discharge Clinical Impression: Laceration of brow without complication Patient Disposition: Home, Self-Care Instructions: Laceration (ED) Additional Instructions: You may clean the area gently slowly with warm water and mild non scented soap over the next 2 days, dry the area afterwards, otherwise should remain dry until removed.? Avoid prolonged soaking in water such as swimming, soaking in the bath. Sutures will need to be removed in 5 days, you may return back to emergency department or follow-up with your primary care doctor for removal Return with any new or worsening symptoms or concerns such as increasing pain, redness, swelling, pus-like discharge, fevers or chills. Prescriptions: No Action albuterol sulfate 90 mcg/actuation HFA aerosol inhaler 2 puff inhalation Q6H Benefiber Sugar Free (dextrin) 3 gram/3.8 gram powder 1 packet PO DAILY Rx Instructions: mix into at least 4 oz water or juice before administering Nexplanon 68 mg implant 68 mg subdermal DAILY Referrals: Michelle Seth NP [Primary Care Provider, Internal Medicine] Print Language: Spanish
[2025-05-09 10:44] VITALS: BP 111/86; PULSE 75; RESP 16; TEMP -17.7; TEMP 0; O2SAT 97
== END 2025-05-09 10:45 | disposition home or self-care (01) ==
PROVIDERS: Emergency Provider Emergency Medicine; PCP Nurse Practitioner Family
DX: S05.92XA Unspecified injury of left eye and orbit, initial encounter (principal); X50.1XXA Overexertion from prolonged static or awkward postures, initial encounter; Y93.02 Activity, running; Y93.9 Activity, unspecified; Y92.9 Unspecified place or not applicable; Y99.8 Other external cause status; Z79.899 Other long term (current) drug therapy
CPT/HCPCS: 12011; 99282; 99284; J2003

== ENCOUNTER 2025-05-16 11:53 | Emergency (ER) | payer BC, SELFPAY ==
[2025-05-16 12:04] VITALS: BP 106/69; PULSE 91; RESP 16; TEMP 36.4; O2SAT 97; BMI 23.2
--- NOTE | 2025-05-16 12:05 | ED.GENADULT ---
HPI - General Adult General Chief complaint: Wound/Laceration Stated complaint: left eyebrow stitch removal Time Seen by Provider: 05/16/25 12:04 Source: patient Mode of arrival: ambulatory Limitations: no limitations History of Present Illness ED Provider: Nevaeh Cruz APRN HPI narrative: 34 yo female here seeking suture removal that were placed to left eyebrow 7 days ago. No complaints. Related Data Home Medications ?Medication ?Instructions ?Recorded ?Confirmed etonogestrel 68 mg subdermal 68 mg subdermal DAILY 04/02/24 11/18/24 implant (Nexplanon) albuterol sulfate 90 mcg/actuation 2 puff inhalation Q6H 05/19/24 11/18/24 aerosol inhaler wheat dextrin 3 gram/3.8 gram oral 1 packet PO DAILY 01/22/25 powder (Benefiber Sugar Free (dextrin)) Allergies Allergy/AdvReac Type Severity Reaction Status Date / Time No Known Allergies (No Known Allergy Verified 05/16/25 12:06 Allergies*) Review of Systems Review of Systems: Yes all other systems are reviewed and are negative Constitutional: Constitutional: Reports no additional constitutional complaints, Denies body ache(s), Denies chills, Denies fever(s), Denies headache(s) and Denies weakness Eyes: Eyes: Reports no additional eye complaints and Denies change in vision ENT: Reports system reviewed and no additional complaints, except as documented, Denies dizziness, Denies headache(s), Denies nasal congestion, Denies nasal discharge and Denies neck pain Cardiovascular: Cardiovascular: Reports no additional cardiovascular complaints, Denies chest pain, Denies leg edema and Denies dyspnea Respiratory: Respiratory: Reports no additional respiratory complaints, Denies cough and Denies dyspnea Gastrointestinal: Gastrointestinal: Reports no additional gastrointestinal complaints, Denies abdominal pain, Denies diarrhea, Denies nausea and Denies vomiting Genitourinary: Genitourinary: Reports no additional female genitourinary complaints and Denies urinary incontinence Musculoskeletal: Musculoskeletal: Reports no additional musculoskeletal complaints, Denies back pain, Denies arthralgias, Denies joint swelling, Denies neck pain, Denies numbness and Denies tingling Integumentary/Breasts: Skin/Breast: Reports system reviewed and no additional complaints, except as docu and Denies rash Neurologic: Reports system reviewed and no additional complaints, except as documented, Denies Abnormal speech present, Denies dizziness, Denies headache(s), Denies numbness, Denies tingling and Denies weakness PMFSH Past Medical History Attestation statement: The following information was validated with the patient. Source: old records reviewed and nursing notes reviewed Medical History SI (sacroiliac) joint dysfunction care, subsequent in second trimester Nausea Chronic idiopathic constipation Encounter for annual routine gynecological examination Encounter for management and injection of depo-Provera Subchorionic hemorrhage in first trimester Coccygeal pain Hematuria Surgical History No pertinent past surgical history Family History Family History Paternal Grandfather Alzheimer's dementia Paternal Aunt Breast cancer Maternal Aunt Colon polyps Paternal Grandfather Stomach ulcer Social History Social History Household Members: Spouse and Children Housing: House Are you a primary geriatric personal care aide to a significant other at home: No Do you presently have visiting nurse or other home services: No Alcohol intake: never Patient Tobacco Use Status: Never used Tobacco Substance Use Type: Marijuana Agree to transfusion: Yes Do you have a plan to hurt others: No Plan service: No 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al status: unemployed 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 Sexual orientation: Straight/Heterosexual Gender identity: Female Physical Exam ED Vital Signs: Vital Signs - 24 hr 05/16/25 12:04 Temperature 97.5 F Pulse Rate 91 Respiratory Rate 16 Blood Pressure 106/69 Pulse Oximetry 97 Oxygen Delivery Method Room Air BMI result Body Mass Index 23.2 Const General: cooperative, healthy appearing, comfortable and no acute distress Orientation/consciousness: patient oriented x3 Limitations: no limitations HENMT Head: Yes normal to inspection Ears: hearing grossly normal bilaterally General nose exam: Normal external nose present Face and sinus: Yes normal facial exam Face images:  1. 2 sutures present, edges approximated, no redness/drainage or swelling Mouth: Normal oral and palatal mucosa present Throat: Yes posterior oropharynx normal Eyes General: appearance normal, both eyes and all related structures Pupils: Equal, round and reactive pupils present Neck Neck: Yes normal visual inspection Chest Chest palpation & inspection: normal inspection of the chest Resp Effort & Inspection: normal respiratory effort Auscultation: clear to auscultation bilaterally Cardio Rate: regular rate Rhythm: regular rhythm Peripheral pulses: Peripheral pulses 2+ throughout GI Inspection: Yes normal to inspection Palpation (GI): Soft to palpation and nontender Auscultation: normal bowel sounds Back/Spine/Pelvis Thoracic/Lumbar Spine: thoracic and lumbar spine normal to inspection Skin General skin exam: no rashes or lesions noted Neuro General: patient oriented x3, no focal motor deficits and normal sensation to monofilament Cranial nerves: Yes Equal, round and reactive pupils present Cognition (Neuro): normal cognition Speech: No Abnormal speech present Gait exam (Neuro): Normal gait present Motor exam (neuro): 5/5 motor strength present throughout Extrem General: Yes normal to inspection Procedures Procedure Narrative Procedure Narrative: 2 sutures removed from laceration left eyebrow. Steri strips applied. Medical Decision Making Medical Decision Making MDM Narrative: 34 yo female here seeking suture removal that were placed to left eyebrow 7 days ago. No complaints. See procedure note. No s/s infection Differential Diagnosis Differential Diagnoses: The differential diagnosis associated with the presentation includes healing wound, suture removal, wound infection, wound dehisicience Admission/Observation Consideration of admission/observation: Escalation of care including admission/observation considered no s/s concerning for infection requiring antibiotics Prescription Management I considered prescription management with: Antibiotic Discharge Plan Discharge Clinical Impression: Visit for suture removal Patient Disposition: Home, Self-Care Instructions: Stitches Removal (ED) Prescriptions: No Action albuterol sulfate 90 mcg/actuation HFA aerosol inhaler 2 puff inhalation Q6H Benefiber Sugar Free (dextrin) 3 gram/3.8 gram powder 1 packet PO DAILY Rx Instructions: mix into at least 4 oz water or juice before administering Nexplanon 68 mg implant 68 mg subdermal DAILY Referrals: Physician,Nonstaff [Primary Care Provider, Medical] Print Language: [place]
== END 2025-05-16 12:24 | disposition home or self-care (01) ==
LOC: HO.ED 12:20
PROVIDERS: Emergency Provider Emergency Medicine; PCP Nurse Practitioner Family
DX: Z48.02 Encounter for removal of sutures (principal)
CPT/HCPCS: 99281

== ENCOUNTER 2025-05-20 16:00 | Outpatient (AMB) | payer BC, SELFPAY ==
--- NOTE | 2025-05-20 16:02 | MHC.OFFVIS ---
Vital Signs 05/20/25 16:05 Height 5 ft 6 in Weight 154 lb 12.232 oz BMI 25.0 BP 118/69 Blood Pressure Location Rt brachial Position Sitting Pulse 58 Intake Visit Reasons: follow up xrays Intake Note: Patient in office today in follow up of xray. CC: Patient reports feeling better but singh has some constipation and noticed an orange- like substance on her stool. 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 Neg EGD/colonoscopy, Neg CT since thrombus, Neg Chest CT, she questions spleen but no trauma and not imaging problems. Will get XR thoracic spine and rib XR r/o musculoskeletal problems. She is taking benefiber, no CIC or diarrhea. return office visit next available Orders: Orders XR ribs BI 3V 01/22/25 M54.6 - Pain in thoracic spine, R07.81 - Pleurodynia XR thoracic spine 2V 01/22/25 M54.6 - Pain in thoracic spine, R07.81 - Pleurodynia X-RAY OF THE RIBS AND THORACIC SPINE 04/21/2025 Findings: Lungs are clear without acute infiltrates. Heart size is normal. No pneumothorax. No acute fracture or dislocation in the rib cage. No significant focal bony abnormalities. Impression: No significant abnormalities Findings: No acute fracture or dislocation. Posterior alignment is normal. No significant degenerative change. No radiopaque foreign bodies. Impression: No acute processes TODAY'S VISIT ( Neg EGD/colonoscopy, Neg CT since thrombus, Neg Chest CT, she questions spleen but no trauma and not imaging problems. Also negative rib and thoracic spine x-ray, no gallstones on CAT scan) She has severe discomfort only when her children lay on her lower stomach. Otherwise her RUQ pain has resolved. She had some ovarian cysts, was complex on the left but this resolved, simple on rt remains. She has CIC that resolved with coffee. She is also utilizing Benefiber and eating a lot of yogurt to help her bowels. Return office visit in 6 months. Her 's trying to get a primary care provider at [facility]. [facility] Medical History Left sided abdominal pain SI (sacroiliac) joint dysfunction care, subsequent in second trimester Nausea Chronic idiopathic constipation Encounter for annual routine gynecological examination Encounter for management and injection of depo-Provera Subchorionic hemorrhage in first trimester Coccygeal pain Hematuria Surgical History No pertinent past surgical history Family History Paternal Grandfather Alzheimer's dementia Paternal Aunt Breast cancer Maternal Aunt Colon polyps Paternal Grandfather Stomach ulcer Social History Household Members: Spouse and Children Housing: House Are you a primary care management coordinator to a significant other at home: No Do you presently have visiting nurse or other home services: No Alcohol intake: never Patient Tobacco Use Status: Never used Tobacco Substance Use Type: Marijuana Agree to transfusion: Yes service: No 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al status: unemployed 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 Sexual orientation: Straight/Heterosexual Gender identity: Female Female Reproductive History Menstrual Age of Menarche: 16 Review of Systems Const Denies fatigue, Denies fever(s), Denies night sweats, Denies poor appetite and Denies weight loss ENT Reports Normal hearing present, Denies dental pain, Denies dysphagia, Denies hearing loss, Denies mouth pain, Denies odynophagia, Denies throat swelling, Denies tongue swelling and Reports other (Dentition adequate) Card Reports no additional complaints Resp Reports no additional complaints GI Details: Denies abdominal pain, Denies melena, Denies bloating, Denies hematochezia, Reports constipation, Denies GI cramping, Denies dysphagia, Denies excessive flatus, Denies early satiety, Denies heartburn, Denies diarrhea, Denies nausea, Denies odynophagia, Denies vomiting and Denies hematemesis Skin/Breast Denies pruritus, Denies lesions, Denies rash and Denies jaundice Neuro Reports Normal hearing present and Denies Abnormal speech present Endo Denies fatigue Aller/Immun Denies throat swelling and Denies tongue swelling Physical Exam Vital Signs: Last Vital Signs Pulse 58 05/20/25 16:05 BP 118/69 05/20/25 16:05 BMI result Body Mass Index 25.0 Const General: cooperative, no acute distress, well developed and well groomed Nutritional Appearance: well nourished Orientation/consciousness: oriented to person, oriented to place and oriented to time Limitations: No language barrier HEENT Head: Yes normocephalic and Yes atraumatic Eyes General: appearance normal, both eyes and all related structures Pupils: Equal, round and reactive pupils present Neck Neck: Yes normal visual inspection and Yes no lymphadenopathy Thyroid: Thyroid normal Resp Effort & Inspection: normal respiratory effort and able to speak in complete sentences Auscultation: clear to auscultation bilaterally Cardio Rate: regular rate Rhythm: regular rhythm Heart sounds: Normal, physiologic split S2 sound present Peripheral pulses: radial pulses present and posterior tibial pulses present GI Inspection: No distended and No Abdominal panniculus present Palpation (GI): Soft to palpation, Tenderness to palpation present (GI) (Very mild) in the LLQ and in the RLQ, no guarding, not rigid, No hepatosplenomegaly present and Hepatosplenomegaly present Percussion: Yes normal to percussion Auscultation: normal bowel sounds Rectal Exam - Female: deferred Skin General skin exam: no rashes or lesions noted, turgor normal, skin not dry, no jaundice, No spider nevi and no striae Rashes: no rashes Nails: normal Neuro General: oriented to person, oriented to place and oriented to time Cranial nerves: Yes Equal, round and reactive pupils present and Yes Normal hearing present Speech: No Abnormal speech present Extrem General: Yes normal to inspection, No clubbing, No cyanosis and No edema Psych Appearance: grossly normal and well kempt Mental Status: mental status grossly normal Speech and movement: Normal speech and movement present Affect: normal affect Attitude: cooperative Thought process: Normal thought process present and not confabulating Thought content: Normal thought content present Insight: Good insight present (Psych) Judgement: Good judgement present (Psych) Assessment & Plan Assessment & Plan (1) Right upper quadrant abdominal pain: Code(s): R10.11 - Right upper quadrant pain Category: Medical (2) Thrombosis of ovarian vein: Code(s): I82.890 - Acute embolism and thrombosis of other specified veins Category: Medical (3) Thrombosis of pelvic vein: Code(s): I82.890 - Acute embolism and thrombosis of other specified veins Category: Medical Plan ( Neg EGD/colonoscopy, Neg CT since thrombus, Neg Chest CT, she questions spleen but no trauma and not imaging problems. Also negative rib and thoracic spine x-ray, no gallstones on CAT scan) She has severe discomfort only when her children lay on her lower stomach. Otherwise her RUQ pain has resolved. She had some ovarian cysts, was complex on the left but this resolved, simple on rt remains. recent pelvic ultrasound other than this, only shows possible pelvic congestion syndrome which could be the source of her discomfort. She has CIC that resolved with coffee. She is also utilizing Benefiber and eating a lot of yogurt to help her bowels. Return office visit in 6 months. Her 's trying to get a primary care provider at [facility] Coding Level of Care Code Est Pt Level 3 (49140) Diagnoses Right upper quadrant abdominal pain R10.11 Thrombosis of ovarian vein I82.890 Thrombosis of pelvic vein I82.890
[2025-05-20 16:05] VITALS: BP 118/69; PULSE 58; BMI 25.0
== END 2025-05-20 16:26 | disposition home or self-care (01) ==
LOC: HO.HGI 16:01
PROVIDERS: PCP Nurse Practitioner Family; Visit Provider Nurse Practitioner
DX: R10.11 Right upper quadrant pain (principal); I82.890 Acute embolism and thrombosis of other specified veins
CPT/HCPCS: 99213

== ENCOUNTER 2025-07-14 21:05 | Emergency (ER) | payer BC, SELFPAY ==
--- NOTE | 2025-07-14 21:10 | ED_ITS ---
HPI - General Adult General Chief complaint: Dyspnea Stated complaint: Asthma attack Time Seen by Provider: 07/14/25 21:10 History of Present Illness ED Provider: Ayan FINK narrative: The patient is a 34-year-old female who says that she started feeling short of breath this morning. Her shortness of breath progressed throughout the day and she started using her albuterol inhaler. She used her inhaler several times throughout the afternoon without improvement and ultimately came to the emergency room. She was using her inhaler without an AeroChamber. The patient says that her hair got wet yesterday and she had opened up her windows and expose herself to the cold air. She thinks that this may have triggered the exacerbation. No fever, sweats, chills. She says that she very rarely uses her albuterol inhaler. It has been at least several months if not a year since she has needed to use her inhaler at all. Related Data Home Medications ?Medication ?Instructions ?Recorded ?Confirmed etonogestrel 68 mg subdermal 68 mg subdermal DAILY 04/2011/18/24 implant (Nexplanon) albuterol sulfate 90 mcg/actuation 2 puff inhalation Q 6H 05/19/24 11/18/24 aerosol inhaler wheat dextrin 3 gram/3.8 gram oral 1 packet PO DAILY 0 01/22/25 powder (Benefiber Sugar Free (dextrin)) Previous Rx's ?Medication ?Instructions ?Recorded budesonide-formoterol HFA 160 2 puff inhalation BID #1 0.2 grams 07/14/25 mcg-4.5 mcg/actuation aerosol inhaler prednisone 20 mg tablet 20 mg PO DAILY #12 tabs 06/28 05/21 Allergies Allergy/AdvReac Type Severity Reaction Status Date / Time No Known Allergies (No Known Allergy Verified 07/14/25 21:25 Allergies*) Review of Systems Review of Systems: Yes all other systems are reviewed and are negative PMFSH Past Medical History Medical History Left sided abdominal pain SI (sacroiliac) joint dysfunction care, subsequent in second trimester Nausea Chronic idiopathic constipation Encounter for annual routine gynecological examination Encounter for management and injection of depo-Provera Subchorionic hemorrhage in first trimester Coccygeal pain Hematuria Surgical History No pertinent past surgical history Family History Family History Paternal Grandfather Alzheimer's dementia Paternal Aunt Breast cancer Maternal Aunt Colon polyps Paternal Grandfather Stomach ulcer Social History Social History Household Members: Spouse and Children Housing: House Are you a primary childcare worker to a significant other at home: No Do you presently have visiting nurse or other home services: No Alcohol intake: never Patient Tobacco Use Status: Never used Tobacco Substance Use Type: Marijuana Agree to transfusion: Yes Advance Directives: No Advance Directives Information Provided: Yes service: No 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al status: unemployed 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 Sexual orientation: Straight/Heterosexual Gender identity: Female Physical Exam ED Vital Signs: Vital Signs - 24 hr 07/14/25 21:22 07/14/25 21:27 07/14/25 21:39 Temperature 98.6 F Pulse Rate 100 98 Pulse Rate [Monitor] 100 Respiratory Rate 19 16 Blood Pressure 100/65 Pulse Oximetry 96 Oxygen Delivery Method Room Air 07/14/25 22:00 07/14/25 23:53 Temperature 98.6 F Pulse Rate 110 H 110 H Pulse Rate [Monitor] Respiratory Rate 32 H 32 H Blood Pressure 103/62 103/62 Pulse Oximetry 95 95 Oxygen Delivery Method Room Air Room Air BMI result Body Mass Index 24.7 Const Other: The patient was awake and alert. She was pleasant and cooperative. She was showing signs of significant increased work of breathing. Orientation/consciousness: patient oriented x3 HENMT Other: The face is symmetrical. ?Mucous membranes moist. Eyes Other: Pupils are round equal, conjunctivae are clear, extraocular movements intact Neck Neck: Yes normal visual inspection, Yes full ROM, Yes no lymphadenopathy and Yes no JVD Resp Other: The patient had evident increased work of breathing with increased accessory muscle use and intercostal retraction. She had diffuse loud wheezes throughout all lung [place]. Cardio Rate: regular rate Rhythm: regular rhythm Heart sounds: S1 normal heart sound present and S2 normal heart sound present GI Other: Abdomen is soft and nontender Skin Other: The skin is dry and unremarkable Neuro General: patient oriented x3, gait normal, tone normal, moves all extremities, no focal motor deficits and CN's II-XI intact bilaterally Extrem Other: There is no calf swelling or tenderness. No asymmetry. No peripheral edema. Medications Administered Discontinued Medications Generic Name Dose Route Start Last Admin Trade Name Eve PRN Reason Stop Dose Admin Albuterol Sulfate 2.5 mg/ 0 mg 07/14/25 21:19 07/14/25 21:22 Albuterol/Ipratropium 3 ml INHALE 07/14/25 21:20 1 dose ONCE ONE Administration Prednisone 60 mg 07/14/25 21:13 07/14/25 21:29 Prednisone 20 Mg Tablet PO 07/14/25 21:14 60 mg ONCE ONE Administration Medical Decision Making Medical Decision Making [facility] Narrative: The patient presents with significant shortness of breath and increased work of breathing with what seems to be a fairly straight forward asthma exacerbation. I do not think there was an infectious component to this and I do not think there was an alternative diagnosis given the obvious wheezing. The patient was given a DuoNeb updraft. She was given 60 mg of prednisone. She was observed. She seemed to have a fairly positive response to the treatment. At 1st she was feeling quite jittery and tachycardic after the updraft. She was observed. These symptoms resolved. Ultimately I felt that she was doing well enough that additional treatments were not indicated and would probably be likely to make you very tachycardic. She felt comfortable being discharged. The respiratory therapist had given her instruction in the use of an AeroChamber, this was a new concept for her. She was discharged with the an AeroChamber. I will write prescriptions for 5 days of prednisone and also for a budesonide formoterol inhaler. She has a primary care doctor in his advised to follow up with the primary care doctor. Return if worse. Lab Data Labs: Lab Results 07/14/25 Range/Units 22:06 Influenza Type A (PCR) NEGATIVE (Negative) Influenza Type B (PCR) NEGATIVE (Negative) RSV RNA Qual (PCR) NEGATIVE (Negative) SARS-CoV-2 RNA (RT-PCR) NEGATIVE (Negative) Discharge Plan Discharge Clinical Impression: Acute asthma exacerbation Patient Disposition: Home, Self-Care Instructions: Asthma (ED), How to Use a Metered-Dose Inhaler (ED) Additional Instructions: Tonight you may continue to use your albuterol inhaler 2 puffs every 4 hours as needed. Please use the AeroChamber (also called a Spacer) when you use your albuterol inhaler. I have sent a prescription for additional prednisone to your pharmacy. Please take this medication once a day until done. Prednisone as a steroid medication that helps reduce the inflammation of an asthma exacerbation. Additionally, I have sent a prescription for a different inhaler. This inhaler is a budesonide-formoterol inhaler. This medication combines a bronchodilator and an inhaled steroid. Recent evidence is shown that this kind of inhaler is more effective than albuterol alone. You may use this inhaler in the same way that you would use an albuterol inhaler. Additionally, once this exacerbation of your asthma has resolved, it may be useful to use this new medication once a day to help prevent future exace rbations. However this is a practice you may discuss with your regular primary care doctor. Please contact your primary care doctor's office in the morning to set up an appointment in the next couple of weeks for a recheck to discuss this episode further. Return to the emergency room if your shortness breath is significantly worse. Prescriptions: New prednisone 20 mg tablet 20 mg PO DAILY Qty: 12 0RF Rx Instructions: Take 3 tablets by mouth daily for 2 days then take 2 tablets by mouth daily for 3 days. budesonide-formoterol 160-4.5 mcg/actuation HFA aerosol inhaler 2 puff inhalation BID Qty: 10.2 0RF No Action albuterol sulfate 90 mcg/actuation HFA aerosol inhaler 2 puff inhalation Q6H Benefiber Sugar Free (dextrin) 3 gram/3.8 gram powder 1 packet PO DAILY Rx Instructions: mix into at least 4 oz water or juice before administering Nexplanon 68 mg implant 68 mg subdermal DAILY Referrals: [facility] [Provider Group, Family Practice] Interventions: ED Discharge Assessment Last Done: 07/14/25 23:53 Discharge Date/Time: 07/14/25 23:54 Print Language: Burmese
[2025-07-14 21:22] VITALS: BP 100/65; PULSE 100; RESP 19; TEMP 37; O2SAT 96; BMI 24.7
[2025-07-14] MEDS: Albuterol Sulfate 2.5 MG, Albuterol/Iprat 2.5/0.5MG 3 ML 3 ML INHALE (21:22)
[2025-07-14 21:27] VITALS: PULSE 98; RESP 16; O2SAT 96
[2025-07-14 21:39] VITALS: PULSE 100
[2025-07-14 22:00] VITALS: BP 103/62; PULSE 110; RESP 32; O2SAT 95
[2025-07-14 22:48] LABS: Resp Syncy Virus RNA Qual PCR NEGATIVE (Negative); SARS COV2 PCR INHOUSE NEGATIVE (Negative)
[2025-07-14 23:53] VITALS: BP 103/62; PULSE 110; RESP 32; TEMP 37; O2SAT 95
== END 2025-07-14 23:54 | disposition home or self-care (01) ==
PROVIDERS: Emergency Provider Emergency Medicine; PCP Nurse Practitioner Family
DX: J45.901 Unspecified asthma with (acute) exacerbation (principal)
CPT/HCPCS: 87637; 94640; 99284; 99285